=== PATIENT | male | born 1965 | race Hispanic/Latino ===

== ENCOUNTER 2017-07-15 22:59 | Emergency (ER) | payer MEDICARE, OTHER ==
[2017-07-15 23:01] VITALS: BMI 29.2
[2017-07-15 23:21] VITALS: O2SAT 98
[2017-07-15 23:52] VITALS: BP 143/82; PULSE 59; RESP 17; TEMP 98.8
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
== END 2017-07-16 00:38 | disposition home or self-care (01) ==
LOC: ED 22:59
DX: Z00.00 Encounter for general adult medical examination without abnormal findings (principal); I10 Essential (primary) hypertension; J44.9 Chronic obstructive pulmonary disease, unspecified

== ENCOUNTER 2018-06-08 18:04 | Inpatient (IN) | payer MEDICARE, OTHER ==
[2018-06-08 18:04] VITALS: BMI 29.2
[2018-06-08 18:22] LABS: BASO # 0.02 K/mm3 (0.0-2.0); BASO % 0.3 % (0.0-3.0); EOS # 0.1 (0.0-0.7); EOS % 1.5 % (1.5-5.0); GRAN # 4.87 (1.4-6.5); GRAN % 71.3 % (50.0-68.0); HEMOGLOBIN 12.3 g/dL (14.0-18.0); LYMPH # 1.3 (1.2-3.4); LYMPH % 18.4 % (22.0-35.0); MEAN CELL VOLUME 96.5 fl (80.0-105.0); MEAN CORPUSCULAR HEMOGLOBIN 32.9 pg (25.0-35.0); MEAN CORPUSCULAR HGB CONC 34.1 g/dl (31.0-37.0); MEAN PLATELET VOLUME 8.7 fl (7.0-11.0); MONO # 0.6 (0.1-0.6); MONO % 8.5 % (1.0-6.0); RBC 3.74 10^6/uL (3.5-6.1); RED CELL DISTRIBUTION WIDTH 13.3 % (11.5-14.5); WHITE BLOOD COUNT 6.8 10^3/ul (4.5-11.0)
[2018-06-08 18:32] LABS: INR 1.14; PARTIAL THROMBOPLASTIN TIME 34.3 Seconds (25.1-36.5)
[2018-06-08 18:34] LABS: ALB/GLOB RATIO 1.4 (1.1-1.8); ALBUMIN 4.2 g/dL (3.0-4.8); ALT/SGPT 29 U/L (7-56); AST/SGOT 52 U/L (17-59); BLOOD UREA NITROGEN 8 mg/dL (7-21); CALCIUM 8.8 mg/dL (8.4-10.5); GFR NON-AFRICAN AMERICAN > 60
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
[2018-06-08] MEDS ORDERED: Ergocalciferol 50,000 Intl Units Cap PO SCH (19:30)
[2018-06-08] MEDS ORDERED: Multivitamin (MVI) 10 ML, Thiamine 100 MG, Folic Acid 1 MG in Sodium Chloride 0.9% 1,00... IV ONE (19:35)
[2018-06-08 19:43] LABS: URINE APPEARANCE CLEAR (CLEAR); URINE BILIRUBIN NEGATIVE (NEGATIVE); URINE BLOOD SMALL (NEGATIVE); URINE COLOR LIGHT YELLOW (YELLOW); URINE GLUCOSE (UA) NEGATIVE (NEGATIVE); URINE LEUKOCYTE ESTERASE NEGATIVE Leu/uL (NEGATIVE); URINE PROTEIN NEGATIVE mg/dL (<30 mg/dL); URINE UROBILINOGEN 0.2 E.U./dL (<1 E.U./dL)
[2018-06-08] MEDS: Ergocalciferol 50,000 Intl Units Cap PO SCH (19:46)
[2018-06-08 19:52] LABS: URINE BACTERIA NEG (NEG); URINE EPITHELIAL CELLS 0 - 2 /hpf (0-5); URINE HYALINE CAST 0 - 2 /hpf; URINE RBC 0 - 2 /hpf (0-2); URINE WBC NEGATIVE /hpf (0-6)
[2018-06-08] MEDS ORDERED: Levalbuterol 1.25 MG/3 ML Inhal Soln UD IH SCH (20:00)
[2018-06-08] MEDS: Magnesium Sulfate 2 gm/50 ml 2 GM/50 ML BAG IVPB SCH (22:47)
[2018-06-08 23:31] LABS: TROPONIN I 0.03 ng/mL
[2018-06-08 23:34] LABS: CK MB% 0.9 % (2.5-3.0); CK-MB 5.7 ng/mL (0.0-3.6)
[2018-06-08 23:36] LABS: FREE T4 0.75 ng/dL (0.78-2.19); T4 6.8 ug/dL (5.5-11.0)
[2018-06-09 01:32] LABS: BARBITURATES, UR NEGATIVE (NEGATIVE); BENZODIAZEPINES, UR NEGATIVE (NEGATIVE); OPIATES, UR NEGATIVE (NEGATIVE); PHENCYCLIDINE, UR NEGATIVE (NEGATIVE)
[2018-06-09 01:34] LABS: CK MB% 0.8 % (2.5-3.0); CK-MB 5.7 ng/mL (0.0-3.6); TROPONIN I 0.19 ng/mL
[2018-06-09] MEDS: Magnesium Sulfate 2 gm/50 ml 2 GM/50 ML BAG IVPB SCH (03:40)
[2018-06-09] MEDS: Pantoprazole 40 mg EC Tab PO SCH (06:07)
[2018-06-09 06:39] LABS: BASO # 0.03 K/mm3 (0.0-2.0); BASO % 0.3 % (0.0-3.0); EOS % 0.5 % (1.5-5.0); GRAN # 5.74 (1.4-6.5); GRAN % 65.3 % (50.0-68.0); HEMOGLOBIN 11.6 g/dL (14.0-18.0); LYMPH # 2.2 (1.2-3.4); LYMPH % 24.5 % (22.0-35.0); MEAN CELL VOLUME 95.5 fl (80.0-105.0); MEAN CORPUSCULAR HEMOGLOBIN 32.5 pg (25.0-35.0); MEAN PLATELET VOLUME 8.7 fl (7.0-11.0); MONO # 0.8 (0.1-0.6); MONO % 9.4 % (1.0-6.0); RBC 3.57 10^6/uL (3.5-6.1); RED CELL DISTRIBUTION WIDTH 13.2 % (11.5-14.5); WHITE BLOOD COUNT 8.8 10^3/ul (4.5-11.0)
[2018-06-09 07:04] LABS: ALB/GLOB RATIO 1.2 (1.1-1.8); ALBUMIN 3.7 g/dL (3.0-4.8); ALT/SGPT 29 U/L (7-56); AST/SGOT 50 U/L (17-59); BILIRUBIN,DIRECT 0.1 mg/dL (0.0-0.4); BLOOD UREA NITROGEN 6 mg/dL (7-21); CALCIUM 8.5 mg/dL (8.4-10.5); GFR NON-AFRICAN AMERICAN > 60; HDL CHOLESTEROL 59 mg/dL (29-60); TROPONIN I 0.18 ng/mL
[2018-06-09 07:05] LABS: LDL CHOLESTEROL 56 mg/dL (0-129)
--- NOTE | 2018-06-09 07:05 | HP ---
HISTORY OF PRESENT ILLNESS: The patient is a 52-year-old male was brought to the [facility] emergency room by [facility]. According to the patient's mother, the patient was brought to the emergency room after the patient sustained multiple seizures and the patient's mother witnessed the patient's seizure and even once seizure was witnessed by EMS. The patient was found to be unresponsive by the EMS and bright blood was noted in the nostrils. The patient was placed on nonrebreather bath, fingerstick blood sugar was checked which was 108 and the patient was brought to the emergency room for evaluation as per the triage note. According to the ER physician evaluation, the patient was brought to the emergency room and they found the patient in the apartment floor. The patient was in the bathroom and he fell in the floor during the seizure. Mother has noticed that the patient has not been taking his Dilantin. When the EMS was present, the patient had two witnessed seizure. The patient was transferred to [facility] emergency room. Recently in the last couple of weeks, the patient's mother has contacted the office and informed that the patient is missing but today after the patient's mother called back to me, the patient's mother stated that the patient was found [place] [address] and she brought him back but also the patient's mother stated that the patient was in the emergency room at [facility] because the patient had some papers in the emergency room and according to the [facility] record, the patient was in the emergency room 05/25 to 05/26 and the discharge diagnosis was substance abuse where the patient had a CT of the head done. The patient was seen in the emergency room in stretcher #3. The patient is seen lying in the bed. CODE STATUS: Full code. LIVING WILL ADVANCE DIRECTIVE: None. ALLERGIES: Aspirin. HEIGHT: 6 feet. WEIGHT: 170. BMI: 23. HOME MEDICATIONS: The patient's most active home medications as per our last office visit. The patient is supposed to be on Crestor 20 mg daily; vitamin B12 injection once a month; Periactin 4 mg twice a day; Dilantin 200 mg 8 a.m., Dilantin 100 mg 2 p.m. and Dilantin 200 mg 8 p.m.; Drisdol 50,000 every 2 weeks; folic acid 1 mg daily; Lexapro 10 mg daily; and Prilosec [id number] which the patient takes. SOCIAL HISTORY: Positive for smoking and alcohol. History of cocaine abuse, history of alcohol dependence, history of nicotine addiction. OCCUPATIONAL HISTORY: Disabled. PAST MEDICAL HISTORY: History of bilateral craniotomy, history of head trauma, history of recurrent fall, history of seizure disorder, posttraumatic brain injury, history of vitamin B12 deficiency, history of poor appetite, history of hypovitaminosis D, history of depression, history of inpatient psychiatric hospitalizations, history of extremely poor compliance, history of cerebral cortical atrophy of the brain, history of left temporal lobe seizure focus, history of right-sided pulmonary nodule, history of multiple falls, history of multiple facial trauma, history of left occipital lobe cystic encephalomalacia, history of small vessel ischemic disease of the brain, history of pulmonary hypertension with right ventricular systolic pressure of 60 mmHg, history of moderate tricuspid regurgitation, history of [id number] pulmonary hypertension, history of URI, history of intermittent incomplete right bundle-branch block. Past medical history is also significant for seizure disorder with left cerebral dysfunction and history of epileptogenic focus in the left temporal lobe, history of simple partial seizures originating in the left cerebral hemisphere with secondary generalization. 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 PHYSICAL EXAMINATION: GENERAL: The patient is seen in stretcher #3. The patient is seen lying in the bed. The patient is on nonrebreather mask, but arousable to verbal stimuli. VITAL SIGNS: T-max 97.6. Telemetry shows sinus rhythm, sinus bradycardia, heart rate 54, 57; blood pressure 152/84, 147/80, 131/81, 134/81, 134/89; respiration 20-21; O2 sat 100%. The patient is seen lying in the bed. HEENT: The patient's head examination shows positive craniotomy. Pinkish pale conjunctivae. Dry oral mucosa. Positive contusion of the face and nose noted. No neck rigidity. CHEST: Kyphosis. LUNGS: Examination shows positive rhonchi bilaterally, upper lung field. CARDIOVASCULAR: S1, S2. Positive systolic murmur at left sternal border, right second intercostal space, left second intercostal space. ABDOMEN: Soft. Positive bowel sounds. No hepatosplenomegaly noted. GENITALIA: Male. RECTAL: Examination is deferred. EXTREMITIES: Shows no pitting edema, no calf tenderness, no Homans' sign. MUSCULOSKELETAL: Examination shows a body mass index of 23. NEUROLOGIC: The patient is arousable, responsive to painful verbal stimuli. Patient's neurological examination is limited but arousable to painful verbal stimuli. The patient is able to move upper and lower extremity to painful stimuli. The patient is disoriented, but arousable. DIAGNOSTICS: CBC: Hemoglobin/hematocrit 12.3/36.1, granulocytes 71. PT/PTT 13 and 34. Chemistry: LFTs are significant for magnesium was 1.6. Small blood in the urinalysis. Dilantin level less than 3. Alcohol level less than 10. Urine drug screen pending. The patient had a CT of the head and maxillofacial CT which was reviewed. The patient was seen and evaluated in the emergency room by the ER physician, Dr. Jamil. The patient was treated in the emergency room. The patient was given IV Dilantin 1 g. The patient was advised to be admitted. The patient was treated in the emergency room by Dr. Jamil. The patient was given Ativan 2 mg x2 doses. The patient was given Dilantin 1 g IV load. The patient was admitted to the [facility]. The patient's recent discharge papers from [facility] and papers from which the patient has accompanied shows that the patient has been having suicidal ideation. IMPRESSION: 1. Recurrent witnessed seizures secondary to noncompliance with antiepileptic drugs. 2. Questionable suicidal ideation. 3. Postictal state. 4. Bradycardia. 5. Hypertension. 6. History of history of traumatic brain injury, history of multiple bilateral craniotomy. 7. Anemia. 8. Granulocytosis. 9. Hypomagnesemia. 10. Microscopic hematuria. 11. History of active nicotine, alcohol and drug use and dependence. 12. Facial contusion secondary to fall. 13. Bilateral nasal bone fracture with displacement to the right. 14. Chronic microvascular ischemic disease of the brain. 15. Bifrontal scalp swelling. 16. Gait dysfunction and recurrent falls. PLAN: At this time, the patient is being ordered Dilantin level which is done. The patient has been ordered a urine drug screen. Thyroid panel has been ordered. Repeat CPK, troponin, Dilantin level, CMP, LFTs, lipid panel, CBC have been ordered. Neurology, ENT and Psychiatry consultation has been ordered. RPR is ordered. The patient's current medications; the patient is on banana bag. The patient has been given Colace 100 three times a day, Dilantin 1 g IV was given in the emergency room, Drisdol 50,000 weekly, DuoNeb nebulizer every 6 hours, Ecotrin 81 mg daily, folic acid 1 mg daily, heparin 5000 subcu every 8, Lipitor 40 mg daily, magnesium sulfate rider x2, nicotine patch 21 mg daily, Protonix 40 mg daily, Tylenol p.o. suppository p.r.n., thiamine 100 mg daily, vitamin B12 to be resumed 1000 mcg, Xopenex nebulizer 0.63 mg every 6 hours, Zofran 4 mg IV every 4 hours p.r.n., incentive spirometry, oxygen 2 liters. EEG. The patient is kept n.p.o. at this time because of the postictal state. The patient has been ordered elevation of the head of the bed at 30 degrees. Neuro checks, seizure precaution, CURT stockings, SCDs, speech swallow, physical therapy, occupational therapy evaluation and treatment. At present, the patient is awaiting for a telemetry bed in the emergency room. The patient's further management will be dependent upon the patient's clinical condition, hemodynamic status and as per the patient's response to therapeutic intervention as per the patient's diagnostic test results. The patient's overall prognosis is guarded to poor, which the patient's mother is aware of. Dictated and electronically signed, not read. Stephen Thornton MD
[2018-06-09] MEDS ORDERED: Pantoprazole 20 mg EC Tab PO SCH (07:30)
[2018-06-09 07:42] LABS: CK-MB 3.5 ng/mL (0.0-3.6)
[2018-06-09] MEDS ORDERED: Sodium Chloride 0.9% 250 ML IV STA (09:15)
--- NOTE | 2018-06-09 09:25 | RAD ---
Date of service: 06/08/2018 HISTORY: seizure COMPARISON: 11/12/2015 FINDINGS: LUNGS: No active pulmonary disease. PLEURA: No significant pleural effusion identified, no pneumothorax apparent. CARDIOVASCULAR: Normal. OSSEOUS STRUCTURES: Multiple old healed right rib fractures. Probable old healed right clavicular fracture. VISUALIZED UPPER ABDOMEN: Normal. OTHER FINDINGS: None. IMPRESSION: No active disease. Multiple old healed right rib fractures. Probable old healed right clavicular fracture.
--- NOTE | 2018-06-09 09:49 | CARD ---
APPROVED REPORT Date of service: 06/08/2018 EKG Measurement Heart [id number] <Conclusion> Sinus rhythm with 1 PVC C/W ECG 11/12/15: No IRBBB and improved repolarization now.
[2018-06-09] MEDS: Enoxaparin 40 mg Syringe SC SCH (10:11)
[2018-06-09] MEDS: Sodium Chloride 0.9% 1,000 ML IV SCH ×2 (10:16→20:23)
--- NOTE | 2018-06-09 10:47 | CON ---
DATE: 06/09/2018 HISTORY OF PRESENT ILLNESS: The patient is a 52-year-old male who is brought in by [facility] after being found at home. The patient has had apparently a long history of seizures and it was likely to have a seizure at home. He was found unresponsive. PAST MEDICAL HISTORY: The patient's past medical history is notable for previous history of seizures. He also has a long history of substance abuse. The patient is unable and unwilling to give history, so most of his history is done through his past medical records. He has been hospitalized in the past for psychiatric issues as documented, pulmonary hypertension as well as a history of dementia and cognitive issues. SOCIAL HISTORY: He is an active smoker and has a drug and alcohol abuse history. PHYSICAL EXAMINATION: GENERAL: Currently, the patient is in bed. He is unwilling to be examined and unwilling to give history. VITAL SIGNS: The blood pressure is 101/68, the heart rates in the 50s. NECK: Negative JVD. LUNGS: Decreased breath sounds. HEART: Reveal S1, S2. EXTREMITIES: Without edema. EKG shows no acute changes. LABORATORY DATA: Hemoglobin is 11.6. Chemistries, troponins are 0.19 and 0.18, BUN and creatinine unremarkable. Magnesium is normal at 2.7. IMPRESSION: 1. Elevated troponins. 2. Normal EKG. 3. History of seizures. 4. Hepatitis C. 5. History of substance abuse. 6. Chronic obstructive pulmonary disease. 7. Pulmonary hypertension. 8. History of alcoholism. Given these findings, we will need to rule out a pulmonary embolism as a cause of his elevated troponin. The patient is not in any condition at this point to consider cardiac catheterization if his CT scan comes back normal or CT scan has ruled out a pulmonary embolism. Given his seizure disorder, I do not feel anticoagulation would be appropriate. Javier Reynoso MD
--- NOTE | 2018-06-09 13:30 | CARD ---
APPROVED REPORT Date of service: 06/09/2018 EKG Measurement Heart [id number] <Conclusion> Marked sinus bradycardia
--- NOTE | 2018-06-09 14:44 | CP.PCM.HP ---
History of Present Illness - History of Present Illness History of Present Illness: PGY-[address] Thornton Mr Chambers is a 50-year-old man with a past medical history of alcohol use disorder, history of seizure disorder, Hepatitis C, who was transported by EMS to the Emergency Department where they found him on the apartment floor. Per EMS patient was in the bathroom where he presumably fell to the floor during his seizure. Grandmother also notes he has not been taking his seizure mediations for the past 6 months. Per retail pharmacy manager on route patient was unresponsive, had 2 seizures with no foaming with eyes closed. The patient was awake and alert but not answering questions thus a thorough review of systems and history could not be collected. It's possible he was post-ictal. PMD: Dr Thornton PMHx: alcohol use disorder, history of seizure disorder, Hepatitis C Present on Admission - Present on Admission Any Indicators Present on Admission: No Review of Systems - Review of Systems Systems not reviewed;Unavailable: Uncooperative Past Patient History - Infectious Disease Hx of Infectious Diseases: None - Past Social History Smoking Status: Heavy Smoker > 10 Cigarettes Daily - CARDIAC Hx Cardiac Disorders: Yes Hx Hypertension: Yes - PULMONARY Hx Respiratory Disorders: Yes Hx Chronic Obstructive Pulmonary Disease (COPD): Yes - NEUROLOGICAL Hx Neurological Disorder: Yes Hx Alzheimer's Disease: Yes Hx Dementia: Yes Hx Seizures: Yes (EPILEPSY) - HEENT Hx HEENT Problems: Yes Hx Difficulty Chewing: Yes - RENAL Hx Chronic Kidney Disease: No - ENDOCRINE/METABOLIC Hx Endocrine Disorders: No - HEMATOLOGICAL/ONCOLOGICAL Hx Blood Disorders: Yes Hx Hepatitis C: Yes - INTEGUMENTARY Hx Dermatological Problems: Yes Other/Comment: large abrasion to left side of face and left lateral eye, multiple bruises to both knees, pt is unkempt, thick hard toenails and dry fl akey skin to both feet, small scratch to right 2nd knuckle - MUSCULOSKELETAL/RHEUMATOLOGICAL Hx Musculoskeletal Disorders: Yes Hx Falls: Yes - GASTROINTESTINAL Hx Gastrointestinal Disorders: No - GENITOURINARY/GYNECOLOGICAL Hx Genitourinary Disorders: No - PSYCHIATRIC Hx Psychophysiologic Disorder: Yes Hx Psychosis: Yes - SURGICAL HISTORY Hx Surgeries: Yes Other/Comment: left LE fracture merlyn placed. craniotomy. BL clifford hole - ANESTHESIA Hx Anesthesia: No Hx Anesthesia Reactions: No Hx Malignant Hyperthermia: No Meds Allergies/Adverse Reactions: Allergies Allergy/AdvReac Type Severity Reaction Status Date / Time No Known Allergies Allergy Verified 06/09/18 12:06 Physical Exam - Constitutional Appears: Unkempt, Older Than Stated Age, Chronically Ill - Head Exam Head Exam: ATRAUMATIC, NORMAL INSPECTION - Eye Exam Eye Exam: EOMI, Normal appearance, PERRL - ENT Exam ENT Exam: Mucous Membranes Dry - Neck Exam Neck exam: Positive for: Normal Inspection. Negative for: Thyromegaly - Respiratory Exam Respiratory Exam: Clear to Auscultation Bilateral, NORMAL BREATHING PATTERN. absent: Rales, Rhonchi, Wheezes - Cardiovascular Exam Cardiovascular Exam: REGULAR RHYTHM, +S1, +S2. absent: Tachycardia, JVD, Systolic Murmur - GI/Abdominal Exam GI & Abdominal Exam: Normal Bowel Sounds. absent: Tenderness - Extremities Exam Extremities exam: Positive for: normal inspection - Neurological Exam Neurological exam: Alert Additional comments: patient not cooperative with neuro exam, possibly post-ictal - Psychiatric Exam Psychiatric exam: Flat Affect - Skin Skin Exam: Normal Color, Warm Additional comments: tattoo's all over body Results - Vital Signs Recent Vital Signs: Last Vital Signs Temp 98 F 06/09/18 13:52 Pulse 60 06/09/18 14:37 Resp 20 06/09/18 14:37 BP 117/63 06/09/18 14:37 Pulse Ox 98 06/09/18 14:37 - Labs Result Diagrams: 06/09/18 06:20 06/09/18 06:20 Labs: Laboratory Results - last 24 hr 06/08/18 06/08/18 06/08/18 18:19 18:19 18:19 WBC 6.8 RBC 3.74 Hgb 12.3 L Hct 36.1 L MCV 96.5 MCH 32.9 MCHC 34.1 RDW 13.3 Plt Count 283 MPV 8.7 Gran % 71.3 H Lymph % (Auto) 18.4 L Avery % (Auto) 8.5 H Eos % (Auto) 1.5 Baso % (Auto) 0.3 Gran # 4.87 Lymph # (Auto) 1.3 Avery # (Auto) 0.6 Eos # (Auto) 0.1 Baso # (Auto) 0.02 PT 13.0 H INR 1.14 APTT 34.3 Sodium 140 Potassium 3.7 Chloride 104 Carbon Dioxide 22 Anion Gap 18 BUN 8 Creatinine 0.7 L Est GFR ( Amer) > 60 Est GFR (Non-Af Amer) > 60 Random Glucose 105 Calcium 8.8 Phosphorus 3.3 Magnesium 1.6 L Total Bilirubin 0.3 Direct Bilirubin AST 52 ALT 29 Alkaline Phosphatase 118 Total Creatine Kinase CK-MB (CK-2) CK-MB (CK-2) % Troponin I Total Protein 7.4 Albumin 4.2 Globulin 3.1 Albumin/Globulin Ratio 1.4 Triglycerides Cholesterol LDL Cholesterol Direct HDL Cholesterol Free T4 Thyroxine (T4) TSH 3rd Generation Urine Color Urine Appearance Urine pH Ur Specific [place] Urine Protein Urine Glucose (UA) Urine Ketones Urine Blood Urine Nitrate Urine Bilirubin Urine Urobilinogen Ur Leukocyte Esterase Urine RBC Urine WBC Ur Epithelial Cells Urine Bacteria Hyaline Casts Urine Opiates Screen Urine Methadone Screen Ur Barbiturates Screen Phenytoin Ur Phencyclidine Scrn Ur Amphetamines Screen U Benzodiazepines Scrn U Oth Cocaine Metabols U Cannabinoids Screen Alcohol, Quantitative 06/08/18 06/08/18 06/08/18 18:19 18:19 18:19 WBC RBC Hgb Hct MCV MCH MCHC RDW Plt Count MPV Gran % Lymph % (Auto) Avery % (Auto) Eos % (Auto) Baso % (Auto) Gran # Lymph # (Auto) Avery # (Auto) Eos # (Auto) Baso # (Auto) PT INR APTT Sodium Potassium Chloride Carbon Dioxide Anion Gap BUN Creatinine Est GFR ( Amer) Est GFR (Non-Af Amer) Random Glucose Calcium Phosphorus Magnesium Total Bilirubin Direct Bilirubin AST ALT Alkaline Phosphatase Total Creatine Kinase CK-MB (CK-2) CK-MB (CK-2) % Troponin I Total Protein Albumin Globulin Albumin/Globulin Ratio Triglycerides Cholesterol LDL Cholesterol Direct HDL Cholesterol Free T4 0.75 L Thyroxine (T4) 6.8 TSH 3rd Generation 3.12 Urine Color Urine Appearance Urine pH Ur Specific [place] Urine Protein Urine Glucose (UA) Urine Ketones Urine Blood Urine Nitrate Urine Bilirubin Urine Urobilinogen Ur Leukocyte Esterase Urine RBC Urine WBC Ur Epithelial Cells Urine Bacteria Hyaline Casts Urine Opiates Screen Urine Methadone Screen Ur Barbiturates Screen Phenytoin < 3 L Ur Phencyclidine Scrn Ur Amphetamines Screen U Benzodiazepines Scrn U Oth Cocaine Metabols U Cannabinoids Screen Alcohol, Quantitative < 10 06/08/18 06/08/18 06/09/18 18:19 19:37 00:00 WBC RBC Hgb Hct MCV MCH MCHC RDW Plt Count MPV Gran % Lymph % (Auto) Avery % (Auto) Eos % (Auto) Baso % (Auto) Gran # Lymph # (Auto) Avery # (Auto) Eos # (Auto) Baso # (Auto) PT INR APTT Sodium Potassium Chloride Carbon Dioxide Anion Gap BUN Creatinine Est GFR ( Amer) Est GFR (Non-Af Amer) Random Glucose Calcium Phosphorus Magnesium Total Bilirubin Direct Bilirubin AST ALT Alkaline Phosphatase Total Creatine Kinase 632 H CK-MB (CK-2) 5.7 H CK-MB (CK-2) % 0.9 L Troponin I 0.03 D Total Protein Albumin Globulin Albumin/Globulin Ratio Triglycerides Cholesterol LDL Cholesterol Direct HDL Cholesterol Free T4 Thyroxine (T4) TSH 3rd Generation Urine Color Light yellow Urine Appearance Clear Urine pH 6.0 Ur Specific [place] 1.020 Urine Protein Negative Urine Glucose (UA) Negative Urine Ketones Negative Urine Blood Small H Urine Nitrate Negative Urine Bilirubin Negative Urine Urobilinogen 0.2 Ur Leukocyte Esterase Negative Urine RBC 0 - 2 Urine WBC Negative Ur Epithelial Cells 0 - 2 Urine Bacteria Neg Hyaline Casts 0 - 2 Urine Opiates Screen Negative Urine Methadone Screen Negative Ur Barbiturates Screen Negative Phenytoin Ur Phencyclidine Scrn Negative Ur Amphetamines Screen Negative U Benzodiazepines Scrn Negative U Oth Cocaine Metabols Negative U Cannabinoids Screen Positive H Alcohol, Quantitative 06/09/18 06/09/18 06/09/18 00:32 06:20 06:20 WBC 8.8 D RBC 3.57 Hgb 11.6 L Hct 34.1 L MCV 95.5 MCH 32.5 MCHC 34.0 RDW 13.2 Plt Count 286 MPV 8.7 Gran % 65.3 Lymph % (Auto) 24.5 Avery % (Auto) 9.4 H Eos % (Auto) 0.5 L Baso % (Auto) 0.3 Gran # 5.74 Lymph # (Auto) 2.2 Avery # (Auto) 0.8 H Eos # (Auto) 0.0 Baso # (Auto) 0.03 PT INR APTT Sodium 139 Potassium 3.7 Chloride 104 Carbon Dioxide 28 Anion Gap 11 BUN 6 L Creatinine 0.7 L Est GFR ( Amer) > 60 Est GFR (Non-Af Amer) > 60 Random Glucose 85 Calcium 8.5 Phosphorus Magnesium 2.7 H Total Bilirubin 0.3 Direct Bilirubin 0.1 AST 50 ALT 29 Alkaline Phosphatase 109 Total Creatine Kinase 733 H 650 H CK-MB (CK-2) 5.7 H 3.5 CK-MB (CK-2) % 0.8 L Cancelled Troponin I 0.19 H* D 0.18 H* Total Protein 6.6 Albumin 3.7 Globulin 2.9 Albumin/Globulin Ratio 1.2 Triglycerides 61 Cholesterol 147 LDL Cholesterol Direct 56 HDL Cholesterol 59 Free T4 Thyroxine (T4) TSH 3rd Generation Urine Color Urine Appearance Urine pH Ur Specific [place] Urine Protein Urine Glucose (UA) Urine Ketones Urine Blood Urine Nitrate Urine Bilirubin Urine Urobilinogen Ur Leukocyte Esterase Urine RBC Urine WBC Ur Epithelial Cells Urine Bacteria Hyaline Casts Urine Opiates Screen Urine Methadone Screen Ur Barbiturates Screen Phenytoin Ur Phencyclidine Scrn Ur Amphetamines Screen U Benzodiazepines Scrn U Oth Cocaine Metabols U Cannabinoids Screen Alcohol, Quantitative 06/09/18 06:20 WBC RBC Hgb Hct MCV MCH MCHC RDW Plt Count MPV Gran % Lymph % (Auto) Avery % (Auto) Eos % (Auto) Baso % (Auto) Gran # Lymph # (Auto) Avery # (Auto) Eos # (Auto) Baso # (Auto) PT INR APTT Sodium Potassium Chloride Carbon Dioxide Anion Gap BUN Creatinine Est GFR ( Amer) Est GFR (Non-Af Amer) Random Glucose Calcium Phosphorus Magnesium Total Bilirubin Direct Bilirubin AST ALT Alkaline Phosphatase Total Creatine Kinase CK-MB (CK-2) CK-MB (CK-2) % Troponin I Total Protein Albumin Globulin Albumin/Globulin Ratio Triglycerides Cholesterol LDL Cholesterol Direct HDL Cholesterol Free T4 Thyroxine (T4) TSH 3rd Generation Urine Color Urine Appearance Urine pH Ur Specific [place] Urine Protein Urine Glucose (UA) Urine Ketones Urine Blood Urine Nitrate Urine Bilirubin Urine Urobilinogen Ur Leukocyte Esterase Urine RBC Urine WBC Ur Epithelial Cells Urine Bacteria Hyaline Casts Urine Opiates Screen Urine Methadone Screen Ur Barbiturates Screen Phenytoin 14 Ur Phencyclidine Scrn Ur Amphetamines Screen U Benzodiazepines Scrn U Oth Cocaine Metabols U Cannabinoids Screen Alcohol, Quantitative Assessment & Plan - Assessment and Plan (Free Text) Plan: Mr Chambers is a 50-year-old man with a past medical history of alcohol use disorder, history of seizure disorder, Hepatitis C, who was transported by EMS to the Emergency Department for seizure activity: Seizure Disorder -Likely due to home medication non-compliance -Dilantin 1000mg ivp given in ED -Consult neurology, Dr Rolo Perry -CK 632 on admission -F/U Dilantin level * Home dose is dilantin 200mg po tid -F/U EEG -NPO, seizure precautions, urinary cath NSTEMI -Troponin 0.19 -> 0.18 -Consult program counselor, Dr Reynoso * Need to rule out PE as cause of his NSTEMI * Anticoagulation inappropriate given his seizure disorder -Aspirin 81mg po qd -Aspirin 300mg rc qd -Atorvastatin 40mg po din Nasal Fracture -10/17 to fall -Consult otolaryngology, Dr Garcia -CT maxillofacial w/o contrast: * Bilateral nasal bone fractures, minimally displaced to the right. No other calvarial fracture. -CT head w/o contrast: * Bifrontal scalp swelling. No calvarial fracture. No acute intracranial pathology. Age-related changes. No significant interval change. Suspect Suicidal Ideations -Consult Psychiatry, Dr Hernandez COPD -Saturating well on room air -Levalbuterol 0.63mg IH q6h Alcohol Use Disorder -Vitamin B12 1000mcg IM qd -Folic Acid 1mg po qd -Thiamine 100mg po qd Tobacco Use Disorder -Nicotine 21mg/24hr 1 patch td qd PPX -Lovenox 40mg sc qd -Protonix 40mg po qd -OT/PT/ST
[2018-06-09] MEDS ORDERED: levETIRAcetam Solution 100 MG/ML BOTTLE PO SCH (18:00)
--- NOTE | 2018-06-09 19:12 | CON ---
DATE: 06/09/2018 NEUROLOGY CONSULTATION CHIEF COMPLAINT: Seizure. HISTORY OF PRESENT ILLNESS: This is a 52-year-old man with past medical history of alcohol abuse, history of seizure disorder for many years, was on Dilantin, noncompliant, hepatitis C, was transported in this apartment floor. Per EMS, patient was in the bathroom, was presumably fell to the floor during seizure, grand mal, which states he has not been taking his seizure medication for past 6 months. On route, he had 2 seizures with no foaming, with eyes closed. He is currently mildly postictal and moves all extremities equally and evidence of peripheral neuropathy hepatitis C. PAST MEDICAL HISTORY: As above. SOCIAL HISTORY: Chronic EtOH use. No illicit drug use. Occasional smoker. ALLERGIES: ASPIRIN. REVIEW OF SYSTEMS: Fourteen-point review of systems is negative except as per the HPI. FAMILY HISTORY: Noncontributory. MEDICATIONS: Reviewed by nurses' reconciliation sheet. PHYSICAL EXAMINATION: GENERAL: The patient is sitting up in bed, in no acute distress. HEENT: Atraumatic, normocephalic. PERRLA. Extraocular muscles intact. NECK: Supple. No JVD, no adenopathy noted. LUNGS: Clear to auscultation. No adventitious sounds. HEART: S1, S2. Normal rate and rhythm. No murmurs, rubs or gallops. ABDOMEN: Soft, nontender and nondistended. Bowel sounds are present. EXTREMITIES: No clubbing. No cyanosis. Peripheral pulses 2+ felt bilaterally. NEUROLOGIC: The patient is alert and oriented to person, place and year. Recall after 5 minutes is 0/3. Poor attention span. Slow thought process. Cranial nerves II through XII intact. Motor exam: Moves all extremities equally. No pronator drift seen. Sensory exam: Decreased light touch and pinprick up to the calves bilaterally. Decreased vibration of the toes. DTRs are 2+ throughout and 1 at both knees and ankles. Coordination: [id number] intact. No dysmetria noted. Has marked tremors at the extremities which is likely alcohol withdrawal. LABORATORY DATA: Sodium is 139, potassium 3.7, chloride 104, carbon dioxide of 28, BUN of 6, creatinine 0.7, random glucose of 85. ASSESSMENT AND PLAN: This is a 52-year-old man with history of chronic EtOH abuse and alcohol withdrawal seizures, history of seizures, history of hepatitis C with breakthrough seizures, was found on the floor. His CAT scan of the head showed no acute intracranial abnormalities, some mild bifrontal scalp swelling. He has bilateral nasal bone fractures displaced which ENT has been consulted. His breakthrough seizures likely secondary to noncompliance from seizures medications. He was on home Dilantin of 200 mg p.o. b.i.d. We will consider possibly . He was given IV push 1 g in the ER. We will consider start him on Keppra instead of Dilantin at 500 mg p.o. b.i.d. and seizure precautions and EEG. At this time, monitor electrolytes and correct according. [facility] protocol. Rolo Perry MD
[2018-06-09] MEDS: Albuterol-Ipratrop 3 mg / 0.5 (3 ml) UD IH SCH (20:02)
[2018-06-09] MEDS: levETIRAcetam 500mg IVPB 500 MG/100 ML BAG IVPB SCH (21:25)
[2018-06-09] MEDS ORDERED: levETIRAcetam 500 MG in Sodium Chloride 0.9% 100 ML IV SCH (22:00)
[2018-06-10] MEDS ORDERED: Levalbuterol 0.63 MG/3 ML Inhal Soln UD IH SCH (02:00)
[2018-06-10] MEDS: Albuterol-Ipratrop 3 mg / 0.5 (3 ml) UD IH SCH ×4 (02:20→20:11)
[2018-06-10] MEDS ORDERED: Pantoprazole 40 mg EC Tab PO SCH (06:00)
[2018-06-10] MEDS: Pantoprazole 40 mg EC Tab PO SCH (06:21)
[2018-06-10] MEDS: Sodium Chloride 0.9% 1,000 ML IV SCH ×2 (06:22→18:06)
[2018-06-10 06:26] LABS: BASO # 0.02 K/mm3 (0.0-2.0); BASO % 0.4 % (0.0-3.0); EOS # 0.1 (0.0-0.7); EOS % 2.7 % (1.5-5.0); GRAN # 2.53 (1.4-6.5); GRAN % 53.1 % (50.0-68.0); HEMOGLOBIN 10.9 g/dL (14.0-18.0); LYMPH # 1.6 (1.2-3.4); LYMPH % 33.3 % (22.0-35.0); MEAN CELL VOLUME 96.5 fl (80.0-105.0); MEAN CORPUSCULAR HEMOGLOBIN 31.8 pg (25.0-35.0); MEAN CORPUSCULAR HGB CONC 32.9 g/dl (31.0-37.0); MEAN PLATELET VOLUME 8.5 fl (7.0-11.0); MONO # 0.5 (0.1-0.6); MONO % 10.5 % (1.0-6.0); RBC 3.43 10^6/uL (3.5-6.1); RED CELL DISTRIBUTION WIDTH 13.3 % (11.5-14.5); WHITE BLOOD COUNT 4.8 10^3/ul (4.5-11.0)
[2018-06-10 06:51] LABS: TROPONIN I 0.03 ng/mL
[2018-06-10 06:54] LABS: ALB/GLOB RATIO 1.1 (1.1-1.8); ALBUMIN 3.2 g/dL (3.0-4.8); ALT/SGPT 29 U/L (7-56); AST/SGOT 38 U/L (17-59); BILIRUBIN,DIRECT 0.3 mg/dL (0.0-0.4); BLOOD UREA NITROGEN 7 mg/dL (7-21); CALCIUM 8.5 mg/dL (8.4-10.5); GFR NON-AFRICAN AMERICAN > 60
[2018-06-10 07:15] LABS: CK-MB 2.1 ng/mL (0.0-3.6)
[2018-06-10] MEDS ORDERED: Potassium Chloride 20 mEq ER Tab PO ONE (07:32)
[2018-06-10] MEDS ORDERED: Potassium Chloride 20 mEq/15 ml LIQ UD PO STA (08:02)
--- NOTE | 2018-06-10 08:21 | PN ---
DATE: 06/10/2018 CARDIOLOGY FOLLOWUP SUBJECTIVE: The patient is in bed, sleeping. No distress noted. PHYSICAL EXAMINATION: VITAL SIGNS: Blood pressure is 124/62, the heart rate is in the 40s. NECK: Negative JVD. LUNGS: Without rales. HEART: Reveals S1, S2. EXTREMITIES: Without edema. LABORATORY DATA: Hemoglobin is 10. Chemistries: The troponins are back to normal. BUN and creatinine are unremarkable. Potassium is 3. IMPRESSION: 1. Recurrent seizure disorder. 2. Transient elevated troponins with no evidence for acute coronary syndrome. 3. Chronic obstructive pulmonary disease. 4. Pulmonary hypertension. 5. History of alcoholism. 6. Hepatitis C. PLAN: Given these findings, the patient is stable from a hemodynamic perspective. We will discontinue telemetry today. Javier Reynoso MD
--- NOTE | 2018-06-10 08:25 | CON ---
DATE: 06/09/2018 HISTORY OF PRESENT ILLNESS: This is a 52-year-old male as a request of the ER secondary to nasal/facial trauma. He is now evaluated in ER holding acutely over the last 24 hours, admitted and he has been worked up for facial and/or trauma. This 52-year-old male who has never been seen before, but mom is well known to the ENT group, which she had surgery in the past and has been followed multiple years. On her request, the ER asked for ENT evaluation. A 52-year-old male with grand mal seizure over the night with complete loss of consciousness, on falling, traumatized face. There is swelling and abrasion throughout the mid face. There is blood, dry, no active bleeding in the nostrils or nares. PHYSICAL EXAMINATION: HEENT: Ears noted to be clear and intact. Oropharynx noted to be clear. Dry blood noted in the posterior, no active bleeding in the nose. Severe swelling, but nondisplaced nasal bones. Septum was noted to be midline with noted airway. Patient tolerated the exam. IMPRESSION: Nasal bone fracture with non-displacement of the nasal bones. It was discussed with the patient as well as the mother. If further evaluation over the next 24 to 48 hours or over the next week to 2 weeks, patient should be reevaluated in the office of the [facility] for possible treatment. At this point, this nondisplaced nasal bone fracture does not need any type of reduction. Patient denies any difficulty breathing through nose and he is not actively bleeding. Protocol for medical therapy for intermittent bleeds was discussed. Patient will be discharged per the emergency room and placed on an antibiotic. There are other aspects of medical care that are being treated at this time. Patient was advised to follow up in my office. Darian Garcia DO
--- NOTE | 2018-06-10 08:49 | PN ---
DATE: 06/09/2018 SUBJECTIVE: The patient was seen in the ER holding area, bed #18. The patient is lying in the bed but the patient is much more arousable. The patient appears disheveled with overgrown moody. The patient is responsive, alert, awake, in no distress. Overnight nurse's notes were reviewed. The patient was found to be alert, awake, oriented x2. The patient was found to be in urinary retention, needed a Christianson catheter placement with the urine output of 2700. PHYSICAL EXAMINATION: VITAL SIGNS: T-max 98.2. Telemetry shows sinus rhythm, sinus bradycardia; blood pressure has been running low 106/69, 85/50, 92/58, 93/68, 97/55; respiration 20; O2 sat 97%-100%. HEENT: Head: Examination normocephalic, atraumatic. HEENT examination shows overgrown moody and with scalp hair, disheveled appearance, pinkish pale conjunctivae, dry oral mucosa. No neck rigidity. Positive craniotomy surgical scar noted. CHEST: Kyphosis. LUNGS: Examination shows occasional rhonchi upper lung hancock. CARDIOVASCULAR: S1, S2, regular rhythm. ABDOMEN: Soft. Positive bowel sound. GENITALIA: Male. The patient has a Christianson catheter placement. RECTAL: Examination deferred. EXTREMITIES: Shows no pitting edema, no calf tenderness, no Homans' sign. MUSCULOSKELETAL: Examination shows a body mass index of 23. NEUROLOGIC: The patient is alert, awake, responsive, arousable, follows command. Moves upper and lower extremities to painful and verbal stimuli. DIAGNOSTICS: 06/09, hemoglobin/hematocrit 11.6/34.1, platelet 286. CMP: LFTs shows CPK 650. Troponin peaked up to 0.19. Cholesterol 147, LDL 56. TSH is normal. Urinalysis small blood. Urine drug screen positive for cannabinoids. Dilantin level was less than 3 yesterday, 14 today after Dilantin 1 g was given yesterday. Alcohol level less than 10. RPR nonreactive. The EKG was done which was reviewed which shows sinus bradycardia. Resolution of the right bundle-branch block. IMPRESSION: 1. Recurrent seizures. 2. History of nicotine, alcohol and drug abuse and dependence. 3. Possible alcohol withdrawal seizure. 4. History of traumatic brain injury. 5. History of craniotomy and traumatic brain injury. 6. Possible breakthrough seizure secondary to noncompliance with antiepileptic therapy. 7. Hypotension. 8. Bradycardia. 9. Normocytic anemia. 10. Granulocytosis. 11. Status post fall. 12. Facial contusion and bilateral nasal bone fracture, nondisplaced. 13. Hypomagnesemia. 14. Acute non-ST elevation myocardial infarction with elevated troponin. 15. Mild rhabdomyolysis. 16. Microscopic hematuria. 17. History of active alcohol, nicotine and drug abuse with urine drug screen positive for cannabinoids. 18. Bilateral nasal bone fracture minimally displaced to the right. 19. Bifrontal scalp swelling. 20. Biparietal craniotomy. 21. Cerebral cortical atrophy of the brain with chronic microvascular ischemic disease of the brain. 21. Deconditioning. 22. Gait dysfunction. 23. History of hepatitis C. 1. Recurrent witnessed seizures secondary to noncompliance with antiepileptic drugs. 2. Questionable suicidal ideation. 3. Postictal state. 4. Bradycardia. 5. Hypertension. 6. History of history of traumatic brain injury, history of multiple bilateral craniotomy. 7. Anemia. 8. Granulocytosis. 9. Hypomagnesemia. 10. Microscopic hematuria. 11. History of active nicotine, alcohol and drug use and dependence. 12. Facial contusion secondary to fall. 13. Bilateral nasal bone fracture with displacement to the right. 14. Chronic microvascular ischemic disease of the brain. 15. Bifrontal scalp swelling. 16. Gait dysfunction and recurrent falls. PLAN: At this time, the patient has been admitted to telemetry. Awaiting for a telemetry bed. Repeat labs, LFTs, troponin, CPK, CBC ordered. Repeat EKG ordered for the morning for evaluation of the patient's non-ST elevation myocardial infarction for elevated troponin and bradycardia. At present, the patient is awaiting ENT and Psychiatry evaluation for evaluation of suicidal ideation. Case referred for TCU evaluation. The patient is started on an Ativan 0.5 IV every 6 p.r.n., Colace 100 three times a day, Drisdol 50,000 weekly, DuoNeb nebulizer every 6 hours, Ecotrin 81 mg daily, folic acid 1 mg daily. The patient started on Keppra 500 IV every 12, Lipitor 40 mg daily, Lovenox 40 mg subcu daily, nicotine patch 21 mg daily, Protonix 40 mg daily, IV fluid 0.9 normal saline at 100 mL an hour, Tylenol p.o. suppository every 6 p.r.n., thiamine 100 mg p.o. daily, vitamin B12 1000 mcg IM daily, Xopenex nebulizer 0.63 mg every 6 hours which will be discontinued as the patient is already on DuoNeb nebulizer every 6 hours [id number], so Xopenex nebulizer will be discontinued. The patient is on Zofran 4 mg IV every 4 p.r.n., incentive spirometry, oxygen 2 liters. Echocardiogram pending. EEG pending. Repeat EKG ordered. The patient seen by Speech and Swallow evaluation. The patient cleared for altered GI hepatic diet. The patient has been ordered CURT stockings, elevation of the head off the bed at 30 degrees, neuro checks, seizure precaution, out of bed to chair, physical therapy, occupational therapy all ordered for the patient. At present, the patient is seen in the emergency room in bed 18. The patient is awaiting for a telemetry bed. The patient's mother was contacted today. The patient's mother, was contacted on phone number [phone] and the patient's mother was updated about the patient's condition, diagnosis, test results and all the new updates were explained to the patient's mother in layman's language. All questions concerned answered. At present, patient's prognosis overall guarded to poor due to multiple medical problems and decompensated state and noncompliance with medication. Dictated and electronically signed, not read. Stephen Thornton MD [facility]
--- NOTE | 2018-06-10 08:57 | CARD ---
APPROVED REPORT Date of service: 06/10/2018 EKG Measurement Heart [id number] <Conclusion> Marked sinus bradycardia Prolonged QT QS in V1, possible septal [place], age unknown
--- NOTE | 2018-06-10 10:12 | CP.PCM.PN ---
Subjective - Date & Time of Evaluation Date of Evaluation: 06/10/18 Time of Evaluation: 10:08 - Subjective Subjective: PGY-2 medicine progress note for Dr Thornton Overnight patient refused angio cath - he was agitated and cursed at staff - he also refused to be washed and refused TEDS stockings this morning. Patient was not cooperative with exam when I saw him this morning. He refused to answer questions. Objective - Vital Signs/Intake and Output Vital Signs (last 24 hours): Temp Pulse Resp BP Pulse Ox 98 F 43 L 19 124/62 98 06/10/18 05:55 06/10/18 05:55 06/10/18 05:55 06/10/18 05:55 06/10/18 05:55 Intake and Output: 06/10/18 06/10/18 06:59 18:59 Intake Total 200 Output Total 1000 Balance -800 - Medications Medications: Current Medications Acetaminophen (Tylenol 325mg Tab) 650 mg PO Q6 PRN PRN Reason: TEMP>=99.5F Acetaminophen (Tylenol 650 Mg Supp) 650 mg RC Q6H PRN PRN Reason: TEMP>=99.5F Acetaminophen (Tylenol 325mg Tab) 650 mg PO Q6 PRN PRN Reason: TEMP>=99.5F Acetaminophen (Tylenol 650 Mg Supp) 650 mg RC Q6H PRN PRN Reason: TEMP>=99.5F Albuterol/Ipratropium (Duoneb 3 Mg/0.5 Mg (3 Ml) Ud) 3 ml IH [id number] [facility] Last Admin: 06/10/18 07:22 Dose: 3 ml Aspirin (Ecotrin) 81 mg PO DAILY [facility] Last Admin: 06/09/18 13:47 Dose: Not Given Atorvastatin Calcium (Lipitor) 40 mg PO DIN [facility] Last Admin: 06/09/18 17:08 Dose: Not Given Cyanocobalamin (Vitamin B12 1000 Mcg/Ml Inj) 1,000 mcg IM DAILY [facility] Stop: 06/18/18 10:01 Last Admin: 06/09/18 12:23 Dose: 1,000 mcg Docusate Sodium (Colace) 100 mg PO TID [facility] Last Admin: 06/09/18 17:56 Dose: Not Given Enoxaparin Sodium (Lovenox) 40 mg SC DAILY [facility]; Protocol Last Admin: 09/25/18 10:11 Dose: 40 mg Ergocalciferol (Drisdol 50,000 Intl Units Cap) 1 cap PO Q7D [facility] Last Admin: 06/08/18 19:46 Dose: Not Given Folic Acid (Folic Acid) 1 mg PO DAILY [facility] Last Admin: 06/09/18 10:10 Dose: Not Given Sodium Chloride (Sodium Chloride 0.9%) 1,000 mls @ 100 mls/hr IV .Q10H [facility] Last Admin: 06/10/18 06:22 Dose: 100 mls/hr Levetiracetam (Keppra 500mg Ivpb) 500 mg in 100 mls @ 200 mls/hr IVPB Q12 [facility] Last Admin: 06/09/18 21:25 Dose: 200 mls/hr Potassium Chloride (Potassium Chloride 20 Meq/100 Ml) 20 meq in 100 mls @ 50 mls/hr IVPB Q2H [facility] Stop: 06/10/18 12:29 Lorazepam (Ativan) 0.5 mg IVP Q6H PRN; Protocol PRN Reason: Anxiety Nicotine (Nicoderm Cq) 1 patch TD DAILY [facility] Last Admin: 06/09/18 12:23 Dose: 1 patch Ondansetron HCl (Zofran Inj) 4 mg IVP Q4H PRN PRN Reason: Nausea/Vomiting Pantoprazole Sodium (Protonix Ec Tab) 40 mg PO 0600 [facility] Last Admin: 06/10/18 06:21 Dose: 40 mg Thiamine HCl (Vitamin B1 Tab) 100 mg PO DAILY [facility] Last Admin: 06/09/18 10:17 Dose: Not Given - Labs Labs: 06/10/18 06:00 06/10/18 06:00 PT 13.0 SECONDS (9.4-12.5) H 06/08/18 18:19 INR 1.14 06/08/18 18:19 APTT 34.3 Seconds (25.1-36.5) 06/08/18 18:19 - Additional Findings Additional findings: - Constitutional Appears: Unkempt, Older Than Stated Age, Chronically Ill - Head Exam Head Exam: ATRAUMATIC, NORMAL INSPECTION - Eye Exam Eye Exam: EOMI, Normal appearance, PERRL - ENT Exam ENT Exam: Mucous Membranes Dry - Neck Exam Neck exam: Positive for: Normal Inspection. Negative for: Thyromegaly - Respiratory Exam Respiratory Exam: Clear to Auscultation Bilateral, NORMAL BREATHING PATTERN. absent: Rales, Rhonchi, Wheezes - Cardiovascular Exam Cardiovascular Exam: REGULAR RHYTHM, +S1, +S2. absent: Tachycardia, JVD, Systolic Murmur - GI/Abdominal Exam GI & Abdominal Exam: Normal Bowel Sounds. absent: Tenderness - Extremities Exam Extremities exam: Positive for: normal inspection - Neurological Exam Neurological exam: Alert Additional comments: patient not cooperative with neuro exam - Psychiatric Exam Psychiatric exam: Flat Affect - Skin Skin Exam: Normal Color, Warm Additional comments: tattoo's all over body Assessment and Plan - Assessment and Plan (Free Text) Plan: Mr Chambers is a 50-year-old man with a past medical history of alcohol use disorder, history of seizure disorder, Hepatitis C, who was transported by EMS to the Emergency Department for seizure activity: Seizure Disorder -Likely due to home medication non-compliance as phenytoin level was subtherapeutic -Dilantin 1000mg ivp given in ED -Consult neurology, Dr Rolo Perry * Agrees seizure due to med non-compliance; Started him on keppra -CK 632 on admission, downtrending -Home dose is dilantin 200mg po tid, dilantin level was checked and was subtherapeutic -Keppra 500mg ivpb 500mg q12h -F/U EEG -NPO, seizure precautions, urinary cath NSTEMI -Troponin 0.19 -> 0.18 -Consult sales and in home delivery specialist, Dr Reynoso * Need to rule out PE as cause of his NSTEMI (however patient ruled out his angio cath) * Anticoagulation inappropriate given his seizure disorder * Telemetry was discontinued 06/10 -F/U echo -Aspirin 81mg po qd -Atorvastatin 40mg po din Nasal Fracture -10/17 to fall; No active bleeding -Consult otolaryngology, Dr Garcia * No reduction necessary at this time * Patient should be re-evaluated by ENT in 2 weeks for possible treatment if necessary at that time -CT maxillofacial w/o contrast: * Bilateral nasal bone fractures, minimally displaced to the right. No other calvarial fracture. -CT head w/o contrast: * Bifrontal scalp swelling. No calvarial fracture. No acute intracranial pa thology. Age-related changes. No significant interval change. Suspect Suicidal Ideations -Consult Psychiatry, Dr Hernandez COPD -Saturating well on room air -Levalbuterol 0.63mg IH q6h Alcohol Use Disorder -Vitamin B12 1000mcg IM qd -Folic Acid 1mg po qd -Thiamine 100mg po qd Tobacco Use Disorder -Nicotine 21mg/24hr 1 patch td qd Agitation/Anxiety -Ativan 0.5mg ivp q6h prn for seizure activity/agitation/anxiety PPX -Lovenox 40mg sc qd -Protonix 40mg po qd -OT/PT/ST
[2018-06-10] MEDS: levETIRAcetam 500mg IVPB 500 MG/100 ML BAG IVPB SCH ×2 (11:01→21:42)
[2018-06-10] MEDS: Enoxaparin 40 mg Syringe SC SCH (11:01)
--- NOTE | 2018-06-10 16:12 | PN ---
DATE: 06/10/2018 SUBJECTIVE: The patient is seen lying in the bed in room 272, bed 1. The patient is totally awake today, alert, awake, responsive, follows command. Moves upper and lower extremity without assistance. Overnight nurse's notes were reviewed. The patient was noted by the nurses to be more awake. The patient had episodes of getting rude and agitated. The patient was seen by the speech and swallow evaluation. The patient was cleared to start diet. PHYSICAL EXAMINATION: VITAL SIGNS: T-max 98.4, heart rate 56. Telemetry shows sinus bradycardia. Blood pressure 117/73, 108/72, 124/62; respirations 18-19; O2 sat 100%. GENERAL: The patient is seen lying in the bed. HEENT: Head examination normocephalic, atraumatic. HEENT examination shows pinkish conjunctivae. Anicteric sclerae. Overgrown moody and scalp hair. Poor personal hygiene. No neck rigidity. Positive craniotomy surgical scar noted. CHEST: Kyphosis. LUNGS: Shows upper lung field rhonchi anteriorly. CARDIOVASCULAR: S1 and S2. Regular rhythm. Questionable soft systolic murmur, left sternal border, right second intercostal space, left second intercostal space. ABDOMEN: Soft. Positive bowel sound. GENITALIA: Male. RECTAL: Deferred. EXTREMITY: Shows pitting edema. No calf tenderness. No Homans' sign. NEUROLOGICAL: The patient is alert, awake, oriented x1-2. The patient is able to follow command. Moves upper and lower extremity without assistance. Gait examination is not tested. MUSCULOSKELETAL: Shows a body mass index of 20. DIAGNOSTICS: 06/10/2018, WBC 4.8, hemoglobin and hematocrit 11 and 33.1, platelet 246. Chemistry significant for potassium of 3.3. CPK down to 488. Troponin is 0.03 from peak troponin of 0.19. Urinalysis, urine drug screen, RPR noted. Urine cultures negative. The patient's EKG shows sinus bradycardia. IMPRESSION AND PLAN: 1. Recurrent breakthrough seizures versus alcohol withdrawal seizure. 2. Questionable [id number] myocardial infarction with elevated troponin. 3. History of alcohol, nicotine and polysubstance abuse and dependence. 4. History of craniotomy. 5. Status post fall. 6. Normocytic anemia with granulocytosis. 7. Hypokalemia. 8. Hypomagnesemia. 9. Questionable mild rhabdomyolysis with elevated CPK. 10. Microscopic hematuria. 11. History of polysubstance abuse with urine drug screen positive for cannabinoids. 12. Sinus bradycardia. 13. Questionable age indeterminate septal myocardial infarction. 14. History of incomplete right bundle-branch block. 15. Deconditioning. 16. Gait dysfunction. 17. Poor personal hygiene. 18. History of chronic alcohol abuse. 19. Alcohol withdrawal seizure. 20. History of hepatitis C. 21. Nondisplaced nasal bone fracture. 22. Hypotension. 23. Bradycardia. 24. Constipation. 25. Hypovitaminosis D. 26. Vitamin B12 deficiency. 27. Hyperlipidemia. 28. Nicotine dependence. 29. Vitamin B12 deficiency. 1. Recurrent seizures. 2. History of nicotine, alcohol and drug abuse and dependence. 3. Possible alcohol withdrawal seizure. 4. History of traumatic brain injury. 5. History of craniotomy and traumatic brain injury. 6. Possible breakthrough seizure secondary to noncompliance with antiepileptic therapy. 7. Hypotension. 8. Bradycardia. 9. Normocytic anemia. 10. Granulocytosis. 11. Status post fall. 12. Facial contusion and bilateral nasal bone fracture, nondisplaced. 13. Hypomagnesemia. 14. Acute non-ST elevation myocardial infarction with elevated troponin. 15. Mild rhabdomyolysis. 16. Microscopic hematuria. 17. History of active alcohol, nicotine and drug abuse with urine drug screen positive for cannabinoids. 18. Bilateral nasal bone fracture minimally displaced to the right. 19. Bifrontal scalp swelling. 20. Biparietal craniotomy. 21. Cerebral cortical atrophy of the brain with chronic microvascular ischemic disease of the brain. 21. Deconditioning. 22. Gait dysfunction. 23. History of hepatitis C. 1. Recurrent witnessed seizures secondary to noncompliance with antiepileptic drugs. 2. Questionable suicidal ideation. 3. Postictal state. 4. Bradycardia. 5. Hypertension. 6. History of history of traumatic brain injury, history of multiple bilateral craniotomy. 7. Anemia. 8. Granulocytosis. 9. Hypomagnesemia. 10. Microscopic hematuria. 11. History of active nicotine, alcohol and drug use and dependence. 12. Facial contusion secondary to fall. 13. Bilateral nasal bone fracture with displacement to the right. 14. Chronic microvascular ischemic disease of the brain. 15. Bifrontal scalp swelling. 16. Gait dysfunction and recurrent falls. Plan at this time, we are awaiting for the patient's echocardiogram report. Which is still pending. The patient's management discussed with Cardiology. No recommendations for intervention or further cardiac diagnostic therapeutic testing. Repeat labs ordered for the morning. Current consultation, Neurology, ENT, Cardiology and Psychiatry has been ordered for evaluation for possible suicidal ideation. CURRENT MEDICATIONS: Ativan 0.5 mg IV every 6 p.r.n., Colace 100 mg three times a day, Drisdol 50,000 weekly, DuoNeb nebulizer every 6 hours, Ecotrin 81 mg daily, folic acid 1 mg daily, Keppra 500 mg IV every 12, Lipitor 40 mg daily, Lovenox 40 mg subcu daily, nicotine patch 21 mg daily. The patient has been supplemented with IV and p.o. potassium. The patient is on Protonix 40 mg daily, IV fluid 0.9 normal saline at 100 mL an hour, Tylenol 650 every 6 p.r.n., thiamine 100 mg daily, vitamin B12 at 1000 mcg IM daily, Zofran 4 mg IV every 4 hours p.r.n. The patient has been ordered oxygen, incentive spirometry. Repeat EKG. EEG is pending. The patient is ordered CURT stockings, out of bed, seizure precaution, neuro checks. The patient is ordered SCDs, occupational therapy, physical therapy all ordered. The patient is seen by Fire Management Technician. The patient is still to be seen by the physical therapist. At present, the patient will be continued on the above therapeutic intervention. We are awaiting further evaluation by Psychiatry regarding the patient's suicidal ideation. Dictated and electronically signed, not read. Stephen Thornton MD [facility]
--- NOTE | 2018-06-10 17:29 | EEG ---
Copied To: Rolo Perry MD Attending MD: Rolo Perry MD DATE: 06/10/2018 CONDITION OF THIS RECORDING: Drowsy. DIAGNOSIS: Seizures. MEDICATION: Keppra. INTERPRETATION: This is a 16-channel international recording. The background activity was composed of 6-7 cycles per second. There was a small amount of beta activity of 16-20 cycles per second seen in this tracing. There was increased amount of theta activity of 5-7 cycles per second seen in this tracing. Drowsiness was characterized by mixed beta and theta activities. The sleep was characterized by vertex transient waves, sleep spindles and bilateral slowing. Photic stimulation showed no change in the tracing. No paroxysmal activities were noted in this recording. CONCLUSIONS: This is an abnormal electroencephalogram due to presence of mild diffuse slowing throughout the recording consistent with mild bilateral cerebral dysfunction. No evidence of any epileptiform activity. Please clinically correlate. Rolo Perry MD
--- NOTE | 2018-06-10 17:46 | PN ---
DATE: 06/10/2018 NEUROLOGY FOLLOWUP CHIEF COMPLAINT: Followup for seizures. SUBJECTIVE: No seizures overnight. He was agitated and was being rude with the staff. He is cleared by Speech and Swallow. His EEG showed mild bilateral cerebral dysfunction. No evidence of any epileptiform activities. He is currently on Keppra IV every 12 hours which can be converted to p.o. eventually. REVIEW OF SYSTEMS: Fourteen-point review of systems is negative except as per the HPI. PAST MEDICAL HISTORY: History of chronic EtOH abuse, history of seizure disorder for many years on Dilantin, noncompliant, hepatitis C. ALLERGIES: ASPIRIN. FAMILY HISTORY: Noncontributory. MEDICATIONS: Reviewed by nurse per reconciliation sheet. LABORATORY DATA: Sodium is 140, potassium 2.3, chloride 108, carbon dioxide of 25. BUN of 7, creatinine 0.6, random glucose of 76. PHYSICAL EXAMINATION: VITAL SIGNS: Temperature 98.4, pulse rate 56, blood pressure 108/72, respirations 18, oxygen saturation 100% by room air. GENERAL: The patient is sitting up in bed, in no acute distress. HEENT: Atraumatic, normocephalic. PERRLA. Extraocular muscles intact. NECK: Supple. No JVD, no adenopathy noted. LUNGS: Clear to auscultation. No adventitious sounds. HEART: S1, S2. Normal rate and rhythm. No murmurs, rubs, or gallops. ABDOMEN: Soft, nontender, nondistended. Bowel sounds are present. EXTREMITIES: No clubbing. No cyanosis. Peripheral pulses 2+ felt bilaterally. NEUROLOGIC: The patient is alert and oriented to person, place, month, and year. Recall after 5 minutes is 0/3. Poor attention span. Slow thought process. Cranial nerves II through XII intact. Motor exam: Moves all extremities equally. No pronator drift seen. Sensory exam: Decreased light touch and pinprick up to the calves bilaterally. Decreased vibration of the toes. DTRs are 2+ throughout and 1 at both knees and ankles. Coordination: Grcevh-sh-mnum intact. No dysmetria noted, but he has marked tremors of the extremities from alcohol withdrawal. IMPRESSION: Breakthrough seizure secondary to alcohol withdrawal seizures. CAT scan of the head showed no acute intracranial abnormality. EEG shows mild bilateral cerebral dysfunction. No evidence of any epileptiform activities. At this time, we recommend compliance with seizure medications. Keep on Keppra 500 mg IV every 12 hours, that can be converted to p.o. b.i.d. CIWA protocol and psychiatric management for underlying alcohol cessation and bizarre behavior. Once again, thank you for this followup. Rolo Perry MD
[2018-06-10] MEDS: Divalproex 125 mg EC Sprinkle Cap PO SCH (18:21)
--- NOTE | 2018-06-10 18:55 | CON ---
DATE: 06/10/2018 HISTORY OF PRESENT ILLNESS: In short, the patient is a 52-year-old male with reported history of seizures, history of alcohol use disorder. The patient has multiple medical issues including hepatitis C. The patient was admitted on the medical site for evaluation of altered mental status. The patient also had seizures possibly at home and also in the hospital. Psych consult was called for evaluation of possible suicidal ideation and bizarre presentation. The patient was seen and examined, discussed with the medical staff as well as resident. The patient presented to be disheveled. Long greasy hair, long moody. The patient has very concrete thought process. He was answering for the questions yes or no only. The patient has echolalia. The patient was repeating the same question that was asked. The patient presented with some psychomotor retardation. This process description writer reviewed previous history. The patient was admitted to psychiatric inpatient unit in 2014, for alcohol dementia. The patient stayed there for 2 weeks. The patient was discharged on the following medications, Depakote as well as Risperdal, Dilantin, and aspirin. PHYSICAL EXAMINATION: VITAL SIGNS: This process description writer reviewed vital signs. Temperature 98.4, pulse is 56, blood pressure 108/72, respirations 18, and oxygen saturation is 100%. MEDICATIONS: Reviewed. The patient is on Tylenol, aspirin, Lipitor, B12. This process description writer will initiate Depakote Sprinkles and Colace. The patient is on Lovenox, Drisdol, and folic acid. The patient is on Keppra. Ativan 0.5 mg IV push every 6 hours p.r.n. for anxiety. The patient is on Nicoderm, Zofran, and Protonix. This process description writer will also initiate Risperdal 0.5 mg twice a day. The patient is on sodium chloride and thiamine. LABORATORY DATA: Reviewed. Hemoglobin and hematocrit 10.9 and 33.1. Chemistry reviewed. Troponin was elevated. Toxicology positive for cannabis. Serology RPR is negative. Microbiology reviewed. This process description writer reviewed notes. The patient was seen by neurologist, also technical assistance consultant. The patient also had nasal fracture. The patient had NSTEMI, seizure disorder. The patient also has COPD, alcohol use disorder, anxiety. MENTAL STATUS EXAMINATION: The patient presented to be with some concrete thought process, confabulates. The patient also presented to be echolalic. Mood described as depressed. Affect flat. Thought process: [place]. Thought content: The patient verbalized suicidal ideation to the medical team, but not to this process description writer. Insight and judgment seem to be very limited. Impulses are unpredictable. IMPRESSION: As per history, the patient has alcohol-induced dementia, rule out major depressive disorder. As per history, the patient has anxiety disorder. One previous admission in the past. PLAN: Depakote was started. Ativan was started by medical team. This process description writer wanted to initiate the antipsychotic medication, but considering the fact that the patient had NSTEMI, all antipsychotics could give QTC prolongation, we will observe further. We will follow up and advise accordingly. Thank you very much for letting me participate in care of your patient. Mary Pearson MD [facility]
[2018-06-10 19:38] LABS: BASO # 0.03 K/mm3 (0.0-2.0); BASO % 0.6 % (0.0-3.0); EOS # 0.2 (0.0-0.7); EOS % 3.2 % (1.5-5.0); GRAN # 2.44 (1.4-6.5); GRAN % 45.4 % (50.0-68.0); LYMPH % 38.1 % (22.0-35.0); MEAN CELL VOLUME 96.2 fl (80.0-105.0); MEAN CORPUSCULAR HEMOGLOBIN 32.4 pg (25.0-35.0); MEAN CORPUSCULAR HGB CONC 33.6 g/dl (31.0-37.0); MEAN PLATELET VOLUME 8.5 fl (7.0-11.0); MONO # 0.7 (0.1-0.6); MONO % 12.7 % (1.0-6.0); RBC 3.4 10^6/uL (3.5-6.1); RED CELL DISTRIBUTION WIDTH 13.1 % (11.5-14.5); WHITE BLOOD COUNT 5.4 10^3/ul (4.5-11.0)
[2018-06-10 21:24] LABS: BASO # 0.02 K/mm3 (0.0-2.0); BASO % 0.4 % (0.0-3.0); EOS # 0.2 (0.0-0.7); GRAN # 2.91 (1.4-6.5); GRAN % 51.7 % (50.0-68.0); LYMPH # 2.1 (1.2-3.4); LYMPH % 36.4 % (22.0-35.0); MEAN CELL VOLUME 96.1 fl (80.0-105.0); MEAN CORPUSCULAR HEMOGLOBIN 32.2 pg (25.0-35.0); MEAN CORPUSCULAR HGB CONC 33.4 g/dl (31.0-37.0); MEAN PLATELET VOLUME 8.4 fl (7.0-11.0); MONO # 0.5 (0.1-0.6); MONO % 8.5 % (1.0-6.0); RBC 3.11 10^6/uL (3.5-6.1); RED CELL DISTRIBUTION WIDTH 13.1 % (11.5-14.5); WHITE BLOOD COUNT 5.6 10^3/ul (4.5-11.0)
--- NOTE | 2018-06-11 01:12 | CP.PCM.PN ---
Subjective - Date & Time of Evaluation Date of Evaluation: 06/11/18 Time of Evaluation: 01:09 - Subjective Subjective: vice president of development asked to co-sign orders. Patient had hematuria. Medical record was reviewed. Patient was seen by residents. I saw patient who has no complaints now. VSS. Not in acute distress. Orders were co-signed. Objective - Vital Signs/Intake and Output Vital Signs (last 24 hours): Temp Pulse Resp BP Pulse Ox 98.4 F 56 L 18 108/72 100 06/10/18 14:00 06/10/18 14:00 06/10/18 14:00 06/10/18 14:00 06/10/18 14:00 Intake and Output: 06/10/18 06/11/18 18:59 06:59 Intake Total 720 Output Total 800 Balance -80 - Medications Medications: Current Medications Acetaminophen (Tylenol 325mg Tab) 650 mg PO Q6 PRN PRN Reason: TEMP>=99.5F Acetaminophen (Tylenol 650 Mg Supp) 650 mg RC Q6H PRN PRN Reason: TEMP>=99.5F Acetaminophen (Tylenol 325mg Tab) 650 mg PO Q6 PRN PRN Reason: TEMP>=99.5F Acetaminophen (Tylenol 650 Mg Supp) 650 mg RC Q6H PRN PRN Reason: TEMP>=99.5F Albuterol/Ipratropium (Duoneb 3 Mg/0.5 Mg (3 Ml) Ud) 3 ml IH [id number] [facility] Last Admin: 06/10/18 20:11 Dose: Not Given Atorvastatin Calcium (Lipitor) 40 mg PO DIN [facility] Last Admin: 06/10/18 17:55 Dose: 40 mg Cyanocobalamin (Vitamin B12 1000 Mcg/Ml Inj) 1,000 mcg IM DAILY [facility] Stop: 06/18/18 10:01 Last Admin: 06/10/18 11:03 Dose: 1,000 mcg Divalproex Sodium (Depakote Sprinkles) 125 mg PO BID [facility]; Protocol Last Admin: 06/10/18 18:21 Dose: 125 mg Docusate Sodium (Colace) 100 mg PO TID [facility] Last Admin: 06/10/18 17:55 Dose: 100 mg Enoxaparin Sodium (Lovenox) 40 mg SC DAILY [facility]; Protocol Last Admin: 06/10/18 11:01 Dose: 40 mg Ergocalciferol (Drisdol 50,000 Intl Units Cap) 1 cap PO Q7D [facility] Last Admin: 06/08/18 19:46 Dose: Not Given Folic Acid (Folic Acid) 1 mg PO DAILY [facility] Last Admin: 06/10/18 11:00 Dose: 1 mg Sodium Chloride (Sodium Chloride 0.9%) 1,000 mls @ 100 mls/hr IV .Q10H [facility] Last Admin: 06/10/18 18:06 Dose: 100 mls/hr Levetiracetam (Keppra 500mg Ivpb) 500 mg in 100 mls @ 200 mls/hr IVPB Q12 [facility] Last Admin: 06/10/18 21:42 Dose: 200 mls/hr Lorazepam (Ativan) 0.5 mg IVP Q6H PRN; Protocol PRN Reason: Anxiety Last Admin: 06/11/18 00:34 Dose: 0.5 mg Nicotine (Nicoderm Cq) 1 patch TD DAILY [facility] Last Admin: 06/10/18 11:01 Dose: 1 patch Ondansetron HCl (Zofran Inj) 4 mg IVP Q4H PRN PRN Reason: Nausea/Vomiting Pantoprazole Sodium (Protonix Ec Tab) 40 mg PO 0600 [facility] Last Admin: 06/10/18 06:21 Dose: 40 mg Tamsulosin HCl (Flomax) 0.4 mg PO DAILY [facility] Thiamine HCl (Vitamin B1 Tab) 100 mg PO DAILY [facility] Last Admin: 06/10/18 11:05 Dose: 100 mg - Labs Labs: 06/10/18 21:20 06/10/18 06:00 PT 13.0 SECONDS (9.4-12.5) H 06/08/18 18:19 INR 1.14 06/08/18 18:19 APTT 34.3 Seconds (25.1-36.5) 06/08/18 18:19
[2018-06-11 01:18] LABS: BASO # 0.03 K/mm3 (0.0-2.0); BASO % 0.5 % (0.0-3.0); EOS # 0.2 (0.0-0.7); EOS % 2.9 % (1.5-5.0); GRAN # 3.03 (1.4-6.5); GRAN % 54.9 % (50.0-68.0); HEMOGLOBIN 9.4 g/dL (14.0-18.0); LYMPH # 1.9 (1.2-3.4); LYMPH % 33.6 % (22.0-35.0); MEAN CELL VOLUME 95.2 fl (80.0-105.0); MEAN CORPUSCULAR HEMOGLOBIN 32.2 pg (25.0-35.0); MEAN CORPUSCULAR HGB CONC 33.8 g/dl (31.0-37.0); MONO # 0.5 (0.1-0.6); MONO % 8.1 % (1.0-6.0); RBC 2.92 10^6/uL (3.5-6.1); RED CELL DISTRIBUTION WIDTH 13.1 % (11.5-14.5); WHITE BLOOD COUNT 5.5 10^3/ul (4.5-11.0)
[2018-06-11] MEDS: Albuterol-Ipratrop 3 mg / 0.5 (3 ml) UD IH SCH ×4 (02:50→19:33)
--- NOTE | 2018-06-11 04:17 | CP.PCM.PN ---
Subjective - Date & Time of Evaluation Date of Evaluation: 06/11/18 Time of Evaluation: 03:00 Objective - Vital Signs/Intake and Output Vital Signs (last 24 hours): Temp Pulse Resp BP Pulse Ox 98.4 F 56 L 18 108/72 100 06/10/18 14:00 06/10/18 14:00 06/10/18 14:00 06/10/18 14:00 06/10/18 14:00 Intake and Output: 06/10/18 06/11/18 18:59 06:59 Intake Total 720 Output Total 800 Balance -80 - Medications Medications: Current Medications Acetaminophen (Tylenol 325mg Tab) 650 mg PO Q6 PRN PRN Reason: TEMP>=99.5F Acetaminophen (Tylenol 650 Mg Supp) 650 mg RC Q6H PRN PRN Reason: TEMP>=99.5F Acetaminophen (Tylenol 325mg Tab) 650 mg PO Q6 PRN PRN Reason: TEMP>=99.5F Acetaminophen (Tylenol 650 Mg Supp) 650 mg RC Q6H PRN PRN Reason: TEMP>=99.5F Albuterol/Ipratropium (Duoneb 3 Mg/0.5 Mg (3 Ml) Ud) 3 ml IH [id number] [facility] Last Admin: 06/10/18 20:11 Dose: Not Given Atorvastatin Calcium (Lipitor) 40 mg PO DIN [facility] Last Admin: 06/10/18 17:55 Dose: 40 mg Cyanocobalamin (Vitamin B12 1000 Mcg/Ml Inj) 1,000 mcg IM DAILY [facility] Stop: 06/18/18 10:01 Last Admin: 06/10/18 11:03 Dose: 1,000 mcg Divalproex Sodium (Depakote Sprinkles) 125 mg PO BID [facility]; Protocol Last Admin: 06/10/18 18:21 Dose: 125 mg Docusate Sodium (Colace) 100 mg PO TID [facility] Last Admin: 06/10/18 17:55 Dose: 100 mg Enoxaparin Sodium (Lovenox) 40 mg SC DAILY [facility]; Protocol Last Admin: 06/10/18 11:01 Dose: 40 mg Ergocalciferol (Drisdol 50,000 Intl Units Cap) 1 cap PO Q7D [facility] Last Admin: 06/08/18 19:46 Dose: Not Given Folic Acid (Folic Acid) 1 mg PO DAILY [facility] Last Admin: 06/10/18 11:00 Dose: 1 mg Sodium Chloride (Sodium Chloride 0.9%) 1,000 mls @ 100 mls/hr IV .Q10H [facility] Last Admin: 06/10/18 18:06 Dose: 100 mls/hr Levetiracetam (Keppra 500mg Ivpb) 500 mg in 100 mls @ 200 mls/hr IVPB Q12 [facility] Last Admin: 06/10/18 21:42 Dose: 200 mls/hr Lorazepam (Ativan) 0.5 mg IVP Q6H PRN; Protocol PRN Reason: Anxiety Last Admin: 06/11/18 00:34 Dose: 0.5 mg Nicotine (Nicoderm Cq) 1 patch TD DAILY [facility] Last Admin: 06/10/18 11:01 Dose: 1 patch Ondansetron HCl (Zofran Inj) 4 mg IVP Q4H PRN PRN Reason: Nausea/Vomiting Pantoprazole Sodium (Protonix Ec Tab) 40 mg PO 0600 [facility] Last Admin: 06/10/18 06:21 Dose: 40 mg Tamsulosin HCl (Flomax) 0.4 mg PO DAILY [facility] Thiamine HCl (Vitamin B1 Tab) 100 mg PO DAILY [facility] Last Admin: 06/10/18 11:05 Dose: 100 mg - Labs Labs: 06/11/18 01:10 06/10/18 06:00 PT 13.0 SECONDS (9.4-12.5) H 06/08/18 18:19 INR 1.14 06/08/18 18:19 APTT 34.3 Seconds (25.1-36.5) 06/08/18 18:19
--- NOTE | 2018-06-11 04:39 | CP.PCM.PN ---
Subjective - Date & Time of Evaluation Date of Evaluation: 06/10/18 Time of Evaluation: 23:00 - Subjective Subjective: NIGHT FLOAT PROGRESS NOTE FOR DR. KHRIS Becker D.O. PGY-1 CC: Hematuria S: Resident was paged from nursing staff regarding patient with hematuria after pt had pulled out his echevarria tube. Pt was seen and examined at bedside. He was found to have ~20cc blood around urethral meatus and diaper and ~10cc joselyn blood in toilet bowl. Pt denied pain in the area. He denied fevers, chills, headache, dizziness, chest pain, palpitations, shortness of breath, nausea, vomiting, diarrhea, dysuria. O: VS stable Gen: NAD HEENT: moist mucosal membranes, EOMI CV: RRR, no m/r/g Chest: CTA b/l ABD: soft, non-tender, no suprapubic tenderness : No external urethral trauma noted. Echevarria catheter removed. Non-clotted blood noted around urethral meatus A: Hematuria secondary to urethral trauma P: Assessment and plan discussed with Dr. Liu over the phone. Instructions include: Encourage po hydration and encourage urination. Echevarria to remain out. Start 0.4mg flomax. Monitor urine output. Inform resident if pt retaining urine. Place external catheter if patient retaining urine Obtain urine cultures. Obtain serum PSA. Trend CBC in am Objective - Vital Signs/Intake and Output Vital Signs (last 24 hours): Temp Pulse Resp BP Pulse Ox 98.4 F 56 L 18 108/72 100 06/10/18 14:00 06/10/18 14:00 06/10/18 14:00 06/10/18 14:00 06/10/18 14:00 Intake and Output: 06/10/18 06/11/18 18:59 06:59 Intake Total 720 Output Total 800 Balance -80 - Medications Medications: Current Medications Acetaminophen (Tylenol 325mg Tab) 650 mg PO Q6 PRN PRN Reason: TEMP>=99.5F Acetaminophen (Tylenol 650 Mg Supp) 650 mg RC Q6H PRN PRN Reason: TEMP>=99.5F Acetaminophen (Tylenol 325mg Tab) 650 mg PO Q6 PRN PRN Reason: TEMP>=99.5F Acetaminophen (Tylenol 650 Mg Supp) 650 mg RC Q6H PRN PRN Reason: TEMP>=99.5F Albuterol/Ipratropium (Duoneb 3 Mg/0.5 Mg (3 Ml) Ud) 3 ml IH [id number] [facility] Last Admin: 06/10/18 20:11 Dose: Not Given Atorvastatin Calcium (Lipitor) 40 mg PO DIN [facility] Last Admin: 06/10/18 17:55 Dose: 40 mg Cyanocobalamin (Vitamin B12 1000 Mcg/Ml Inj) 1,000 mcg IM DAILY [facility] Stop: 06/18/18 10:01 Last Admin: 06/10/18 11:03 Dose: 1,000 mcg Divalproex Sodium (Depakote Sprinkles) 125 mg PO BID [facility]; Protocol Last Admin: 06/10/18 18:21 Dose: 125 mg Docusate Sodium (Colace) 100 mg PO TID [facility] Last Admin: 06/10/18 17:55 Dose: 100 mg Enoxaparin Sodium (Lovenox) 40 mg SC DAILY [facility]; Protocol Last Admin: 06/10/18 11:01 Dose: 40 mg Ergocalciferol (Drisdol 50,000 Intl Units Cap) 1 cap PO Q7D [facility] Last Admin: 06/08/18 19:46 Dose: Not Given Folic Acid (Folic Acid) 1 mg PO DAILY [facility] Last Admin: 06/10/18 11:00 Dose: 1 mg Sodium Chloride (Sodium Chloride 0.9%) 1,000 mls @ 100 mls/hr IV .Q10H [facility] Last Admin: 06/10/18 18:06 Dose: 100 mls/hr Levetiracetam (Keppra 500mg Ivpb) 500 mg in 100 mls @ 200 mls/hr IVPB Q12 [facility] Last Admin: 06/10/18 21:42 Dose: 200 mls/hr Lorazepam (Ativan) 0.5 mg IVP Q6H PRN; Protocol PRN Reason: Anxiety Last Admin: 06/11/18 00:34 Dose: 0.5 mg Nicotine (Nicoderm Cq) 1 patch TD DAILY [facility] Last Admin: 06/10/18 11:01 Dose: 1 patch Ondansetron HCl (Zofran Inj) 4 mg IVP Q4H PRN PRN Reason: Nausea/Vomiting Pantoprazole Sodium (Protonix Ec Tab) 40 mg PO 0600 [facility] Last Admin: 06/10/18 06:21 Dose: 40 mg Tamsulosin HCl (Flomax) 0.4 mg PO DAILY [facility] Thiamine HCl (Vitamin B1 Tab) 100 mg PO DAILY [facility] Last Admin: 06/10/18 11:05 Dose: 100 mg - Labs Labs: 06/11/18 01:10 06/10/18 06:00 PT 13.0 SECONDS (9.4-12.5) H 06/08/18 18:19 INR 1.14 06/08/18 18:19 APTT 34.3 Seconds (25.1-36.5) 06/08/18 18:19
[2018-06-11] MEDS: Pantoprazole 40 mg EC Tab PO SCH (06:35)
[2018-06-11 07:26] LABS: BASO # 0.04 K/mm3 (0.0-2.0); BASO % 0.7 % (0.0-3.0); EOS # 0.2 (0.0-0.7); EOS % 3.6 % (1.5-5.0); GRAN # 3.04 (1.4-6.5); GRAN % 54.3 % (50.0-68.0); HEMOGLOBIN 8.8 g/dL (14.0-18.0); LYMPH # 1.9 (1.2-3.4); LYMPH % 33.2 % (22.0-35.0); MEAN CELL VOLUME 95.3 fl (80.0-105.0); MEAN CORPUSCULAR HEMOGLOBIN 31.9 pg (25.0-35.0); MEAN CORPUSCULAR HGB CONC 33.5 g/dl (31.0-37.0); MEAN PLATELET VOLUME 8.6 fl (7.0-11.0); MONO # 0.5 (0.1-0.6); MONO % 8.2 % (1.0-6.0); RBC 2.76 10^6/uL (3.5-6.1); RED CELL DISTRIBUTION WIDTH 13.2 % (11.5-14.5); WHITE BLOOD COUNT 5.6 10^3/ul (4.5-11.0)
[2018-06-11 07:47] LABS: TROPONIN I < 0.01 ng/mL
[2018-06-11 07:52] LABS: ALB/GLOB RATIO 1.1 (1.1-1.8); ALBUMIN 2.9 g/dL (3.0-4.8); ALT/SGPT 29 U/L (7-56); AST/SGOT 32 U/L (17-59); BILIRUBIN,DIRECT 0.1 mg/dL (0.0-0.4); BLOOD UREA NITROGEN 9 mg/dL (7-21); CALCIUM 8.4 mg/dL (8.4-10.5); GFR NON-AFRICAN AMERICAN > 60
[2018-06-11 08:08] LABS: CK-MB 1.6 ng/mL (0.0-3.6)
--- NOTE | 2018-06-11 09:33 | CARD ---
APPROVED REPORT Date of service: 06/10/2018 EXAM: Two-dimensional and M-mode echocardiogram with Doppler and color Doppler. Other Information Quality : AverageRhythm : INDICATION Non STEMI 2D DIMENSIONS Left Atrium (2D)3.9 (1.6-4.0cm)IVSd1.1 (0.7-1.1cm) LVDd5.1 (3.9-5.9cm)PWd1.0 (0.7-1.1cm) LVDs3.6 (2.5-4.0cm)FS (%) 30.4 % LVEF (%)57.0 (>50%) M-Mode DIMENSIONS Aortic Root3.00 (2.2-3.7cm)Aortic Cusp Exc.1.20 (1.5-2.0cm) Aortic Valve AoV Peak Ychsjgwd35.1cm/s Mitral Valve E/A ratio0.0 TDI E/Lateral E'0.0E/Medial E'0.0 Tricuspid Valve TR Peak [id number] [id number] Peak Gr.23mmHg [id number] LEFT VENTRICLE The left ventricle is normal size. There is normal left ventricular wall thickness. The left ventricular function is normal. The left ventricular ejection fraction is within the normal range. There is normal LV segmental wall motion. RIGHT VENTRICLE The right ventricle is normal size. ATRIA The left atrium size is normal. The right atrium size is normal. The interatrial septum is intact with no evidence for an atrial septal defect. AORTIC VALVE The aortic valve is mildly to moderately calcified. MITRAL VALVE The mitral valve is normal in structure. Mitral annular calcification is mild. TRICUSPID VALVE The tricuspid valve is normal in structure. There is trace to mild tricuspid regurgitation. GREAT VESSELS The aortic root is normal in size. PERICARDIAL EFFUSION There is no pericardial effusion. <Conclusion> The left ventricle is normal size. There is normal left ventricular wall thickness. The left ventricular function is normal. The aortic valve is mildly to moderately calcified. Aortic sclerosis.
[2018-06-11 10:25] LABS: URINE BILIRUBIN NEGATIVE (NEGATIVE); URINE BLOOD LARGE (NEGATIVE); URINE GLUCOSE (UA) NEGATIVE (NEGATIVE); URINE LEUKOCYTE ESTERASE TRACE Leu/uL (NEGATIVE); URINE PROTEIN TRACE mg/dL (<30 mg/dL); URINE UROBILINOGEN 0.2 E.U./dL (<1 E.U./dL)
[2018-06-11 10:32] LABS: URINE COLOR LIGHT RED (YELLOW)
[2018-06-11 10:33] LABS: URINE APPEARANCE CLOUDY (CLEAR)
[2018-06-11 10:34] LABS: URINE RBC TNTC /hpf (0-2)
[2018-06-11 10:35] LABS: URINE BACTERIA NEG (NEG)
--- NOTE | 2018-06-11 10:48 | PN ---
DATE: 06/11/2018 CARDIOLOGY FOLLOWUP SUBJECTIVE: The patient is resting comfortably. No recurrent seizures noted. PHYSICAL EXAMINATION: VITAL SIGNS: The blood pressure is 98/59, the heart rate is in the 50s. NECK: Negative JVD. LUNGS: Without rales. HEART: Reveals S1, S2. EXTREMITIES: Without edema. LABORATORY DATA: Hemoglobin is 8.8. Chemistries: BUN and creatinine are unremarkable. His troponin is down to normal. Echocardiogram shows good LV function with aortic sclerosis. IMPRESSION: 1. Recurrent seizures. 2. Good left ventricular function. 3. Aortic valve sclerosis. 4. Pulmonary hypertension. 5. History of alcoholism. 6. Chronic obstructive pulmonary disease. 8. History of hepatitis C. PLAN: Given these findings, the patient's cardiac status is stable at this time. Echocardiogram performed on this admission reveals no significant pulmonary hypertension. Javier Reynoso MD
[2018-06-11] MEDS: Enoxaparin 40 mg Syringe SC SCH (11:08)
[2018-06-11] MEDS: levETIRAcetam 500mg IVPB 500 MG/100 ML BAG IVPB SCH ×2 (11:13→21:10)
[2018-06-11] MEDS: Divalproex 125 mg EC Sprinkle Cap PO SCH ×2 (11:15→17:30)
--- NOTE | 2018-06-11 14:08 | CARD ---
APPROVED REPORT Date of service: 06/11/2018 EKG Measurement Heart [id number] <Conclusion> Marked sinus bradycardia STTW changes
--- NOTE | 2018-06-11 15:04 | CP.PCM.PN ---
Subjective - Date & Time of Evaluation Date of Evaluation: 06/11/18 Time of Evaluation: 10:00 - Subjective Subjective: PGY-[address] Thornton Overnight patient was confused - he pulled out his echevarria cath with ensuing hematuria - the nightfloat attending was called and made urologist Dr Liu aware - he appeared anxious and restless and ativan 0.5mg was given - a 1:1 was ordered. Today the patient was alert and oriented x3 however choosing to not answer my questions at times. Denied discomfort or pain. Objective - Vital Signs/Intake and Output Vital Signs (last 24 hours): Temp Pulse Resp BP Pulse Ox 97.5 F L 52 L 18 98/59 L 95 06/11/18 05:55 06/11/18 08:55 06/11/18 05:55 06/11/18 05:55 06/11/18 08:55 Intake and Output: 06/11/18 06/11/18 06:59 18:59 Intake Total 720 Output Total 2200 Balance -1480 - Medications Medications: Current Medications Acetaminophen (Tylenol 325mg Tab) 650 mg PO Q6 PRN PRN Reason: TEMP>=99.5F Acetaminophen (Tylenol 650 Mg Supp) 650 mg RC Q6H PRN PRN Reason: TEMP>=99.5F Acetaminophen (Tylenol 325mg Tab) 650 mg PO Q6 PRN PRN Reason: TEMP>=99.5F Acetaminophen (Tylenol 650 Mg Supp) 650 mg RC Q6H PRN PRN Reason: TEMP>=99.5F Albuterol/Ipratropium (Duoneb 3 Mg/0.5 Mg (3 Ml) Ud) 3 ml IH [id number] [facility] Last Admin: 06/11/18 13:07 Dose: 3 ml Atorvastatin Calcium (Lipitor) 40 mg PO DIN [facility] Last Admin: 06/10/18 17:55 Dose: 40 mg Cyanocobalamin (Vitamin B12 1000 Mcg/Ml Inj) 1,000 mcg IM DAILY [facility] Stop: 06/18/18 10:01 Last Admin: 06/11/18 11:10 Dose: 1,000 mcg Divalproex Sodium (Depakote Sprinkles) 125 mg PO BID [facility]; Protocol Last Admin: 06/11/18 11:15 Dose: 125 mg Docusate Sodium (Colace) 100 mg PO TID [facility] Last Admin: 06/11/18 14:23 Dose: 100 mg Enoxaparin Sodium (Lovenox) 40 mg SC DAILY [facility]; Protocol Last Admin: 06/11/18 11:08 Dose: 40 mg Ergocalciferol (Drisdol 50,000 Intl Units Cap) 1 cap PO Q7D [facility] Last Admin: 06/08/18 19:46 Dose: Not Given Folic Acid (Folic Acid) 1 mg PO DAILY [facility] Last Admin: 06/11/18 11:15 Dose: 1 mg Sodium Chloride (Sodium Chloride 0.9%) 1,000 mls @ 100 mls/hr IV .Q10H [facility] Last Admin: 06/10/18 18:06 Dose: 100 mls/hr Levetiracetam (Keppra 500mg Ivpb) 500 mg in 100 mls @ 200 mls/hr IVPB Q12 [facility] Last Admin: 06/11/18 11:13 Dose: 200 mls/hr Lorazepam (Ativan) 0.5 mg IVP Q6H PRN; Protocol PRN Reason: Anxiety Last Admin: 06/11/18 11:12 Dose: 0.5 mg Nicotine (Nicoderm Cq) 1 patch TD DAILY [facility] Last Admin: 06/11/18 11:11 Dose: 1 patch Ondansetron HCl (Zofran Inj) 4 mg IVP Q4H PRN PRN Reason: Nausea/Vomiting Pantoprazole Sodium (Protonix Ec Tab) 40 mg PO 0600 [facility] Last Admin: 06/11/18 06:35 Dose: 40 mg Tamsulosin HCl (Flomax) 0.4 mg PO DAILY [facility] Last Admin: 06/11/18 11:15 Dose: 0.4 mg Thiamine HCl (Vitamin B1 Tab) 100 mg PO DAILY [facility] Last Admin: 06/11/18 11:14 Dose: 100 mg - Labs Labs: 06/11/18 07:00 06/11/18 07:00 PT 13.0 SECONDS (9.4-12.5) H 06/08/18 18:19 INR 1.14 06/08/18 18:19 APTT 34.3 Seconds (25.1-36.5) 06/08/18 18:19 - Additional Findings Additional findings: - Constitutional Appears: Unkempt, Older Than Stated Age, Chronically Ill - Head Exam Head Exam: ATRAUMATIC, NORMAL INSPECTION - Eye Exam Eye Exam: EOMI, Normal appearance, PERRL - ENT Exam ENT Exam: Mucous Membranes Dry - Neck Exam Neck exam: Positive for: Normal Inspection. Negative for: Thyromegaly - Respiratory Exam Respiratory Exam: Clear to Auscultation Bilateral, NORMAL BREATHING PATTERN. absent: Rales, Rhonchi, Wheezes - Cardiovascular Exam Cardiovascular Exam: REGULAR RHYTHM, +S1, +S2. absent: Tachycardia, JVD, Systolic Murmur - GI/Abdominal Exam GI & Abdominal Exam: Normal Bowel Sounds. absent: Tenderness - Extremities Exam Extremities exam: Positive for: normal inspection - Neurological Exam Neurological exam: Alert Additional comments: patient not cooperative with neuro exam - Psychiatric Exam Psychiatric exam: Flat Affect - Skin Skin Exam: Normal Color, Warm Additional comments: tattoo's all over body Assessment and Plan - Assessment and Plan (Free Text) Plan: Mr Chambers is a 50-year-old man with a past medical history of alcohol use disorder, history of seizure disorder, Hepatitis C, who was transported by EMS to the Emergency Department for seizure activity: Seizure Disorder -Likely due to home medication non-compliance as phenytoin level was subt herapeutic -Dilantin 1000mg ivp given in ED -Consult neurology, Dr Rolo Perry * Agrees seizure due to med non-compliance; Started him on keppra -CK 632 on admission, downtrending -Home dose is dilantin 200mg po tid, dilantin level was checked and was subtherapeutic -Keppra 500mg ivpb 500mg q12h -EEG * abnormal EEG due to presence of mild diffuse slowing consistent with mild bilateral cerebral dysfunction. No evidence of epileptiform activity. -NPO, seizure precautions NSTEMI -Troponin 0.19 -> 0.18 -Consult telegraph equipment maintainer, Dr Reynoso * Need to rule out PE as cause of his NSTEMI (however patient ruled out his angio cath) * Anticoagulation inappropriate given his seizure disorder * Cardiac status is stable at this time * Telemetry was discontinued 06/10 -Echo with moderate aortic sclerosis otherwise normal echo -Hold Aspirin 81mg po qd 2/2 to hematuria -Atorvastatin 40mg po din Nasal Fracture -2/2 to fall; No active bleeding -Consult otolaryngology, Dr Garcia * No reduction necessary at this time * Patient should be re-evaluated by ENT in 2 weeks for possible treatment if necessary at that time -CT maxillofacial w/o contrast: * Bilateral nasal bone fractures, minimally displaced to the right. No other calvarial fracture. -CT head w/o contrast: * Bifrontal scalp swelling. No calvarial fracture. No acute intracranial pathology. Age-related changes. No significant interval change. Hematuria -Patient agitated and pulled out his echevarria cath with resulting hematuria -Consult UrologyMandie -Urine Cx negative -Flomax 0.4mg po qd -Echevarria removed, order for bladder scan if patient retaining and straight cath if necessary Suspect Suicidal Ideations -Consult Psychiatry, Dr Hernandez * Given patient with NSTEMI and all antipsychotics cause QTc prolongation - observe for now COPD -Saturating well on room air -Levalbuterol 0.63mg IH q6h Alcohol Use Disorder -Vitamin B12 1000mcg IM qd -Folic Acid 1mg po qd -Thiamine 100mg po qd Tobacco Use Disorder -Nicotine 21mg/24hr 1 patch td qd Agitation/Anxiety -Ativan 0.5mg ivp q6h prn for seizure activity/agitation/anxiety PPX -Hold Lovenox 40mg sc qd 2/2 to hematuria -Protonix 40mg po qd -OT/PT/ST
--- NOTE | 2018-06-11 22:13 | PN ---
DATE: 06/11/2018 SUBJECTIVE: Shortly, the patient is a 52-year-old with history of alcohol use disorder. The patient was admitted on the medical site for seizure episodes. Also, the patient was found to have questionable [id number] of myocardial infarction, multiple medical problems. Psych consult was called for evaluation of change in mental status, depressive symptoms as well as possible suicidal ideation. The patient was seen initially by this rewriter yesterday. The patient presented to be very concrete thought process. There is some cognitive limitation most likely due to chronic alcohol use disorder. The patient denied that he was feeling depressed but had echolalia, the patient was repeating the same thing this rewriter was asking. Overnight, the patient had episodes where he was trying to climb off the bed and also pull Christianson catheter. The patient was started on one to one. The patient was followed up today. The patient presented to be alert, very concrete thought process. The patient denied that he feels depressed. Denied thoughts of harming himself or others. Denied intent or plan. Insight and judgment seems to be improving but very limited. The patient has fair appetite but seems to have restless night. Vital signs reviewed. Temperature 98.4, pulse of 60, blood pressure 90/58, respiration 18, oxygen saturation is 100. Medications reviewed. The patient is on Tylenol, Lipitor, Depakote 125 mg twice a day scheduled. This rewriter initiated that medication in order to help the patient with the irritability and mood swings. Also it could prevent seizures, Colace, Lovenox, Drisdol, folic acid, Keppra, Ativan 0.5 mg every 6 hours p.r.n. for anxiety, Nicoderm, Zofran, Protonix, Flomax, and vitamin B1. Labs reviewed. Reports reviewed. MENTAL STATUS EXAMINATION: As this rewriter described above. The patient presented to be alert, intense eye contact. Mood described as, "I feel better". Affect was constricted. Speech was underproductive, loud, no or yes answers, affect was flat. Thought content, the patient denied hearing voices, denied seeing things. Denied thoughts of harming himself or others. Denied intent or plan. Insight and judgment seems to be improving but limited. Impulses are not predictable. IMPRESSION: Rule out alcohol related dementia, alcohol use disorder. The patient has very unsteady gait, rule out mood disorder, rule out substance-induced mood disorder. PLAN: Multivitamins, thiamine and folic acid. Depakote was started. The patient is on one to one. There is no need for antipsychotic medication. Ativan as needed. We will follow up on this patient every other day. The patient denied being depressed. Denied thoughts of killing himself or others. Thank you very much for letting me to participate in care of your patient. Mary Pearson MD [facility]
--- NOTE | 2018-06-12 01:39 | PN ---
DATE: 06/11/2018 SUBJECTIVE: The patient was seen and examined in room 567, bed #2. The patient is present on 1:1. The patient had episodes of agitation and restlessness overnight. The patient pulled out his Christianson catheter, was noted to have traumatic hematuria. The patient was evaluated by the residents and the house physician, Dr. Angulo. The patient's repeat lab work was done. The patient's CBC shows a drop in the hemoglobin from the admission hemoglobin of around 11 to 12 g down to 8.8 g. The patient at present is seen lying in the bed. The patient appears to be . PHYSICAL EXAMINATION: GENERAL: The patient is alert, awake, responsive, oriented to person and place. The patient is seen lying in the bed. VITAL SIGNS: T-max afebrile; heart rate 62, 63, 58; respiration 18 to 20, O2 sat 95% to 97%. Blood pressure 98/64. HEENT: Normocephalic, atraumatic. Shows facial contusions. No oropharyngeal lesion. NECK: No neck rigidity. CHEST: CARDIOVASCULAR: S1 and S2, regular rhythm. Questionable soft systolic murmur left sternal border, right second intercostal space, left second intercostal space. LUNGS: Shows occasional rhonchi upper lung hancock. ABDOMEN: Soft. Positive bowel sounds. GENITALIA: Male, circumcised, no overt hematuria noted. MUSCULOSKELETAL: Shows a decreased muscle mass. Overall hygienic condition is poor. LABORATORY DATA: CMP, LFTs reviewed which are within normal limits. CBC shows a drop of hemoglobin from admission hemoglobin of 11 to 12 g down to 8.8 g. IMPRESSION: 1. Traumatic hematuria secondary to Christianson dislodgement. 2. Possible acute blood loss anemia secondary to traumatic hematuria. 3. Alcohol related dementia. 4. Questionable and possible major depressive disorder with a generalized anxiety disorder. 5. Recurrent breakthrough seizures secondary to noncompliance with antiepileptic drugs. 6. Hepatitis C. 7. Deconditioning. 8. Gait dysfunction. 9. History of traumatic brain injury and craniotomy. 10. History of cerebral encephalomalacia. 11. History of seizure disorder. 12. History of left temporal lobe seizure disorder. 13. History of vitamin B12 deficiency. 14. History of hypovitaminosis D and vitamin B12 deficiency. 15. Deconditioning. 16. Poor hygienic status. 1. Recurrent breakthrough seizures versus alcohol withdrawal seizure. 2. Questionable uye-IK-mfjaeyrkf myocardial infarction with elevated troponin. 3. History of alcohol, nicotine and polysubstance abuse and dependence. 4. History of craniotomy. 5. Status post fall. 6. Normocytic anemia with granulocytosis. 7. Hypokalemia. 8. Hypomagnesemia. 9. Questionable mild rhabdomyolysis with elevated CPK. 10. Microscopic hematuria. 11. History of polysubstance abuse with urine drug screen positive for cannabinoids. 12. Sinus bradycardia. 13. Questionable age indeterminate septal myocardial infarction. 14. History of incomplete right bundle-branch block. 15. Deconditioning. 16. Gait dysfunction. 17. Poor personal hygiene. 18. History of chronic alcohol abuse. 19. Alcohol withdrawal seizure. 20. History of hepatitis C. 21. Nondisplaced nasal bone fracture. 22. Hypotension. 23. Bradycardia. 24. Constipation. 25. Hypovitaminosis D. 26. Vitamin B12 deficiency. 27. Hyperlipidemia. 28. Nicotine dependence. 29. Vitamin B12 deficiency. 1. Recurrent seizures. 2. History of nicotine, alcohol and drug abuse and dependence. 3. Possible alcohol withdrawal seizure. 4. History of traumatic brain injury. 5. History of craniotomy and traumatic brain injury. 6. Possible breakthrough seizure secondary to noncompliance with antiepileptic therapy. 7. Hypotension. 8. Bradycardia. 9. Normocytic anemia. 10. Granulocytosis. 11. Status post fall. 12. Facial contusion and bilateral nasal bone fracture, nondisplaced. 13. Hypomagnesemia. 14. Acute non-ST elevation myocardial infarction with elevated troponin. 15. Mild rhabdomyolysis. 16. Microscopic hematuria. 17. History of active alcohol, nicotine and drug abuse with urine drug screen positive for cannabinoids. 18. Bilateral nasal bone fracture minimally displaced to the right. 19. Bifrontal scalp swelling. 20. Biparietal craniotomy. 21. Cerebral cortical atrophy of the brain with chronic microvascular ischemic disease of the brain. 21. Deconditioning. 22. Gait dysfunction. 23. History of hepatitis C. 1. Recurrent witnessed seizures secondary to noncompliance with antiepileptic drugs. 2. Questionable suicidal ideation. 3. Postictal state. 4. Bradycardia. 5. Hypertension. 6. History of history of traumatic brain injury, history of multiple bilateral craniotomy. 7. Anemia. 8. Granulocytosis. 9. Hypomagnesemia. 10. Microscopic hematuria. 11. History of active nicotine, alcohol and drug use and dependence. 12. Facial contusion secondary to fall. 13. Bilateral nasal bone fracture with displacement to the right. 14. Chronic microvascular ischemic disease of the brain. 15. Bifrontal scalp swelling. 16. Gait dysfunction and recurrent falls. PLAN: At this time, the patient has been ordered transfusion of PRBC 2 units today to keep hemoglobin around 10 g. The patient will be monitored for hematuria. The patient will be ordered serial labs. The patient at present will be continued on the IV fluid hydration. The patient will be stopped on Lovenox and DVT prophylaxis. All anticoagulation will be stopped at this time. The patient will be continued on the other therapeutic interventions and medications as per the MAR of today. The patient will continue on physical therapy, occupational therapy, ambulation therapy, gait training, out of bed to chair. At present, we have updated the patient's mother about the patient's condition, diagnosis and treatment options. I have explained to the patient's mother about overall the patient's declining medical condition and decompensated state which she acknowledged understand. All questions concerned answered. Repeat lab orders for the morning. Dictated and electronically signed, not read. Stephen Thornton MD [facility]
[2018-06-12] MEDS: Albuterol-Ipratrop 3 mg / 0.5 (3 ml) UD IH SCH ×4 (01:46→20:11)
[2018-06-12] MEDS: Pantoprazole 40 mg EC Tab PO SCH (05:15)
[2018-06-12] MEDS: levETIRAcetam 500mg IVPB 500 MG/100 ML BAG IVPB SCH ×2 (09:28→21:29)
[2018-06-12] MEDS: Enoxaparin 40 mg Syringe SC SCH (09:28)
[2018-06-12] MEDS: Divalproex 125 mg EC Sprinkle Cap PO SCH ×2 (09:35→21:29)
[2018-06-12] MEDS: Sodium Chloride 0.9% 1,000 ML IV SCH (09:38)
[2018-06-12 11:37] LABS: BASO # 0.01 K/mm3 (0.0-2.0); BASO % 0.2 % (0.0-3.0); EOS # 0.1 (0.0-0.7); EOS % 2.2 % (1.5-5.0); GRAN # 3.43 (1.4-6.5); GRAN % 67.2 % (50.0-68.0); HEMOGLOBIN 11.1 g/dL (14.0-18.0); LYMPH # 1.1 (1.2-3.4); LYMPH % 21.4 % (22.0-35.0); MEAN CELL VOLUME 93.4 fl (80.0-105.0); MEAN CORPUSCULAR HGB CONC 34.3 g/dl (31.0-37.0); MEAN PLATELET VOLUME 8.8 fl (7.0-11.0); MONO # 0.5 (0.1-0.6); RBC 3.47 10^6/uL (3.5-6.1); RED CELL DISTRIBUTION WIDTH 14.6 % (11.5-14.5); WHITE BLOOD COUNT 5.1 10^3/ul (4.5-11.0)
[2018-06-12 11:45] LABS: INR 1.05; PARTIAL THROMBOPLASTIN TIME 36.2 Seconds (25.1-36.5); PROTHROMBIN TIME 12.1 SECONDS (9.4-12.5)
--- NOTE | 2018-06-12 11:45 | PN ---
DATE: 06/12/2018 UROLOGY PROGRESS NOTE SUBJECTIVE: See the previous hospital admission history and physical. We were consulted for hematuria. Mr. Chambers is a very pleasant gentleman, 52 years old, for recurrent seizures and difficulty with alcohol. Urology is consulted regarding hematuria. This seems to have taken place after the patient removed the Christianson catheter, perhaps even with a balloon inflated. So from Urology standpoint, we are here for further details. The patient does report some difficulty urinating. There has been bladder cancer, see that in the chart. See the plan listed below. Right now, we are going to hold off. The review of systems, past medical and surgical all listed in the chart, otherwise unremarkable. PHYSICAL EXAMINATION: GENERAL: The patient is resting comfortably. ABDOMEN: Overall soft. Definitely, not grossly distended, is here to evaluate. The remainder of physical exam is deferred for now. Rectal exam is deferred. DIAGNOSES: Hematuria, voiding dysfunction. A very pleasant gentleman. He is currently getting the seizures and other issues. From urology standpoint, right now as long as he is not in retention, he is able to urinate, we are not going to do any further testing. We spoke to the patient, he does need further diagnostic studies. The plan is as follows, 1. For now, observation. 2. Did discuss with him further outpatient cystoscopy, but not right now. 3. He will also require PSA as well. So further plans will follow. We will follow along, but no cystoscopy, no procedure is planned as of now. Vipin Liu MD
[2018-06-12 11:53] LABS: ALB/GLOB RATIO 1.2 (1.1-1.8); ALBUMIN 3.2 g/dL (3.0-4.8); ALT/SGPT 22 U/L (7-56); AST/SGOT 31 U/L (17-59); BLOOD UREA NITROGEN 9 mg/dL (7-21); CALCIUM 8.3 mg/dL (8.4-10.5); GFR NON-AFRICAN AMERICAN > 60
--- NOTE | 2018-06-12 16:16 | PCM.URO ---
Urology Progress Note - Objective Lab Studies: Reviewed (gu dx: hematuria, gu plans: cysto delayed for now . Today and yesterday the urine has cleared up, th blood started after pt removed his echevarria on his own. Plans for ct scan prior to cysto and then we can discuss the timing . His Hg is noted perhaps this is hydration , i expalined this to the patient .) Lab Results Last 24 Hours: Laboratory Results - last 24 hr 06/11/18 06/12/18 06/12/18 12:00 11:30 11:30 WBC 5.1 RBC 3.47 L Hgb 11.1 L D Hct 32.4 L MCV 93.4 MCH 32.0 MCHC 34.3 RDW 14.6 H Plt Count 228 MPV 8.8 Gran % 67.2 Lymph % (Auto) 21.4 L [place] % (Auto) 9.0 H Eos % (Auto) 2.2 Baso % (Auto) 0.2 Gran # 3.43 Lymph # (Auto) 1.1 L [place] # (Auto) 0.5 Eos # (Auto) 0.1 Baso # (Auto) 0.01 PT INR APTT Sodium 141 Potassium 4.1 Chloride 107 Carbon Dioxide 28 Anion Gap 10 BUN 9 Creatinine 0.6 L Est GFR ( Amer) > 60 Est GFR (Non-Af Amer) > 60 Random Glucose 83 Calcium 8.3 L Magnesium 1.7 Total Bilirubin 0.2 Direct Bilirubin 0.0 AST 31 ALT 22 Alkaline Phosphatase 85 Total Protein 5.8 Albumin 3.2 Globulin 2.6 Albumin/Globulin Ratio 1.2 Blood Type B POSITIVE Antibody Screen Negative Crossmatch See Detail BBK History Checked No verified bt 06/12/18 11:30 WBC RBC Hgb Hct MCV MCH MCHC RDW Plt Count MPV Gran % Lymph % (Auto) [place] % (Auto) Eos % (Auto) Baso % (Auto) Gran # Lymph # (Auto) [place] # (Auto) Eos # (Auto) Baso # (Auto) PT 12.1 INR 1.05 APTT 36.2 Sodium Potassium Chloride Carbon Dioxide Anion Gap BUN Creatinine Est GFR ( Amer) Est GFR (Non-Af Amer) Random Glucose Calcium Magnesium Total Bilirubin Direct Bilirubin AST ALT Alkaline Phosphatase Total Protein Albumin Globulin Albumin/Globulin Ratio Blood Type Antibody Screen Crossmatch BBK History Checked Intake & Output: Intake & Output 06/11/18 06/12/18 06/12/18 18:59 06:59 18:59 Intake Total 25 650 Balance 25 650 Intake: Blood Product 0 650 Red Blood Cells Cpd As1 0 325 Lr Unit [id number] Red Blood Cells Cpd As1 325 Lr Unit [id number] Other 25 Red Blood Cells Cpd As1 25 Lr Unit [id number] Vital Signs: Vital Signs - 24 hr 06/11/18 06/11/18 06/11/18 17:58 18:18 19:00 Temperature 98.4 F 98.4 F 98.6 F Pulse Rate 65 65 66 Respiratory 16 16 18 Rate Blood Pressure 101/62 101/71 109/75 O2 Sat by Pulse Oximetry 06/11/18 06/11/18 06/11/18 19:03 20:51 20:54 Temperature 98.4 F 98.4 F 98.4 F Pulse Rate 65 65 59 L Respiratory 18 18 18 Rate Blood Pressure 117/73 117/73 107/72 O2 Sat by Pulse Oximetry 06/11/18 06/11/18 06/12/18 21:12 21:42 06:00 Temperature 98.2 F 98.4 F 98.4 F Pulse Rate 59 L 67 66 Respiratory 18 18 18 Rate Blood Pressure 122/71 117/73 96/64 L O2 Sat by Pulse 100 99 Oximetry 06/12/18 14:00 Temperature 98.3 F Pulse Rate 60 Respiratory 18 Rate Blood Pressure 118/78 O2 Sat by Pulse 100 Oximetry
--- NOTE | 2018-06-12 16:44 | PN ---
DATE: 06/12/2018 CARDIOLOGY FOLLOWUP SUBJECTIVE: The patient is confused without shortness of breath, without chest pain. No recurrent seizures noted. PHYSICAL EXAMINATION VITAL SIGNS: Blood pressure is 96/64, the heart rate is in the 60s. NECK: Negative JVD. LUNGS: Clear. HEART: Reveals S1 and S2. EXTREMITIES: Without change. LABORATORY DATA: Hemoglobin is 8.8. Troponin is down to 0.01. IMPRESSION: 1. Recurrent seizures. 2. Transient elevated troponins without evidence for acute coronary syndrome. 3. Good left ventricular function. 4. History of hepatitis C. 5. History of alcoholism. 6. Pulmonary hypertension. 7. Chronic obstructive pulmonary disease. PLAN: Given these findings, there is no active cardiac issues at this time. Javier Reynoso MD
[2018-06-12] MEDS: Magnesium Oxide 400 mg Tab UD PO SCH (21:29)
--- NOTE | 2018-06-12 22:17 | PN ---
DATE: 06/12/2018 SUBJECTIVE: The patient was seen in room 567, bed 2. The patient is in process of being started for physical therapy. The patient is completely alert, awake, responsive. The patient has refused to have haircut and moody shaved. The patient is alert, awake, responsive, but slightly uncooperative. The patient follows command. Overnight nurse's notes were reviewed. PHYSICAL EXAMINATION: VITAL SIGNS: T-max 98.4; pulse 60, 66, 67; blood pressure 96/64, 117/73, 118/78; respiration 18; O2 sat 99%-100%. HEENT: Head: Normocephalic, atraumatic. HEENT examination shows positive facial contusion, overgrown moody and scalp hair. Poor hygiene. No neck rigidity. Positive craniotomy surgical scar noted. CHEST: Kyphosis. LUNGS: Examination shows occasional rhonchi anterior lung field and upper lung field. CARDIOVASCULAR: S1, S2, regular rhythm. Questionable soft systolic murmur at left sternal border, right second intercostal space, left second intercostal space. ABDOMEN: Soft. Positive bowel sound. GENITALIA: Male. No Christianson catheter. No bleeding noted at the urethral meatus. EXTREMITIES: Shows no pitting edema, no calf tenderness, no Homans' sign. NEUROLOGIC: The patient is alert, awake, responsive, oriented to person, place; disoriented to year, date, month. MUSCULOSKELETAL: Examination shows a body mass index of 20. DIAGNOSTICS: 06/12, WBC of 5.1, hemoglobin/hematocrit 11.1/32.4, platelet 228. PT/PTT 12.1/36.2. Sodium 141, potassium 4.1, chloride 107, CO2 28, anion gap 10, BUN 9, creatinine 0.6, GFR greater than 60, glucose 83, calcium 8.3, magnesium is 1.7. LFTs are normal. RPR is negative. Urine cultures are negative. The patient is status post 2 units of packed red blood cell transfusion. The patient's echocardiogram and EKG was reviewed. The patient's Urology recommendations were noted. Urology has seen the patient and ordered a CT of the abdomen and pelvis. IMPRESSION: 1. Recurrent witnessed seizure secondary to noncompliance with antiepileptic drugs and breakthrough seizure. 2. Questionable suicidal ideation. 3. Gross hematuria with acute blood loss anemia secondary to hematuria. 4. Bradycardia. 5. Hypotension. 6. Acute blood loss anemia secondary to gross hematuria. 7. Hypokalemia. 8. Elevated troponin, questionable non-ST elevation myocardial infarction. 9. Questionable rhabdomyolysis with elevated CPK. 10. Protein malnutrition and mild hypoalbuminemia. 11. Trace proteinuria, microscopic hematuria, pyuria. 12. Active nicotine, alcohol and marijuana abuse and dependence. 13. History of traumatic brain injury and multiple craniotomy. 14. History of seizure disorder. 15. Status post packed red blood cell transfusion. 16. Facial contusion secondary to fall. 17. Moderately calcified aortic valve. 18. Mild mitral annular calcification and mild tricuspid regurgitation and aortic sclerosis and left ventricular ejection fraction of 57%. 19. Asymptomatic sinus bradycardia. 20. Hematuria and voiding dysfunction. 21. History of hepatitis C. 22. Deconditioning. 23. Gait dysfunction. 24. Possible alcohol related dementia and alcohol use disorder. 25. Possible substance-induced mood disorder. 26. Questionable suicidal ideation. 27. History of vitamin B12 deficiency. 28. Hypovitaminosis D. 29. History of prostatic hypertrophy. 30. Hyperlipidemia. 31. Vitamin B12 deficiency. 1. Traumatic hematuria secondary to Christianson dislodgement. 2. Possible acute blood loss anemia secondary to traumatic hematuria. 3. Alcohol related dementia. 4. Questionable and possible major depressive disorder with a generalized anxiety disorder. 5. Recurrent breakthrough seizures secondary to noncompliance with antiepileptic drugs. 6. Hepatitis C. 7. Deconditioning. 8. Gait dysfunction. 9. History of traumatic brain injury and craniotomy. 10. History of cerebral encephalomalacia. 11. History of seizure disorder. 12. History of left temporal lobe seizure disorder. 13. History of vitamin B12 deficiency. 14. History of hypovitaminosis D and vitamin B12 deficiency. 15. Deconditioning. 16. Poor hygienic status. 1. Recurrent breakthrough seizures versus alcohol withdrawal seizure. 2. Questionable [id number] myocardial infarction with elevated troponin. 3. History of alcohol, nicotine and polysubstance abuse and dependence. 4. History of craniotomy. 5. Status post fall. 6. Normocytic anemia with granulocytosis. 7. Hypokalemia. 8. Hypomagnesemia. 9. Questionable mild rhabdomyolysis with elevated CPK. 10. Microscopic hematuria. 11. History of polysubstance abuse with urine drug screen positive for cannabinoids. 12. Sinus bradycardia. 13. Questionable age indeterminate septal myocardial infarction. 14. History of incomplete right bundle-branch block. 15. Deconditioning. 16. Gait dysfunction. 17. Poor personal hygiene. 18. History of chronic alcohol abuse. 19. Alcohol withdrawal seizure. 20. History of hepatitis C. 21. Nondisplaced nasal bone fracture. 22. Hypotension. 23. Bradycardia. 24. Constipation. 25. Hypovitaminosis D. 26. Vitamin B12 deficiency. 27. Hyperlipidemia. 28. Nicotine dependence. 29. Vitamin B12 deficiency. 1. Recurrent seizures. 2. History of nicotine, alcohol and drug abuse and dependence. 3. Possible alcohol withdrawal seizure. 4. History of traumatic brain injury. 5. History of craniotomy and traumatic brain injury. 6. Possible breakthrough seizure secondary to noncompliance with antiepileptic therapy. 7. Hypotension. 8. Bradycardia. 9. Normocytic anemia. 10. Granulocytosis. 11. Status post fall. 12. Facial contusion and bilateral nasal bone fracture, nondisplaced. 13. Hypomagnesemia. 14. Acute non-ST elevation myocardial infarction with elevated troponin. 15. Mild rhabdomyolysis. 16. Microscopic hematuria. 17. History of active alcohol, nicotine and drug abuse with urine drug screen positive for cannabinoids. 18. Bilateral nasal bone fracture minimally displaced to the right. 19. Bifrontal scalp swelling. 20. Biparietal craniotomy. 21. Cerebral cortical atrophy of the brain with chronic microvascular ischemic disease of the brain. 21. Deconditioning. 22. Gait dysfunction. 23. History of hepatitis C. 1. Recurrent witnessed seizures secondary to noncompliance with antiepileptic drugs. 2. Questionable suicidal ideation. 3. Postictal state. 4. Bradycardia. 5. Hypertension. 6. History of history of traumatic brain injury, history of multiple bilateral craniotomy. 7. Anemia. 8. Granulocytosis. 9. Hypomagnesemia. 10. Microscopic hematuria. 11. History of active nicotine, alcohol and drug use and dependence. 12. Facial contusion secondary to fall. 13. Bilateral nasal bone fracture with displacement to the right. 14. Chronic microvascular ischemic disease of the brain. 15. Bifrontal scalp swelling. 16. Gait dysfunction and recurrent falls. PLAN: At this time, the patient has been ordered a CAT scan by Urology, which is pending. The patient will have one more set of repeat labs for the morning for evaluation of the patient's electrolytes and hemoglobin/hematocrit pattern. The patient's at present further management will be dependent upon the patient's clinical condition, hemodynamic status and as per the patient's response to therapeutic intervention, as per the patient's diagnostic test results and as per recommendation by all the physicians involved in the care of the patient. The patient's mother has been explained about the patient's overall guarded to poor prognosis because of the decompensated state and recurrent seizures and noncompliance. CURRENT CONSULTATIONS: Neurology, ENT, Cardiology, Urology and Psychiatry. CURRENT MEDICATIONS: Ativan 0.5 mg IV every 6 hours p.r.n., Colace 100 mg three times a day. The patient has been started by Psychiatry on Depakote 125 mg twice a day, Drisdol 50,000 units weekly, DuoNeb nebulizer every 6 hours [id number], Flomax 0.4 mg daily, folic acid 1 mg daily, Keppra 500 mg IV every 12, Lipitor 40 mg daily, Lovenox 40 mg subcu daily, magnesium oxide 400 twice a day, nicotine patch 21 mg daily, Protonix 40 mg daily, IV fluid 0.9 normal saline at 100 mL an hour, Tylenol 650 mg p.o. every 6 hours and suppository every 6 hours p.r.n., thiamine 100 mg p.o. daily, vitamin B12 1000 mcg IM daily and Zofran 4 mg IV every [address] abdomen and pelvis has been ordered by the Urology. The patient is on regular diet. The patient is on neuro checks CIWA protocol, out of bed. The patient is on one to one sitter ordered by the medical service. The patient has been ordered physical therapy, occupational therapy, ambulation therapy. The patient has been ordered SCDs, CURT stockings. The patient's overall prognosis is guarded to poor. The patient will continue on the above therapeutic intervention. The patient's case referred to Program Services Planner for discharge planning. The patient's case also referred for TCU evaluation. Dictated and electronically signed, not read. Stephen Thornton MD [facility] # [id number] SHARMILA
[2018-06-13] MEDS: Albuterol-Ipratrop 3 mg / 0.5 (3 ml) UD IH SCH ×4 (01:10→21:06)
[2018-06-13] MEDS: Pantoprazole 40 mg EC Tab PO SCH (05:43)
[2018-06-13] MEDS: Enoxaparin 40 mg Syringe SC SCH (09:40)
[2018-06-13] MEDS: Divalproex 125 mg EC Sprinkle Cap PO SCH ×2 (09:53→17:23)
[2018-06-13] MEDS: Magnesium Oxide 400 mg Tab UD PO SCH ×2 (09:54→17:22)
--- NOTE | 2018-06-13 11:11 | PN ---
DATE: 06/13/2018 SUBJECTIVE: The patient is seen lying in the bed in room 567, bed 2. The patient is comfortable. No distress. The patient's one-to-one was discontinued. The patient is continued on the EVAC system for camera monitoring. The patient is voiding without any hematuria according to the nurses' notes. PHYSICAL EXAMINATION: GENERAL: The patient is seen lying in the bed. Patient is comfortable, alert, awake, responsive, poor hygiene with overgrowth scalp hair and moody noted. VITAL SIGNS: T-max 98.3, heart rates 54, 65, 60, blood pressure 113/83, respiration 20, O2 sat 96%. HEAD: Normocephalic, atraumatic. HEENT examination shows pinkish conjunctivae. Anicteric sclerae. Poor overall hygiene, overgrown scalp and moody hair noted. No neck rigidity. CHEST: Kyphosis. Positive craniotomy surgical scar. LUNGS: Examination shows occasional rhonchi in upper lung hancock. CARDIOVASCULAR: S1, S2, regular rhythm. Questionable systolic murmur in left sternal border, left second intercostal space. ABDOMEN: Soft. Positive bowel sound. GENITALIA: Male. Also does not reveal any hematuria. RECTAL: Deferred. EXTREMITIES: Shows no pitting edema, no calf tenderness, no Homans' sign. MUSCULOSKELETAL: Shows a body mass index of 20. NEUROLOGIC: Cranial nerves II-XII limited. Gait examination could not be tested as the patient is seen lying in the bed. VASCULAR: Palpable pulses. DIAGNOSTICS: From 06/13/2018 is still pending which has been ordered. Urine cultures, no growth. Lab data from 06/12/2018 was reviewed. IMPRESSION AND PLAN: 1. Breakthrough seizures with recurrent witnessed seizure secondary to noncompliance with antiepileptic drugs. 2. Gross hematuria, probably traumatic hematuria. 3. Bradycardia. 4. Hypotension. 5. Acute blood loss anemia probably secondary to hematuria with decreasing hemoglobin and hematocrit. 6. Status post packed red blood cell transfusion. 7. Hypokalemia. 8. Elevated troponin, etiology unclear versus questionable non-ST elevation myocardial infarction. 9. Mild rhabdomyolysis with elevated CPK. 10. Proteinuria, microscopic hematuria, pyuria. 11. History of alcohol, nicotine and polysubstance abuse and dependence with urine drug screen positive for cannabinoids. 12. Deconditioning 13. Gait dysfunction. 14. History of hepatitis C. 15. Hypovitaminosis D. 16. History of prostatic hypertrophy. 17. History of seizure disorder. 18. Dyslipidemia. 19. Hypomagnesemia. 20. Vitamin B12 deficiency. 1. Recurrent witnessed seizure secondary to noncompliance with antiepileptic drugs and breakthrough seizure. 2. Questionable suicidal ideation. 3. Gross hematuria with acute blood loss anemia secondary to hematuria. 4. Bradycardia. 5. Hypotension. 6. Acute blood loss anemia secondary to gross hematuria. 7. Hypokalemia. 8. Elevated troponin, questionable non-ST elevation myocardial infarction. 9. Questionable rhabdomyolysis with elevated CPK. 10. Protein malnutrition and mild hypoalbuminemia. 11. Trace proteinuria, microscopic hematuria, pyuria. 12. Active nicotine, alcohol and marijuana abuse and dependence. 13. History of traumatic brain injury and multiple craniotomy. 14. History of seizure disorder. 15. Status post packed red blood cell transfusion. 16. Facial contusion secondary to fall. 17. Moderately calcified aortic valve. 18. Mild mitral annular calcification and mild tricuspid regurgitation and aortic sclerosis and left ventricular ejection fraction of 57%. 19. Asymptomatic sinus bradycardia. 20. Hematuria and voiding dysfunction. 21. History of hepatitis C. 22. Deconditioning. 23. Gait dysfunction. 24. Possible alcohol related dementia and alcohol use disorder. 25. Possible substance-induced mood disorder. 26. Questionable suicidal ideation. 27. History of vitamin B12 deficiency. 28. Hypovitaminosis D. 29. History of prostatic hypertrophy. 30. Hyperlipidemia. 31. Vitamin B12 deficiency. 1. Traumatic hematuria secondary to Christianson dislodgement. 2. Possible acute blood loss anemia secondary to traumatic hematuria. 3. Alcohol related dementia. 4. Questionable and possible major depressive disorder with a generalized anxiety disorder. 5. Recurrent breakthrough seizures secondary to noncompliance with antiepileptic drugs. 6. Hepatitis C. 7. Deconditioning. 8. Gait dysfunction. 9. History of traumatic brain injury and craniotomy. 10. History of cerebral encephalomalacia. 11. History of seizure disorder. 12. History of left temporal lobe seizure disorder. 13. History of vitamin B12 deficiency. 14. History of hypovitaminosis D and vitamin B12 deficiency. 15. Deconditioning. 16. Poor hygienic status. 1. Recurrent breakthrough seizures versus alcohol withdrawal seizure. 2. Questionable [id number] myocardial infarction with elevated troponin. 3. History of alcohol, nicotine and polysubstance abuse and dependence. 4. History of craniotomy. 5. Status post fall. 6. Normocytic anemia with granulocytosis. 7. Hypokalemia. 8. Hypomagnesemia. 9. Questionable mild rhabdomyolysis with elevated CPK. 10. Microscopic hematuria. 11. History of polysubstance abuse with urine drug screen positive for cannabinoids. 12. Sinus bradycardia. 13. Questionable age indeterminate septal myocardial infarction. 14. History of incomplete right bundle-branch block. 15. Deconditioning. 16. Gait dysfunction. 17. Poor personal hygiene. 18. History of chronic alcohol abuse. 19. Alcohol withdrawal seizure. 20. History of hepatitis C. 21. Nondisplaced nasal bone fracture. 22. Hypotension. 23. Bradycardia. 24. Constipation. 25. Hypovitaminosis D. 26. Vitamin B12 deficiency. 27. Hyperlipidemia. 28. Nicotine dependence. 29. Vitamin B12 deficiency. 1. Recurrent seizures. 2. History of nicotine, alcohol and drug abuse and dependence. 3. Possible alcohol withdrawal seizure. 4. History of traumatic brain injury. 5. History of craniotomy and traumatic brain injury. 6. Possible breakthrough seizure secondary to noncompliance with antiepileptic therapy. 7. Hypotension. 8. Bradycardia. 9. Normocytic anemia. 10. Granulocytosis. 11. Status post fall. 12. Facial contusion and bilateral nasal bone fracture, nondisplaced. 13. Hypomagnesemia. 14. Acute non-ST elevation myocardial infarction with elevated troponin. 15. Mild rhabdomyolysis. 16. Microscopic hematuria. 17. History of active alcohol, nicotine and drug abuse with urine drug screen positive for cannabinoids. 18. Bilateral nasal bone fracture minimally displaced to the right. 19. Bifrontal scalp swelling. 20. Biparietal craniotomy. 21. Cerebral cortical atrophy of the brain with chronic microvascular ischemic disease of the brain. 21. Deconditioning. 22. Gait dysfunction. 23. History of hepatitis C. 1. Recurrent witnessed seizures secondary to noncompliance with antiepileptic drugs. 2. Questionable suicidal ideation. 3. Postictal state. 4. Bradycardia. 5. Hypertension. 6. History of history of traumatic brain injury, history of multiple bilateral craniotomy. 7. Anemia. 8. Granulocytosis. 9. Hypomagnesemia. 10. Microscopic hematuria. 11. History of active nicotine, alcohol and drug use and dependence. 12. Facial contusion secondary to fall. 13. Bilateral nasal bone fracture with displacement to the right. 14. Chronic microvascular ischemic disease of the brain. 15. Bifrontal scalp swelling. 16. Gait dysfunction and recurrent falls. PLAN: At this time, patient's lab has been ordered, but still not done. Still pending. Current consultation, Neurology, ENT, Cardiology, Urology. All recommendations noted. Current medications, Ativan 0.5 mg IV every 6 hours p.r.n., Colace 100 mg three times a day, Depakote 125 mg twice a day, Drisdol 50,000 units weekly, DuoNeb nebulizer every 6 hours, Flomax 0.4 mg daily, folic acid 1 mg daily, Keppra 500 mg every 12 hours, Lipitor 40 mg daily, Lovenox 40 mg subcu daily, magnesium oxide 400 twice a day, nicotine patch 21 mg daily, Protonix 40 mg daily, normal saline at 100 mL an hour, Tylenol 650 mg p.o. suppository every 6 hours p.r.n., thiamine 100 mg daily, vitamin B12 of 1000 mcg IM daily, Zofran 4 mg IV every 4 hours p.r.n. The patient's CAT scan of the abdomen and pelvis with contrast ordered by Urology is still pending, CURT davalos, CMs, out of bed to chair, physical therapy, occupational therapy ordered. The patient was seen by the physical therapist. Their recommendation is subacute rehab according to the physical therapy evaluation which has been informed to the patient's mother. The patient at present will be continued on the above therapeutic intervention. Management will be dependent upon the patient's clinical condition, hemodynamic status and as per the patient's response to therapeutic intervention, as per the patient's diagnostic test results and as per recommendation by all the physicians involved in the care of the patient. Dictated and electronically signed, not read. Stephen Thornton MD [facility]
[2018-06-13] MEDS: levETIRAcetam 500mg IVPB 500 MG/100 ML BAG IVPB SCH ×2 (12:00→23:05)
[2018-06-13] MEDS: Sodium Chloride 0.9% 1,000 ML IV SCH (14:00)
[2018-06-13] MEDS ORDERED: Iohexol 350 MG/100 ML VIAL ONE (17:11)
--- NOTE | 2018-06-13 17:24 | CON ---
DATE: 06/13/2018 HISTORY OF PRESENT ILLNESS: Patient is a 52-year-old male with a history of severe alcohol use disorder who has been followed by Psychiatry for altered mental status, very much likely related to his alcohol use. I reviewed Dr. Pearson's note and met with the patient at bedside this morning. Patient is pleasant and cooperative with my questioning, however, he still appears to be confused and disoriented. He is aware that he is in the hospital for any consistent distant responses regarding his current circumstances, month or year. He know when this information was provided just a few minutes prior. Patient appears tired and sedated; however, he is not aggressive or agitated or irritable during questioning. He does not appear to be responding to internal stimuli and delusions were not elicited. Patient is not suicidal. He denies any current pain or discomfort. The staff notes indicates that the patient has been a little worse in orientation, is waxing and waning as well as his focus. Patient remains unpredictable with poor insight and judgment. Vital signs and labs are reviewed. RELEVANT PSYCHIATRIC MEDICATIONS: Include Depakote 125 mg p.o. b.i.d., Ativan 0.5 IV every 6 hours p.r.n. IMPRESSION: As per Dr. Pearson's notes alcohol related dementia. Patient has alcohol use disorder and appears currently delirious at this time. PLAN: We will continue with current treatment recommendations. There is no acute indications for change in his medications at this time. Psychiatry will continue to follow the patient. Monitor his mental status. Still suffering from delirium, which can take weeks to clear up even after the initial remedy. Please call for earlier followup if there are any acute changes in patient's presentation. Chari Jaimes MD
[2018-06-13 23:23] LABS: BASO # 0.03 K/mm3 (0.0-2.0); BASO % 0.7 % (0.0-3.0); EOS # 0.3 (0.0-0.7); EOS % 5.6 % (1.5-5.0); GRAN # 2.32 (1.4-6.5); GRAN % 51.4 % (50.0-68.0); HEMOGLOBIN 10.3 g/dL (14.0-18.0); LYMPH # 1.5 (1.2-3.4); LYMPH % 33.6 % (22.0-35.0); MEAN CELL VOLUME 95.1 fl (80.0-105.0); MEAN CORPUSCULAR HEMOGLOBIN 31.5 pg (25.0-35.0); MEAN CORPUSCULAR HGB CONC 33.1 g/dl (31.0-37.0); MEAN PLATELET VOLUME 8.5 fl (7.0-11.0); MONO # 0.4 (0.1-0.6); MONO % 8.7 % (1.0-6.0); RBC 3.27 10^6/uL (3.5-6.1); RED CELL DISTRIBUTION WIDTH 14.4 % (11.5-14.5); WHITE BLOOD COUNT 4.5 10^3/ul (4.5-11.0)
[2018-06-14] MEDS: Sodium Chloride 0.9% 1,000 ML IV SCH ×3 (00:22→18:33)
[2018-06-14] MEDS: Albuterol-Ipratrop 3 mg / 0.5 (3 ml) UD IH SCH ×4 (02:31→20:11)
[2018-06-14] MEDS: Pantoprazole 40 mg EC Tab PO SCH (06:13)
--- NOTE | 2018-06-14 08:38 | CT ---
Date of service: 06/13/2018 PROCEDURE: CT Abdomen and Pelvis with and without intravenous contrast HISTORY: Hematuria. COMPARISON: None. TECHNIQUE: Axial images of the abdomen were obtained in the pre contrast, portal venous and delayed phases of enhancement. Coronal and sagittal reformats were generated. Contrast dose: 100 cc Omnipaque 350. Radiation dose: Total exam DLP = 827.04 mGy-cm. This CT exam was performed using one or more of the following dose reduction techniques: Automated exposure control, adjustment of the mA and/or kV according to patient size, and/or use of iterative reconstruction technique. FINDINGS: LOWER THORAX: Unremarkable. LIVER: Unremarkable. No gross lesion or ductal dilatation. GALLBLADDER AND BILE DUCTS: Contracted otherwise unremarkable gallbladder. PANCREAS: Unremarkable. No gross lesion or ductal dilatation. SPLEEN: Unremarkable. ADRENALS: Unremarkable. No mass. KIDNEYS AND URETERS: Unremarkable. No hydronephrosis. No solid mass. VASCULATURE: Unremarkable. No aortic aneurysm. BOWEL: Fecal impaction/constipation without mechanical obstruction. APPENDIX: Normal appendix. PERITONEUM: Unremarkable. No free fluid. No free air. LYMPH NODES: Unremarkable. No enlarged lymph nodes. BLADDER: Diffuse bladder wall thickening without focal abnormality. Findings likely reflect cystitis. REPRODUCTIVE: Unremarkable. BONES: No acute fracture. OTHER FINDINGS: None. IMPRESSION: Bladder wall thickening likely reflective of cystitis without focal abnormality. Additional benign and/or incidental findings described above. Concordant results (preliminary interpretation) provided by [facility]. Procedure Completed: 19:34 Preliminary Report: Dictated and Authenticated: 20:36 Final Interpretation: 08:31. June 14, 2018.
[2018-06-14] MEDS ORDERED: Magnesium Citrate Oral SOL (300 ml) PO ONE (09:51)
[2018-06-14] MEDS ORDERED: Succinylcholine 200 mg/10 ml Inj IV ONE (11:14)
[2018-06-14] MEDS ORDERED: Phenylephrine 10 mg/ml Inj ONE ×2 (11:14→11:18)
[2018-06-14] MEDS ORDERED: Propofol 10 mg/ml Inj (20 ML) ONE (11:14)
[2018-06-14] MEDS: levETIRAcetam 500mg IVPB 500 MG/100 ML BAG IVPB SCH ×2 (11:45→22:33)
[2018-06-14] MEDS ORDERED: Midazolam 2 MG/2 ML VIAL ONE (12:08)
[2018-06-14] MEDS ORDERED: HYDROmorphone 0.5 mg/0.5 ml ISec IVP PRN ×2 (12:42→12:47)
[2018-06-14] MEDS ORDERED: Lactated Ringer's 1,000 ML IV SCH (12:45)
--- NOTE | 2018-06-14 12:47 | PCM.URO ---
Urology Progress Note - Objective Lab Studies: Reviewed (cystoscopy performed: findings-- bleeding from prostate, no blood from kidney or bladder we fulgarated bleeding and inserted a echevarria plans: echevarria to sd and then trial of void 06/15) Lab Results Last 24 Hours: Laboratory Results - last 24 hr 06/13/18 23:10 WBC 4.5 RBC 3.27 L Hgb 10.3 L Hct 31.1 L MCV 95.1 MCH 31.5 MCHC 33.1 RDW 14.4 Plt Count 232 MPV 8.5 Gran % 51.4 Lymph % (Auto) 33.6 [place] % (Auto) 8.7 H Eos % (Auto) 5.6 H Baso % (Auto) 0.7 Gran # 2.32 Lymph # (Auto) 1.5 [place] # (Auto) 0.4 Eos # (Auto) 0.3 Baso # (Auto) 0.03 Intake & Output: Intake & Output 06/13/18 06/14/18 06/14/18 18:59 06:59 18:59 Other: # Voids Urethral (Echevarria) 600 Vital Signs: Vital Signs - 24 hr 06/13/18 14:00 Temperature 97.5 F L Pulse Rate 68 Respiratory 20 Rate Blood Pressure 95/60 L O2 Sat by Pulse 100 Oximetry
[2018-06-14] MEDS: Divalproex 125 mg EC Sprinkle Cap PO SCH ×2 (13:58→18:40)
[2018-06-14] MEDS: Enoxaparin 40 mg Syringe SC SCH (14:01)
[2018-06-14] MEDS: Magnesium Oxide 400 mg Tab UD PO SCH ×2 (14:01→18:41)
--- NOTE | 2018-06-14 23:57 | PN ---
DATE: 06/14/2018 SUBJECTIVE: The patient was seen lying in the bed in room 567, bed 2. The patient is comfortable. The patient underwent cystoscopy today. Overnight, the patient was noted to have some blood in the urine. The patient had large amount of hematuria yesterday night. Patient's urologist was notified and patient underwent cystoscopy today in the early childhood coordinator. The patient had a Christianson catheter placed. At present, the patient is seen lying in the bed. The patient is alert, awake, responsive. Poor hygiene noted with overgrown scalp and moody. OBJECTIVE: VITAL SIGNS: T-max 98, heart rate 59, 50, 69, blood pressure 95/59, 117/69, 136/74, 123/74, respirations 20, O2 sat 95-100%. HEENT: Head examination normocephalic, atraumatic. HEENT examination shows pinkish conjunctivae, anicteric sclerae, dry oral mucosa. Positive bilateral craniotomy scars noted. NECK: No neck rigidity. CHEST: Kyphosis. LUNGS: Shows no rales, crackles or wheezing. CARDIOVASCULAR: Shows S1, S2, regular rhythm. Questionable soft systolic murmur on the left sternal border, right second intercostal space, left second intercostal space. ABDOMEN: Soft. Positive bowel sounds. GENITALIA: Male. Positive Christianson catheter. The urine in the Christianson bag appears to be clear. No blood noted. EXTREMITIES: Show no pitting edema, no calf numbness, no Homans' sign. NEUROLOGIC: The patient is alert, awake, responsive, follows commands, moves upper and lower extremity without assistance. Gait examination is not tested. LABORATORY DATA: The patient's lab work from 06/14/2018 are not done. The patient probably refused. CBC from 06/13/2018 was noted. Chemistry from 06/12/2018 was noted. Urine cultures x2 from 06/08/2018 and 06/11/2018 are negative. The patient received 2 units of PRBCs. IMPRESSION: 1. Recurrent persistent gross hematuria secondary to prostatic bleeding, status post fulguration. 2. Acute blood loss anemia secondary to hematuria. 3. Hypotension. 4. Bradycardia. 5. Breakthrough seizures and recurrent seizures secondary to noncompliance with antiepileptic drug. 6. History of bilateral craniotomy and traumatic brain injury. 7. Hypokalemia. 8. Elevated troponin of 0.19, etiology undetermined. 9. Mild rhabdomyolysis. 10. Mild protein malnutrition. 11. History of vitamin B12 deficiency. 12. Proteinuria, pyuria. 13. History of active nicotine, alcohol and marijuana abuse and dependence. 14. Gait dysfunction. 15. Deconditioning. 16. Status post packed red blood cell transfusions x2. 17. Status post cystoscopy with evacuation of clots and fulguration of prostate. 18. Fecal impaction constipation. 19. Probable cystitis with diffuse urinary bladder wall thickening. 20. Deconditioning. 21. Poor hygienic status. 22. Moderately calcified aortic valve with mitral annular calcification. 23. Aortic sclerosis. 24. Severe alcohol use disorder. 25. Encephalopathy. 26. Episodic disorientation. 27. Alcohol-related dementia with alcohol use disorder. 28. Delirium. 29. Incomplete right bundle-branch block. 30. Questionable suicidal ideation on admission. 31. Chronic alcohol use disorder with cognitive limitation. 32. Echolalia. 33. Possible mood disorder versus substance-induced mood disorder. 34. Status post cystoscopy. 35. Abnormal EEG with diffuse slowing throughout the recording, consistent with bilateral cerebral dysfunction. 36. History of hepatitis C. 37. Hypotension. 38. Questionable behavioral disorder. 1. Breakthrough seizures with recurrent witnessed seizure secondary to noncompliance with antiepileptic drugs. 2. Gross hematuria, probably traumatic hematuria. 3. Bradycardia. 4. Hypotension. 5. Acute blood loss anemia probably secondary to hematuria with decreasing hemoglobin and hematocrit. 6. Status post packed red blood cell transfusion. 7. Hypokalemia. 8. Elevated troponin, etiology unclear versus questionable non-ST elevation myocardial infarction. 9. Mild rhabdomyolysis with elevated CPK. 10. Proteinuria, microscopic hematuria, pyuria. 11. History of alcohol, nicotine and polysubstance abuse and dependence with urine drug screen positive for cannabinoids. 12. Deconditioning 13. Gait dysfunction. 14. History of hepatitis C. 15. Hypovitaminosis D. 16. History of prostatic hypertrophy. 17. History of seizure disorder. 18. Dyslipidemia. 19. Hypomagnesemia. 20. Vitamin B12 deficiency. 1. Recurrent witnessed seizure secondary to noncompliance with antiepileptic drugs and breakthrough seizure. 2. Questionable suicidal ideation. 3. Gross hematuria with acute blood loss anemia secondary to hematuria. 4. Bradycardia. 5. Hypotension. 6. Acute blood loss anemia secondary to gross hematuria. 7. Hypokalemia. 8. Elevated troponin, questionable non-ST elevation myocardial infarction. 9. Questionable rhabdomyolysis with elevated CPK. 10. Protein malnutrition and mild hypoalbuminemia. 11. Trace proteinuria, microscopic hematuria, pyuria. 12. Active nicotine, alcohol and marijuana abuse and dependence. 13. History of traumatic brain injury and multiple craniotomy. 14. History of seizure disorder. 15. Status post packed red blood cell transfusion. 16. Facial contusion secondary to fall. 17. Moderately calcified aortic valve. 18. Mild mitral annular calcification and mild tricuspid regurgitation and aortic sclerosis and left ventricular ejection fraction of 57%. 19. Asymptomatic sinus bradycardia. 20. Hematuria and voiding dysfunction. 21. History of hepatitis C. 22. Deconditioning. 23. Gait dysfunction. 24. Possible alcohol related dementia and alcohol use disorder. 25. Possible substance-induced mood disorder. 26. Questionable suicidal ideation. 27. History of vitamin B12 deficiency. 28. Hypovitaminosis D. 29. History of prostatic hypertrophy. 30. Hyperlipidemia. 31. Vitamin B12 deficiency. 1. Traumatic hematuria secondary to Christianson dislodgement. 2. Possible acute blood loss anemia secondary to traumatic hematuria. 3. Alcohol related dementia. 4. Questionable and possible major depressive disorder with a generalized anxiety disorder. 5. Recurrent breakthrough seizures secondary to noncompliance with antiepileptic drugs. 6. Hepatitis C. 7. Deconditioning. 8. Gait dysfunction. 9. History of traumatic brain injury and craniotomy. 10. History of cerebral encephalomalacia. 11. History of seizure disorder. 12. History of left temporal lobe seizure disorder. 13. History of vitamin B12 deficiency. 14. History of hypovitaminosis D and vitamin B12 deficiency. 15. Deconditioning. 16. Poor hygienic status. 1. Recurrent breakthrough seizures versus alcohol withdrawal seizure. 2. Questionable [id number] myocardial infarction with elevated troponin. 3. History of alcohol, nicotine and polysubstance abuse and dependence. 4. History of craniotomy. 5. Status post fall. 6. Normocytic anemia with granulocytosis. 7. Hypokalemia. 8. Hypomagnesemia. 9. Questionable mild rhabdomyolysis with elevated CPK. 10. Microscopic hematuria. 11. History of polysubstance abuse with urine drug screen positive for cannabinoids. 12. Sinus bradycardia. 13. Questionable age indeterminate septal myocardial infarction. 14. History of incomplete right bundle-branch block. 15. Deconditioning. 16. Gait dysfunction. 17. Poor personal hygiene. 18. History of chronic alcohol abuse. 19. Alcohol withdrawal seizure. 20. History of hepatitis C. 21. Nondisplaced nasal bone fracture. 22. Hypotension. 23. Bradycardia. 24. Constipation. 25. Hypovitaminosis D. 26. Vitamin B12 deficiency. 27. Hyperlipidemia. 28. Nicotine dependence. 29. Vitamin B12 deficiency. 1. Recurrent seizures. 2. History of nicotine, alcohol and drug abuse and dependence. 3. Possible alcohol withdrawal seizure. 4. History of traumatic brain injury. 5. History of craniotomy and traumatic brain injury. 6. Possible breakthrough seizure secondary to noncompliance with antiepileptic therapy. 7. Hypotension. 8. Bradycardia. 9. Normocytic anemia. 10. Granulocytosis. 11. Status post fall. 12. Facial contusion and bilateral nasal bone fracture, nondisplaced. 13. Hypomagnesemia. 14. Acute non-ST elevation myocardial infarction with elevated troponin. 15. Mild rhabdomyolysis. 16. Microscopic hematuria. 17. History of active alcohol, nicotine and drug abuse with urine drug screen positive for cannabinoids. 18. Bilateral nasal bone fracture minimally displaced to the right. 19. Bifrontal scalp swelling. 20. Biparietal craniotomy. 21. Cerebral cortical atrophy of the brain with chronic microvascular ischemic disease of the brain. 21. Deconditioning. 22. Gait dysfunction. 23. History of hepatitis C. 1. Recurrent witnessed seizures secondary to noncompliance with antiepileptic drugs. 2. Questionable suicidal ideation. 3. Postictal state. 4. Bradycardia. 5. Hypertension. 6. History of history of traumatic brain injury, history of multiple bilateral craniotomy. 7. Anemia. 8. Granulocytosis. 9. Hypomagnesemia. 10. Microscopic hematuria. 11. History of active nicotine, alcohol and drug use and dependence. 12. Facial contusion secondary to fall. 13. Bilateral nasal bone fracture with displacement to the right. 14. Chronic microvascular ischemic disease of the brain. 15. Bifrontal scalp swelling. 16. Gait dysfunction and recurrent falls. PLAN: At this time, the patient has been ordered repeat labs for the morning. Keppra level is still pending, which was ordered 2 days ago but had never got drawn. Current consultation; Neurology, ENT, Cardiology, Urology, Psychiatry. Referral for TCU ordered. Current medications; Ativan 0.5 mg IV every 6 hours p.r.n., the patient is given a bottle of magnesium citrate, Colace 100 mg three times a day, the patient is on Depakote 125 twice a day, the patient is on Dilaudid 0.5 mg IV every 15 minutes p.r.n. for two doses by anesthesia, Drisdol 50,000 weekly, DuoNeb nebulizer every 6 hours, Flomax 0.4 mg daily, folic acid 1 mg daily, Keppra 500 mg IV every 12 hours, Lipitor 40 mg daily, Lovenox 40 mg subcu daily which will be considered to be stopped because of hematuria, the patient is on magnesium oxide 400 twice a day, MiraLax 17 g twice a day, nicotine patch 21 mg daily, the patient is started on Proscar 5 mg daily by Urology, Protonix 40 mg daily, IV fluid started at 0.9 normal saline at 125 mL an hour, Tylenol 650 mg p.o. suppository every 6 hours p.r.n., thiamine 100 mg p.o. daily, vitamin B12 1000 mcg IM daily, Zofran 4 mg IV every 4 hours p.r.n., the patient is on incentive spirometry, CURT stockings, SCDs, and the head of the bed at 30 degrees, out of bed, physical therapy, occupational therapy. The patient has been ordered to give bath with assistance. The patient was also ordered shaving and haircut with assistance. At present, the patient is to be continued on the above therapeutic intervention with continuation of the Christianson catheter drainage. The patient at present will be continued with above therapeutic intervention. The patient will be continued with physical therapy, occupational therapy, ambulation therapy, gait training which was already ordered. The patient was seen by physical therapist on 06/12/2018. RECOMMENDATIONS: Continue physical therapy, subacute rehab. At present, the patient has not been evaluated since 06/12/2018 by physical therapy. The patient's further management will also be dependent upon the recommendation by physical therapist. Dictated and electronically signed, not read. Stephen Thornton MD [facility]
[2018-06-15] MEDS: Albuterol-Ipratrop 3 mg / 0.5 (3 ml) UD IH SCH ×4 (04:59→20:55)
[2018-06-15 07:26] LABS: BASO # 0.02 K/mm3 (0.0-2.0); BASO % 0.2 % (0.0-3.0); EOS # 0.2 (0.0-0.7); EOS % 2.8 % (1.5-5.0); GRAN # 5.73 (1.4-6.5); GRAN % 66.6 % (50.0-68.0); LYMPH # 1.9 (1.2-3.4); MEAN CELL VOLUME 95.5 fl (80.0-105.0); MEAN CORPUSCULAR HEMOGLOBIN 31.3 pg (25.0-35.0); MEAN CORPUSCULAR HGB CONC 32.7 g/dl (31.0-37.0); MEAN PLATELET VOLUME 8.4 fl (7.0-11.0); MONO # 0.7 (0.1-0.6); MONO % 8.4 % (1.0-6.0); RBC 2.88 10^6/uL (3.5-6.1); RED CELL DISTRIBUTION WIDTH 14.4 % (11.5-14.5); WHITE BLOOD COUNT 8.6 10^3/ul (4.5-11.0)
[2018-06-15] MEDS: Pantoprazole 40 mg EC Tab PO SCH (07:51)
[2018-06-15 08:10] LABS: ALB/GLOB RATIO 1.1 (1.1-1.8); ALBUMIN 2.9 g/dL (3.0-4.8); ALT/SGPT 35 U/L (7-56); AST/SGOT 35 U/L (17-59); BILIRUBIN,DIRECT 0.1 mg/dL (0.0-0.4); BLOOD UREA NITROGEN 10 mg/dL (7-21); CALCIUM 8.3 mg/dL (8.4-10.5); GFR NON-AFRICAN AMERICAN > 60
--- NOTE | 2018-06-15 09:24 | PN ---
DATE: 06/14/2018 IMMEDIATE POSTOP NOTE PREOPERATIVE DIAGNOSES: Gross hematuria and voiding dysfunction. POSTOPERATIVE DIAGNOSES: Gross hematuria and voiding dysfunction. PROCEDURE: Cystoscopy and fulguration of bleeding. The patient is in the recovery room with Christianson catheter. His vital signs are within normal limits. From a urology standpoint, we are going to maintain this Christianson that he may pull out this Christianson that he did before, so we are going to try to get it out as quickly as possible, but I do think it will be best for the patient if we can keep it in for a little while and make sure the urine stays clear. He probably will have some edema. He does have a relatively small prostate and he is only 52 years old. Further urology immediate postop plans as follows and we will maintain the Christianson catheter. Then, a trial void to follow on 06/15/2018. I also is starting the patient on Proscar 5 mg p.o. daily and when he goes home, he should be discharged home on Proscar. Vipin Liu MD
[2018-06-15] MEDS: POLYETHYLENE GLYCOL 3350 17 GM/Dose PACKET PO SCH ×2 (10:37→17:43)
[2018-06-15] MEDS: levETIRAcetam 500mg IVPB 500 MG/100 ML BAG IVPB SCH ×2 (10:38→22:40)
[2018-06-15] MEDS: Divalproex 125 mg EC Sprinkle Cap PO SCH ×2 (10:42→18:00)
[2018-06-15] MEDS: Magnesium Oxide 400 mg Tab UD PO SCH ×2 (10:42→17:43)
[2018-06-15] MEDS: Sodium Chloride 0.9% 1,000 ML IV SCH (10:47)
--- NOTE | 2018-06-15 11:32 | PN ---
DATE: 06/13/2018 UROLOGY NOTE SUBJECTIVE: I received the phone call from the nurse that the patient has had gross hematuria again. His hemoglobin is down from 11.1 to 10.5. See the plans below. PAST MEDICAL AND SURGICAL HISTORY: As listed. No other change. DIAGNOSIS: Recurrent episodes of intermittent clear urine and gross hematuria. ASSESSMENT AND PLAN: In summary, at this point, the patient is on and off with his bleeding, so we are going to do the following; 1. We are going to get a CAT scan now of the abdomen and pelvis without and with IV contrast. 2. We are going to plan for a cystoscopy before discharge home to see if we can assist the patient. So, today is 06/13/2018, we are going to make arrangements for 06/14/2018 in the morning. The patient removed the Christianson catheter. Rule out urethral stricture to see the source of bleeding. The plan is as follows; 1. CT scan of the abdomen and pelvis without and with IV contrast. 2. Cystoscopy to follow. Vipin Liu MD
--- NOTE | 2018-06-15 12:10 | PN ---
DATE: 06/12/2018 See the progress note from 06/11/2018 as well. SUBJECTIVE: The patient is currently resting comfortably. The urine is clear. See the plan listed below. Right now, discharge the patient home. PAST MEDICAL AND SURGICAL HISTORY: As listed on the chart. REVIEW OF SYSTEMS: As listed above. There are no other major changes. MEDICATIONS: See chart. ALLERGIES: SEE CHART. PHYSICAL EXAMINATION: GENERAL: He is in no apparent distress. VITAL SIGNS: Within normal limits, listed in the chart. LUNGS: Clear. HEART: Normal S1, S2. ABDOMEN: Overall soft, nontender. No flank pain appreciated. GENITOURINARY: Normal phallus without discharge. DIAGNOSIS: Gross hematuria, now resolved. ASSESSMENT AND PLAN: In summary, a pleasant gentleman. He also has underlying anemia. I think some of the decrease in the hematocrit is a hydration factor rather than current bleeding. He now has clear urine since I first met him. He had blood in the urine after he pulled the Christianson out with the balloon apparently inflated. So, he does require further workup that would be our recommendation, but it will all be done as an outpatient. The diagnosis is gross hematuria, status post the patient removing the Christianson catheter himself. Plan is as follows. Outpatient followup. He will need labs. He will need followup ultrasound, CAT scans, etc. for imaging. All these can be done as an outpatient. We can follow the patient along. I have given the patient my name, my card, and then we will discuss the further plan. Preferably, we will have the social service technician try to assist us. Most of the Urology workup can be done as outpatient. His hemoglobin and hematocrit has now been stable for the last 24 hours. Further plans can follow. Vipin Liu MD
--- NOTE | 2018-06-15 12:58 | PN ---
DATE: 06/15/2018 CARDIOLOGY FOLLOWUP SUBJECTIVE: No recurrent seizures are happening. The patient is sitting in a chair, eating on his own. PHYSICAL EXAMINATION: VITAL SIGNS: Blood pressure is 117/76, the heart rate is in the 60s. NECK: Negative JVD. LUNGS: Without rales. HEART: Reveals S1, S2. EXTREMITIES: Without edema. LABORATORY DATA: Hemoglobin is 9. Chemistries: BUN and creatinine are unremarkable. IMPRESSION: 1. Recurrent seizures. 2. History of alcoholism. 3. Status post hematuria. 4. History of hepatitis C. 5. Pulmonary hypertension. 6. Chronic obstructive pulmonary disease. PLAN: Given these findings, there are no acute cardiac issues at this time. Javier Reynoso MD
[2018-06-15] MEDS: Ergocalciferol 50,000 Intl Units Cap PO SCH (20:30)
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
[2018-06-16] MEDS: Sodium Chloride 0.9% 1,000 ML IV SCH (01:25)
--- NOTE | 2018-06-16 03:20 | OP ---
PROCEDURE DATE: 06/14/2018 UROLOGY OPERATIVE NOTE PREOPERATIVE DIAGNOSES: Gross hematuria, voiding dysfunction. POSTOPERATIVE DIAGNOSES: Gross hematuria, voiding dysfunction, bleeding from the prostatic bed. See the gross photographs. See the description below. PROCEDURES: Cystoscopy and fulguration of bleeding sites within the prostate. COMPLICATIONS: None. ESTIMATED BLOOD LOSS: Less than 10 mL. FINDINGS: 1. Normal anterior urethra. 2. No strictures. 3. Verumontanum is minimally visually occlusive, only about 2 cm in length, but when the water is turned off on irrigation, still noted there is bleeding on the patient and we could see blood vessel both on the right and left side moving near the bladder neck. There is one specific squirt of the pumper at the bladder neck on the right side of the patient, on the left side of the screen, did see this very well like the pictures. Within the urinary bladder, there is clear efflux and the bladder has no lesions itself. There were no complications. Basically, this should solve the bleeding problem. At the termination, we left the Christianson catheter. INDICATIONS: See history and physical and see the consultation. Very pleasant gentleman who has been in the hospital in the care of Dr. Thornton. He removed his Christianson catheter himself with balloon inflated apparently and there is occult hematuria. It is difficult to tell with his confusion if there was any bleeding before. I do want to mention that today in terms of today procedure, I explained the patient what we are doing, but I also got consent from his mother, [place]. I explained to the patient, the risks, benefits, treatment alternatives. After discussing all other options with the patient and the mother, he is here for the above. PROCEDURE IN DETAIL: After obtaining informed consent from both the patient and mother. The patient was brought to the OR, placed on the table. Routine monitor was placed. Anesthesia provided. Time-out was called to confirm the patient positioning. We introduced cystoscope via urethra. Normal anterior urethra, no strictures. Verumontanum is minimally visually occlusive. What is interesting on the way in with the irrigation going, no obvious things. The prostate looks erythematous. Inspected further the bladder now, there are no obvious lesions. Clear efflux is noted. But as we were doing, we feel a little more blood than would be expected. I will then come back and inspect the prostate more carefully. When I turned off the water, there is more than would be expected. Of note, significantly, there is one particular pumper on the patient's right side right at the bladder neck. We set up the cautery. We then fulgurated. That specific area and some other areas that looked red as if they were bleeding on and off (as if a scab fell off). Further now, we turned off the water, we inspected, there were no more bleeding. The patient tolerated the procedure without any complications. I inserted Christianson catheter via an urethra, inflated the balloon. No traction, just to make sure that bleeding will stop and stay stopped there. Performed a rectal exam, found 20 g prostate, felt smooth. The patient tolerated the procedure well without complications and brought to recovery room in stable condition. Vipin Liu MD
[2018-06-16] MEDS: Albuterol-Ipratrop 3 mg / 0.5 (3 ml) UD IH SCH ×4 (04:45→19:39)
[2018-06-16] MEDS: Pantoprazole 40 mg EC Tab PO SCH (08:32)
--- NOTE | 2018-06-16 09:20 | CP.PCM.PN ---
Subjective - Date & Time of Evaluation Date of Evaluation: 06/16/18 Time of Evaluation: 09:10 - Subjective Subjective: PGY-2 medicine progress note for Dr Thornton No acute events overnight. Patient had urological procedure yesterday - no more hematuria noted. Patient is calm and cooperative. AAOx2 (not oriented to time). Denied pain or discomfort. Objective - Vital Signs/Intake and Output Vital Signs (last 24 hours): Temp Pulse Resp BP Pulse Ox 98.7 F 64 18 111/75 100 06/15/18 14:00 06/15/18 14:00 06/15/18 14:00 06/15/18 14:00 06/15/18 14:00 - Medications Medications: Current Medications Acetaminophen (Tylenol 325mg Tab) 650 mg PO Q6 PRN PRN Reason: TEMP>=99.5F Acetaminophen (Tylenol 650 Mg Supp) 650 mg RC Q6H PRN PRN Reason: TEMP>=99.5F Acetaminophen (Tylenol 325mg Tab) 650 mg PO Q6 PRN PRN Reason: TEMP>=99.5F Acetaminophen (Tylenol 650 Mg Supp) 650 mg RC Q6H PRN PRN Reason: TEMP>=99.5F Albuterol/Ipratropium (Duoneb 3 Mg/0.5 Mg (3 Ml) Ud) 3 ml IH [id number] [facility] Last Admin: 06/16/18 07:28 Dose: 3 ml Atorvastatin Calcium (Lipitor) 40 mg PO DIN [facility] Last Admin: 06/15/18 17:43 Dose: 40 mg Cyanocobalamin (Vitamin B12 1000 Mcg/Ml Inj) 1,000 mcg IM DAILY [facility] Stop: 06/18/18 10:01 Last Admin: 06/15/18 10:39 Dose: 1,000 mcg Divalproex Sodium (Depakote Sprinkles) 125 mg PO BID [facility]; Protocol Last Admin: 06/15/18 10:42 Dose: 125 mg Docusate Sodium (Colace) 100 mg PO TID [facility] Last Admin: 06/15/18 17:43 Dose: 100 mg Ergocalciferol (Drisdol 50,000 Intl Units Cap) 1 cap PO Q7D [facility] Last Admin: 06/15/18 20:30 Dose: 1 cap Finasteride (Proscar) 5 mg PO DAILY [facility] Last Admin: 06/15/18 10:42 Dose: 5 mg Folic Acid (Folic Acid) 1 mg PO DAILY [facility] Last Admin: 06/15/18 10:42 Dose: 1 mg Levetiracetam (Keppra 500mg Ivpb) 500 mg in 100 mls @ 200 mls/hr IVPB Q12 [facility] Last Admin: 06/15/18 22:40 Dose: 200 mls/hr Sodium Chloride (Sodium Chloride 0.9%) 1,000 mls @ 125 mls/hr IV .Q8H [facility] Last Admin: 06/16/18 01:25 Dose: 125 mls/hr Lorazepam (Ativan) 0.5 mg IVP Q6H PRN; Protocol PRN Reason: Anxiety Last Admin: 06/15/18 10:41 Dose: 0.5 mg Magnesium Oxide (Mag-Ox) 400 mg PO BID [facility] Last Admin: 06/15/18 17:43 Dose: 400 mg Nicotine (Nicoderm Cq) 1 patch TD DAILY [facility] Last Admin: 06/15/18 10:43 Dose: 1 patch Ondansetron HCl (Zofran Inj) 4 mg IVP Q4H PRN PRN Reason: Nausea/Vomiting Ondansetron HCl (Zofran Inj) 4 mg IVP ONCE PRN PRN Reason: Nausea/Vomiting Pantoprazole Sodium (Protonix Ec Tab) 40 mg PO 0600 [facility] Last Admin: 06/16/18 08:32 Dose: 40 mg Polyethylene Glycol (Miralax) 17 gm PO BID [facility] Last Admin: 06/15/18 17:43 Dose: 17 gm Tamsulosin HCl (Flomax) 0.4 mg PO DAILY [facility] Last Admin: 06/15/18 10:43 Dose: 0.4 mg Thiamine HCl (Vitamin B1 Tab) 100 mg PO DAILY [facility] Last Admin: 06/15/18 10:42 Dose: 100 mg - Labs Labs: 06/15/18 06:45 06/15/18 06:45 PT 12.1 SECONDS (9.4-12.5) 06/12/18 11:30 INR 1.05 06/12/18 11:30 APTT 36.2 Seconds (25.1-36.5) 06/12/18 11:30 - Additional Findings Additional findings: - Constitutional Appears: Unkempt, Older Than Stated Age, Chronically Ill - Head Exam Head Exam: ATRAUMATIC, NORMAL INSPECTION - Eye Exam Eye Exam: EOMI, Normal appearance, PERRL - ENT Exam ENT Exam: Mucous Membranes Dry - Neck Exam Neck exam: Positive for: Normal Inspection. Negative for: Thyromegaly - Respiratory Exam Respiratory Exam: Clear to Auscultation Bilateral, NORMAL BREATHING PATTERN. absent: Rales, Rhonchi, Wheezes - Cardiovascular Exam Cardiovascular Exam: REGULAR RHYTHM, +S1, +S2. absent: Tachycardia, JVD, Systolic Murmur - GI/Abdominal Exam GI & Abdominal Exam: Normal Bowel Sounds. absent: Tenderness - Extremities Exam Extremities exam: Positive for: normal inspection - Neurological Exam Neurological exam: Alert, AAOx2 (not oriented to time) Additional comments: - Psychiatric Exam Psychiatric exam: Flat Affect - Skin Skin Exam: Normal Color, Warm Additional comments: tattoo's all over body Assessment and Plan - Assessment and Plan (Free Text) Plan: Mr Chambers is a 50-year-old man with a past medical history of alcohol use disorder, history of seizure disorder, Hepatitis C, who was transported by EMS to the Emergency Department for seizure activity: Seizure Disorder -Likely due to home medication non-compliance as phenytoin level was subtherapeutic -Dilantin 1000mg ivp given in ED -Consult neurology, Dr Rolo Perry * Agrees seizure due to med non-compliance; Started him on keppra -CK 632 on admission, downtrending -Home dose is dilantin 200mg po tid, dilantin level was checked and was subtherapeutic -Keppra 500mg ivpb 500mg q12h -EEG * abnormal EEG due to presence of mild diffuse slowing consistent with mild bilateral cerebral dysfunction. No evidence of epileptiform activity. -NPO, seizure precautions NSTEMI -Troponin 0.19 -> 0.18 -Consult dopster, Dr Reynoso * Need to rule out PE as cause of his NSTEMI (however patient pulled out his angio cath) * Anticoagulation inappropriate given his seizure disorder * Cardiac status is stable at this time * Telemetry was discontinued 06/10 -Echo with moderate aortic sclerosis otherwise normal echo -Hold Aspirin 81mg po qd 2/2 to hematuria -Atorvastatin 40mg po din Nasal Fracture -2/2 to fall; No active bleeding -Consult otolaryngology, Dr Garcia * No reduction necessary at this time * Patient should be re-evaluated by ENT in 2 weeks for possible treatment if necessary at that time -CT maxillofacial w/o contrast: * Bilateral nasal bone fractures, minimally displaced to the right. No other calvarial fracture. -CT head w/o contrast: * Bifrontal scalp swelling. No calvarial fracture. No acute intracranial pathology. Age-related changes. No significant interval change. Hematuria, Resolved -Patient agitated and pulled out his echevarria cath with resulting hematuria - however it was unclear if patient had hematuria prior -Consult Urology, Mandie Liu * Performed cystoscopy on 06/15 and found bleeding from prostatic vascular bed which was fulgarated - no complications -Urine Cx negative -Flomax 0.4mg po qd -Finasteride 5mg po qd -Echevarria removed, order for bladder scan if patient retaining and straight cath if necessary Suspect Suicidal Ideations Agitation -Consult Psychiatry, Dr Hernandez * Given patient with NSTEMI and all antipsychotics cause QTc prolongation - observe for now -Ativan 0.5mg po prn -Divalproex 125mg po bid COPD -Saturating well on room air -Levalbuterol 0.63mg IH q6h Alcohol Use Disorder -Vitamin B12 1000mcg IM qd -Folic Acid 1mg po qd -Thiamine 100mg po qd Tobacco Use Disorder -Nicotine 21mg/24hr 1 patch td qd Agitation/Anxiety -Ativan 0.5mg ivp q6h prn for seizure activity/agitation/anxiety PPX -Hold Lovenox 40mg sc qd 2/2 to hematuria -Protonix 40mg po qd -OT/PT/ST
--- NOTE | 2018-06-16 10:17 | PN ---
DATE: 06/15/2018 SUBJECTIVE: The patient is seen in room 567, bed 2. The patient has been getting cleaned up. The patient had a haircut and a shave done by the nursing admin. The patient is awake, responsive. Christianson catheter was discontinued as per the urologist's order. The patient is seen sitting up in the bed. The patient is awake, responsive. The patient is cooperative. PHYSICAL EXAMINATION: VITAL SIGNS: T-max 98.5, pulse 68, blood pressure 117/76, respirations 20, O2 sat 96%. HEENT: Head: Normocephalic, atraumatic. The patient just received the haircut, moody is shaved. Pinkish pale conjunctiva, positive craniotomy noticed. No neck rigidity. CHEST: Kyphosis. LUNGS: Examination shows no crackles, rales or wheezing. Occasional rhonchi upper lung hancock anteriorly. CARDIOVASCULAR: S1, S2, regular rhythm. ABDOMEN: Soft. Positive bowel sound. GENITALIA: Male. RECTAL: Examination is deferred. EXTREMITIES: Shows no pitting edema, no calf tenderness, no Homans' sign. NEUROLOGIC: The patient is alert, awake, responsive, follows command. Moves upper and lower extremities without assistance. Gait examination is not tested. MUSCULOSKELETAL: Examination shows a decreased muscle mass of 20. Gait examination is not tested. DIAGNOSTICS: 06/15, hemoglobin/hematocrit has dropped to 9 and 27.5. Sodium 141, potassium 3.8, chloride 109, CO2 27, anion gap 9, BUN 10, creatinine 0.6, GFR greater than 60, glucose 87, calcium 8.3, phosphorus 4.2, magnesium 2. LFTs are normal. Total protein 5.6, albumin 2.9. IMPRESSION: 1. Status post recurrent breakthrough seizures secondary to noncompliance with antiepileptic drugs. 2. Gross hematuria with acute blood loss anemia secondary to hematuria. 3. Status post packed red blood cell transfusion. 4. Anemia. 5. History of seizure disorder. 6. History of suicidal ideation. 7. Encephalopathy. 8. History of traumatic brain injury with craniotomy. 9. Alcohol use disorder and alcohol dependence. 10. Delirium. 11. Alcohol related dementia. 12. Active nicotine, alcohol and marijuana abuse and dependence. 13. Status post cystoscopy, fulguration of the bleeding site within the prostate. 14. Gross hematuria with voiding dysfunction and hematuria. 15. Prostatic bed bleeding. 16. Fecal impaction, constipation, fecal stasis. 17. Probable cystitis with diffuse urinary bladder wall thickening. 18. Asymptomatic sinus bradycardia. 19. Moderately calcified aortic valve. 20. Mild mitral annular calcification. 21. Aortic sclerosis. 22. Left ventricular ejection fraction of 57%. 23. History of hepatitis C. 24. Abnormal EEG with bilateral cerebral dysfunction. 25. Hypovitaminosis D. 26. Prostatic hypertrophy. 27. Hyperlipidemia. 28. Hypomagnesemia. 1. Recurrent persistent gross hematuria secondary to prostatic bleeding, status post fulguration. 2. Acute blood loss anemia secondary to hematuria. 3. Hypotension. 4. Bradycardia. 5. Breakthrough seizures and recurrent seizures secondary to noncompliance with antiepileptic drug. 6. History of bilateral craniotomy and traumatic brain injury. 7. Hypokalemia. 8. Elevated troponin of 0.19, etiology undetermined. 9. Mild rhabdomyolysis. 10. Mild protein malnutrition. 11. History of vitamin B12 deficiency. 12. Proteinuria, pyuria. 13. History of active nicotine, alcohol and marijuana abuse and dependence. 14. Gait dysfunction. 15. Deconditioning. 16. Status post packed red blood cell transfusions x2. 17. Status post cystoscopy with evacuation of clots and fulguration of prostate. 18. Fecal impaction constipation. 19. Probable cystitis with diffuse urinary bladder wall thickening. 20. Deconditioning. 21. Poor hygienic status. 22. Moderately calcified aortic valve with mitral annular calcification. 23. Aortic sclerosis. 24. Severe alcohol use disorder. 25. Encephalopathy. 26. Episodic disorientation. 27. Alcohol-related dementia with alcohol use disorder. 28. Delirium. 29. Incomplete right bundle-branch block. 30. Questionable suicidal ideation on admission. 31. Chronic alcohol use disorder with cognitive limitation. 32. Echolalia. 33. Possible mood disorder versus substance-induced mood disorder. 34. Status post cystoscopy. 35. Abnormal EEG with diffuse slowing throughout the recording, consistent with bilateral cerebral dysfunction. 36. History of hepatitis C. 37. Hypotension. 38. Questionable behavioral disorder. 1. Breakthrough seizures with recurrent witnessed seizure secondary to noncompliance with antiepileptic drugs. 2. Gross hematuria, probably traumatic hematuria. 3. Bradycardia. 4. Hypotension. 5. Acute blood loss anemia probably secondary to hematuria with decreasing hemoglobin and hematocrit. 6. Status post packed red blood cell transfusion. 7. Hypokalemia. 8. Elevated troponin, etiology unclear versus questionable non-ST elevation myocardial infarction. 9. Mild rhabdomyolysis with elevated CPK. 10. Proteinuria, microscopic hematuria, pyuria. 11. History of alcohol, nicotine and polysubstance abuse and dependence with urine drug screen positive for cannabinoids. 12. Deconditioning 13. Gait dysfunction. 14. History of hepatitis C. 15. Hypovitaminosis D. 16. History of prostatic hypertrophy. 17. History of seizure disorder. 18. Dyslipidemia. 19. Hypomagnesemia. 20. Vitamin B12 deficiency. 1. Recurrent witnessed seizure secondary to noncompliance with antiepileptic drugs and breakthrough seizure. 2. Questionable suicidal ideation. 3. Gross hematuria with acute blood loss anemia secondary to hematuria. 4. Bradycardia. 5. Hypotension. 6. Acute blood loss anemia secondary to gross hematuria. 7. Hypokalemia. 8. Elevated troponin, questionable non-ST elevation myocardial infarction. 9. Questionable rhabdomyolysis with elevated CPK. 10. Protein malnutrition and mild hypoalbuminemia. 11. Trace proteinuria, microscopic hematuria, pyuria. 12. Active nicotine, alcohol and marijuana abuse and dependence. 13. History of traumatic brain injury and multiple craniotomy. 14. History of seizure disorder. 15. Status post packed red blood cell transfusion. 16. Facial contusion secondary to fall. 17. Moderately calcified aortic valve. 18. Mild mitral annular calcification and mild tricuspid regurgitation and aortic sclerosis and left ventricular ejection fraction of 57%. 19. Asymptomatic sinus bradycardia. 20. Hematuria and voiding dysfunction. 21. History of hepatitis C. 22. Deconditioning. 23. Gait dysfunction. 24. Possible alcohol related dementia and alcohol use disorder. 25. Possible substance-induced mood disorder. 26. Questionable suicidal ideation. 27. History of vitamin B12 deficiency. 28. Hypovitaminosis D. 29. History of prostatic hypertrophy. 30. Hyperlipidemia. 31. Vitamin B12 deficiency. 1. Traumatic hematuria secondary to Christianson dislodgement. 2. Possible acute blood loss anemia secondary to traumatic hematuria. 3. Alcohol related dementia. 4. Questionable and possible major depressive disorder with a generalized anxiety disorder. 5. Recurrent breakthrough seizures secondary to noncompliance with antiepileptic drugs. 6. Hepatitis C. 7. Deconditioning. 8. Gait dysfunction. 9. History of traumatic brain injury and craniotomy. 10. History of cerebral encephalomalacia. 11. History of seizure disorder. 12. History of left temporal lobe seizure disorder. 13. History of vitamin B12 deficiency. 14. History of hypovitaminosis D and vitamin B12 deficiency. 15. Deconditioning. 16. Poor hygienic status. 1. Recurrent breakthrough seizures versus alcohol withdrawal seizure. 2. Questionable [id number] myocardial infarction with elevated troponin. 3. History of alcohol, nicotine and polysubstance abuse and dependence. 4. History of craniotomy. 5. Status post fall. 6. Normocytic anemia with granulocytosis. 7. Hypokalemia. 8. Hypomagnesemia. 9. Questionable mild rhabdomyolysis with elevated CPK. 10. Microscopic hematuria. 11. History of polysubstance abuse with urine drug screen positive for cannabinoids. 12. Sinus bradycardia. 13. Questionable age indeterminate septal myocardial infarction. 14. History of incomplete right bundle-branch block. 15. Deconditioning. 16. Gait dysfunction. 17. Poor personal hygiene. 18. History of chronic alcohol abuse. 19. Alcohol withdrawal seizure. 20. History of hepatitis C. 21. Nondisplaced nasal bone fracture. 22. Hypotension. 23. Bradycardia. 24. Constipation. 25. Hypovitaminosis D. 26. Vitamin B12 deficiency. 27. Hyperlipidemia. 28. Nicotine dependence. 29. Vitamin B12 deficiency. 1. Recurrent seizures. 2. History of nicotine, alcohol and drug abuse and dependence. 3. Possible alcohol withdrawal seizure. 4. History of traumatic brain injury. 5. History of craniotomy and traumatic brain injury. 6. Possible breakthrough seizure secondary to noncompliance with antiepileptic therapy. 7. Hypotension. 8. Bradycardia. 9. Normocytic anemia. 10. Granulocytosis. 11. Status post fall. 12. Facial contusion and bilateral nasal bone fracture, nondisplaced. 13. Hypomagnesemia. 14. Acute non-ST elevation myocardial infarction with elevated troponin. 15. Mild rhabdomyolysis. 16. Microscopic hematuria. 17. History of active alcohol, nicotine and drug abuse with urine drug screen positive for cannabinoids. 18. Bilateral nasal bone fracture minimally displaced to the right. 19. Bifrontal scalp swelling. 20. Biparietal craniotomy. 21. Cerebral cortical atrophy of the brain with chronic microvascular ischemic disease of the brain. 21. Deconditioning. 22. Gait dysfunction. 23. History of hepatitis C. 1. Recurrent witnessed seizures secondary to noncompliance with antiepileptic drugs. 2. Questionable suicidal ideation. 3. Postictal state. 4. Bradycardia. 5. Hypertension. 6. History of history of traumatic brain injury, history of multiple bilateral craniotomy. 7. Anemia. 8. Granulocytosis. 9. Hypomagnesemia. 10. Microscopic hematuria. 11. History of active nicotine, alcohol and drug use and dependence. 12. Facial contusion secondary to fall. 13. Bilateral nasal bone fracture with displacement to the right. 14. Chronic microvascular ischemic disease of the brain. 15. Bifrontal scalp swelling. 16. Gait dysfunction and recurrent falls. PLAN: At this time, patient's lab work has been ordered for this morning. The results are still not available for unknown reason. The patient's case is referred to Strike Operations Officer for discharge planning. The patient is seen by physical therapist. According to yesterday's physical therapy note, the patient was unable to participate due to aggression and unwillingness. Physical Therapy previous recommendation was subacute rehab. The patient's current medications are Ativan 0.5 mg IV every 6 hours p.r.n., Colace 100 mg three times a day, Depakote 125 mg twice a day, Drisdol 50,000 weekly, DuoNeb nebulizer every 6 hours, Flomax 0.4 mg daily, folic acid 1 mg daily, Keppra 500 IV every 12, Lipitor 40 mg daily, magnesium oxide 400 twice a day, MiraLax 17 g twice a day, nicotine patch 21 mg daily, Proscar 5 mg daily, Protonix 40 mg daily, IV fluid 0.9 normal saline at 125 ml an hour, thiamine 100 mg p.o. daily, vitamin B12 1000 mcg IM daily, Zofran 4 mg IV every 4 p.r.n. The patient has been ordered SCDs, CURT stockings, seizure precaution. Out of bed, physical therapy, occupational therapy ordered. At this time, the patient's disposition is subacute rehab if accepted by the patient's mother and the patient versus TCU if the patient accepted to TCU versus if the patient is not accepted to TCU, subacute rehab, then the patient will be discharged home under the care of the patient's mother. Dictated and electronically signed, not read. Stephen Thornton MD [facility]
[2018-06-16] MEDS: POLYETHYLENE GLYCOL 3350 17 GM/Dose PACKET PO SCH ×2 (11:04→18:16)
[2018-06-16 11:06] LABS: BASO # 0.03 K/mm3 (0.0-2.0); BASO % 0.5 % (0.0-3.0); EOS # 0.4 (0.0-0.7); EOS % 6.7 % (1.5-5.0); GRAN # 3.49 (1.4-6.5); GRAN % 58.9 % (50.0-68.0); HEMOGLOBIN 10.7 g/dL (14.0-18.0); LYMPH # 1.7 (1.2-3.4); LYMPH % 27.8 % (22.0-35.0); MEAN CELL VOLUME 97.1 fl (80.0-105.0); MEAN CORPUSCULAR HEMOGLOBIN 31.1 pg (25.0-35.0); MEAN PLATELET VOLUME 8.5 fl (7.0-11.0); MONO # 0.4 (0.1-0.6); MONO % 6.1 % (1.0-6.0); RBC 3.44 10^6/uL (3.5-6.1); RED CELL DISTRIBUTION WIDTH 14.5 % (11.5-14.5); WHITE BLOOD COUNT 5.9 10^3/ul (4.5-11.0)
[2018-06-16] MEDS: Magnesium Oxide 400 mg Tab UD PO SCH ×2 (11:06→18:14)
[2018-06-16] MEDS: Divalproex 125 mg EC Sprinkle Cap PO SCH ×2 (11:07→18:13)
[2018-06-16 11:09] LABS: INR 1.04; PARTIAL THROMBOPLASTIN TIME 34.7 Seconds (25.1-36.5)
[2018-06-16 11:11] LABS: ALB/GLOB RATIO 1.2 (1.1-1.8); ALBUMIN 3.7 g/dL (3.0-4.8); ALT/SGPT 36 U/L (7-56); AST/SGOT 40 U/L (17-59); BILIRUBIN,DIRECT 0.2 mg/dL (0.0-0.4); BLOOD UREA NITROGEN 10 mg/dL (7-21); CALCIUM 8.8 mg/dL (8.4-10.5); GFR NON-AFRICAN AMERICAN > 60
[2018-06-16] MEDS ORDERED: DiphenhydrAMINE 50 mg/ml Inj IM ONE ×2 (16:50→17:11)
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
[2018-06-17] MEDS: Albuterol-Ipratrop 3 mg / 0.5 (3 ml) UD IH SCH ×4 (01:37→19:18)
[2018-06-17] MEDS: Pantoprazole 40 mg EC Tab PO SCH (05:04)
[2018-06-17] MEDS: Divalproex 125 mg EC Sprinkle Cap PO SCH ×2 (10:24→18:00)
[2018-06-17] MEDS: Magnesium Oxide 400 mg Tab UD PO SCH ×2 (10:24→18:34)
[2018-06-17] MEDS: POLYETHYLENE GLYCOL 3350 17 GM/Dose PACKET PO SCH ×2 (10:28→18:36)
[2018-06-17] MEDS ORDERED: Pneumococcal 23-Valent Vaccine IM ONE (15:01)
[2018-06-17] MEDS ORDERED: Influenza Vaccine 60 mcg/0.5 mL SYR (4YR UP) IM ONE (15:02)
--- NOTE | 2018-06-17 15:11 | DS ---
FINAL PROGRESS NOTE AND DISCHARGE SUMMARY HISTORY OF PRESENT ILLNESS: The patient is seen in room 567, bed 2. The patient is alert, awake, responsive. I asked the patient today if he is interested in going to rehab and as soon as I asked this question, the patient became very violent and aggressive and angry and he clearly stated that he is not interested in going to rehab and wants to go home. At present, the patient is completely alert, awake, oriented x3. The patient is seen sitting up in the chair in room 567, bed 2. PHYSICAL EXAMINATION: VITAL SIGNS: T-max 98; pulse 82, 64; blood pressure 100/58; respirations 20; O2 sat 97%. HEENT: The patient's head examination shows positive craniotomy. Pinkish pale conjunctivae. Dry oral mucosa. No neck rigidity. CHEST: Kyphosis. LUNGS: Shows no rales, crackles or wheezing. CARDIOVASCULAR: S1, S2. Regular rhythm. No audible murmur, gallop or rub at this time. ABDOMEN: Soft. Positive bowel sound. No hepatosplenomegaly. No organomegaly noted. GENITALIA: Male. No hematuria noted. Genitalia examination is negative. RECTAL: Deferred. EXTREMITY: Shows no pitting edema, no calf tenderness, no Raphael's signs. The patient is able to stand up from the sitting position in the chair without assistance. NEUROLOGIC: At present, there was no neuro deficit noted. MUSCULOSKELETAL: Shows a body mass index of 20. DIAGNOSTICS: None from 06/17/2018. The patient's diagnostic from the admission to yesterday was reviewed. FINAL IMPRESSION, PLAN AND DISCHARGE DIAGNOSES: 1. Recurrent witnessed breakthrough seizures secondary to noncompliance with antiepileptic drugs. 2. Postictal state (resolved). 3. Behavioral disorder with agitated behavior. 4. Poor compliance. 5. Hypotension. 6. Bradycardia. 7. History of traumatic brain injury with craniotomy. 8. Active alcohol, nicotine and marijuana abuse and dependence. 9. Blood loss anemia secondary to gross hematuria. 10. Status post packed red blood cell transfusion. 11. Hypokalemia. 12. Elevated troponin, etiology undetermined versus questionable [id number] myocardial infarction. 13. Mild rhabdomyolysis. 14. Hypomagnesemia. 15. Gait dysfunction. 16. Deconditioning. 17. Hematuria. 18. Bacteriuria. 19. Urine drug screen positive for cannabinoids. 20. Gross hematuria with voiding dysfunction and prostatic bed bleeding. 21. Status post cystoscopy and fulguration of the bleeding site within the prostate. 22. Poor compliance. 23. Noncompliance. 24. Fecal stasis constipation. 25. Sinus bradycardia. 26. Bilateral cerebral dysfunction. Plan at this time, as mentioned above, the patient is refusing to go to subacute rehab, which was informed to the patient's mother, Talya on the phone. In view of the patient's above refusal to go to subacute rehab, we will try to get the patient to Transitional Care Unit if the patient accepted and if the patient agrees, otherwise the patient will be discharged home. All of the above has been explained and discussed with the patient's mother at length and if the patient is discharged home, the patient will be referred to VNA, home health aide, home PT with discharge followup with Dr. Thornton within 1 week. The patient's discharge medications have been revised and updated. The discharge medications are as follows. The patient is on Ecotrin 81 mg daily, Lipitor 40 mg daily or Crestor 10 or 20 mg daily, vitamin B12 at 1000 mcg IM monthly, the patient is started on Depakote 125 mg twice a day, Drisdol 50,000 weekly, Proscar 5 mg daily, folic acid 1 mg daily, Keppra 500 twice a day, magnesium oxide 400 mg twice a day, nicotine patch 21 mg daily, Protonix 40 mg daily, MiraLax 17 g twice a day, Flomax 0.4 mg daily, thiamine 100 mg daily. At present, the patient is refusing to go to subacute rehab, so the patient will be considered for discharge to TCU if accepted and if the patient agrees, otherwise the patient will be discharged home with VNA, home health aide, home PT with discharge followup with Dr. Thornton within 1 week. During this hospitalization, the patient's condition, diagnoses, test results, recommendation by all physicians have been extensively explained to the patient and the patient's mother at length in layman's language. All questions concerned answered. Time spent in the discharge process 45 minutes. Dictated and electronically signed, not read. Stephen Hillary, MD Psychiatric # [id number]
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
[2018-06-18] MEDS: Albuterol-Ipratrop 3 mg / 0.5 (3 ml) UD IH SCH ×4 (01:51→20:00)
[2018-06-18] MEDS: Pantoprazole 40 mg EC Tab PO SCH (05:24)
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
[2018-06-18] MEDS: POLYETHYLENE GLYCOL 3350 17 GM/Dose PACKET PO SCH ×2 (09:52→17:51)
[2018-06-18] MEDS: Divalproex 125 mg EC Sprinkle Cap PO SCH (09:52)
[2018-06-18] MEDS: Magnesium Oxide 400 mg Tab UD PO SCH ×2 (09:53→17:52)
[2018-06-18 14:16] LABS: BASO # 0.02 K/mm3 (0.0-2.0); BASO % 0.4 % (0.0-3.0); EOS # 0.4 (0.0-0.7); EOS % 7.7 % (1.5-5.0); GRAN # 2.83 (1.4-6.5); GRAN % 57.1 % (50.0-68.0); HEMOGLOBIN 9.9 g/dL (14.0-18.0); LYMPH # 1.5 (1.2-3.4); LYMPH % 29.2 % (22.0-35.0); MEAN CELL VOLUME 96.5 fl (80.0-105.0); MEAN CORPUSCULAR HEMOGLOBIN 31.6 pg (25.0-35.0); MEAN CORPUSCULAR HGB CONC 32.8 g/dl (31.0-37.0); MEAN PLATELET VOLUME 8.1 fl (7.0-11.0); MONO # 0.3 (0.1-0.6); MONO % 5.6 % (1.0-6.0); RBC 3.13 10^6/uL (3.5-6.1)
[2018-06-18 14:39] LABS: ALB/GLOB RATIO 1.2 (1.1-1.8); ALBUMIN 3.5 g/dL (3.0-4.8); ALT/SGPT 41 U/L (7-56); AST/SGOT 45 U/L (17-59); BLOOD UREA NITROGEN 14 mg/dL (7-21); CALCIUM 8.7 mg/dL (8.4-10.5); GFR NON-AFRICAN AMERICAN > 60
[2018-06-18] MEDS: Divalproex 500 mg DR(BID formulation) PO SCH (17:52)
[2018-06-18] MEDS: Enoxaparin 40 mg Syringe SC SCH (17:58)
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
[2018-06-19] MEDS: Albuterol-Ipratrop 3 mg / 0.5 (3 ml) UD IH SCH ×4 (02:02→21:44)
[2018-06-19] MEDS: Pantoprazole 40 mg EC Tab PO SCH (05:10)
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
[2018-06-19] MEDS: Divalproex 500 mg DR(BID formulation) PO SCH ×2 (09:19→17:16)
[2018-06-19] MEDS: Magnesium Oxide 400 mg Tab UD PO SCH ×2 (09:19→17:16)
[2018-06-19] MEDS: Enoxaparin 40 mg Syringe SC SCH (09:20)
[2018-06-19] MEDS: POLYETHYLENE GLYCOL 3350 17 GM/Dose PACKET PO SCH ×2 (09:21→17:15)
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
[2018-06-20] MEDS: Albuterol-Ipratrop 3 mg / 0.5 (3 ml) UD IH SCH ×4 (01:46→19:53)
--- NOTE | 2018-06-20 02:23 | PN ---
DATE: 06/19/2018 SUBJECTIVE: The patient is seen in the room 567, bed 2. The patient is sitting up in the bed having breakfast. The patient started to curse and yell at me when I walked into the room and started talking to the patient. The patient started using inappropriate language towards me. The patient is completely alert, awake, responsive and became agitated when I attempted to examine him. The patient was uncooperative. PHYSICAL EXAMINATION: VITAL SIGNS: T-max 97.6, pulse 62, blood pressure 102/59, respiration 20, O2 sat 97%. GENERAL: The patient after a few minutes, calm down and he let me examined him. HEENT: The patient's head examination shows positive craniotomy. Overgrown scalp hair. Poor hygiene. Pinkish pale conjunctivae. Anicteric sclerae. No oropharyngeal lesion. CHEST: Kyphosis. LUNGS: Examination shows occasional rhonchi. No rales, crackles or wheezing. CARDIOVASCULAR: S1, S2, regular rhythm. ABDOMEN: Soft. Positive bowel sounds. No palpable hepatosplenomegaly noted. GENITALIA: Male. No hematuria noted. RECTAL: Examination is deferred. EXTREMITIES: Shows no pitting edema, no calf tenderness, no Homans' sign. MUSCULOSKELETAL: Examination shows a decreased muscle mass of 19. NEUROLOGIC: The patient is alert, awake, responsive, is able to move upper and lower extremities without assistance. Gait examination is not tested. PSYCHIATRIC: Examination as per Psychiatry evaluation. DIAGNOSTICS: From 06/18, reviewed. Keppra level 10.6. Urine cultures negative. The patient received 2 units of PRBC. IMPRESSION: 1. 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 2. Alcohol use disorder. 3. Severe deconditioning and gait dysfunction. 4. Recurrent breakthrough seizures. 5. History of seizure disorder. 6. Severe noncompliance. 7. Nasal fracture. 8. Status post fall. 9. Gross hematuria with acute blood loss anemia secondary to hematuria. 10. Status post cystoscopy and fulguration. 11. Alcohol related dementia. 12. Status post code watts with the patient consulting his mother. 13. Episodic agitation. 14. Questionable depression. 15. Suicidal ideation. 16. Possible mood disorder. 17. Active nicotine, alcohol and marijuana use. 18. Poor insight. 19. Disorientation and confusion. 20. Traumatic brain injury. 21. Possible alcohol-induced mood disorder and anxiety disorder. 22. Hematuria. 23. Voiding dysfunction. 24. Prostatic bed bleeding. 25. Status post cystoscopy and fulguration of the prostatic bleeding site. PLAN: At this time, the patient seen by psychiatrist. Case referred to [facility] Psychiatric Unit hospitalization. The patient seen by Gas Manager. The patient is not cleared by Psychiatry for discharge home. The patient declined an admission to 5-B Psych Unit. The patient's screening initiated for [facility]. The patient is on Ativan 0.5 mg IV every 6 p.r.n. and 2 mg IM every 8 hours p.r.n., Colace 100 mg t.i.d., Depakote increased to 500 mg twice a day, Drisdol 50,000 weekly, DuoNeb nebulizer every 6 hours, Flomax 0.4 mg daily, folic acid 1 mg daily, Geodon 10 mg IM every 8 hours p.r.n., Keppra 500 twice a day, Lipitor 40 mg daily, Lovenox 40 mg subcu daily, magnesium oxide 400 mg twice a day, MiraLax 17 g twice a day, nicotine patch 21 mg daily, Proscar 5 mg daily, Protonix 40 mg daily, Risperdal 1 mg p.o. at bedtime, Risperdal 1 mg b.i.d., Tylenol 650 p.o. or suppository every 6 p.r.n., thiamine 100 mg daily, Zofran 4 mg IV every 4 p.r.n. The patient has been ordered incentive spirometry, CURT stockings, out of bed, physical therapy, occupational therapy. At present, all the concerned services are awaiting the patient's mother power of regulatory attorney, so they can initiate [facility] screening and possible transfer to [facility] Involuntary Unit. Dictated and electronically signed, not read. Stephen Thornton MD
[2018-06-20] MEDS: Pantoprazole 40 mg EC Tab PO SCH (05:44)
[2018-06-20] MEDS: POLYETHYLENE GLYCOL 3350 17 GM/Dose PACKET PO SCH ×2 (10:20→18:06)
[2018-06-20] MEDS: Magnesium Oxide 400 mg Tab UD PO SCH ×2 (10:23→18:05)
[2018-06-20] MEDS: Divalproex 500 mg DR(BID formulation) PO SCH ×2 (10:23→18:04)
[2018-06-20] MEDS: Enoxaparin 40 mg Syringe SC SCH (10:25)
--- NOTE | 2018-06-20 14:52 | CP.PCM.PCO ---
Addendum Addendum: 06/20/18 14:52 Pt's mother has no POA documents, pt refused psych admission, [facility] screening recommended.
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
[2018-06-20 20:01] LABS: PH,URINE 5.5 (4.7-8.0); URINE BILIRUBIN NEGATIVE (NEGATIVE); URINE BLOOD LARGE (NEGATIVE); URINE GLUCOSE (UA) NEGATIVE (NEGATIVE); URINE LEUKOCYTE ESTERASE TRACE Leu/uL (NEGATIVE); URINE PROTEIN NEGATIVE mg/dL (<30 mg/dL); URINE UROBILINOGEN 0.2 E.U./dL (<1 E.U./dL)
[2018-06-20 20:02] LABS: URINE APPEARANCE CLEAR (CLEAR); URINE COLOR LIGHT YELLOW (YELLOW)
[2018-06-20 20:04] LABS: URINE BACTERIA MANY (NEG); URINE EPITHELIAL CELLS 0 - 2 /hpf (0-5); URINE RBC 20 - 25 /hpf (0-2)
--- NOTE | 2018-06-21 00:03 | PN ---
DATE: 06/20/2018 SUBJECTIVE: The patient is seen lying in the bed in room 567, bed 1. The patient was seen in the morning around 9:00 a.m. Overnight nurse's notes were reviewed. The patient yesterday evening was found to be calm and quiet. The patient's case was referred to [facility] screener. [facility] screener has requested a new EKG and urinalysis. The patient also had two soft bowel movements today. MiraLax was discontinued. Colace dose was reduced. The patient's mother was unable to provide the power of health care attorney papers. The patient is presently on continuous video monitoring. PHYSICAL EXAMINATION: VITAL SIGNS: T-max is 98.4; heart rate 64, 63, 58; blood pressure 99/63, 100/68, 92/57; respirations 20; O2 sat 100%. HEENT: The patient's head examination shows positive craniotomy scar. Pinkish pale conjunctivae. Dry oral mucosa. No neck rigidity. CHEST: Kyphosis. LUNGS: Shows occasional rhonchi anteriorly, upper lung hancock. CARDIOVASCULAR: S1 and S2. Regular rhythm. No audible murmur, gallop or rub. ABDOMEN: Soft. Positive bowel sound. No hepatosplenomegaly palpable. GENITALIA: Male. RECTAL: Deferred. EXTREMITY: Shows no pitting edema, no calf tenderness, no Raphael's sign. NEUROLOGICAL: The patient is alert, awake, responsive. Is able to move upper and lower extremity without assistance. Gait examination is not tested. VASCULAR: Palpable pulses. MUSCULOSKELETAL: Shows a decreased muscle mass of 10. The patient was seen yesterday by Physiatry. IMPRESSION AND PLAN: 1. Recurrent seizure and breakthrough seizure secondary to noncompliance with antiepileptic drugs. 2. History of traumatic brain injury and craniotomy. 3. Mood spectrum disorder. 4. Alcohol-related dementia. 5. Possible alcohol-related seizure. 6. Episodic aggressive behavior with behavior disorder. 7. Suicidal ideation. 8. Flat affect. 9. Symptomatic hypotensions. 10. Acute blood loss anemia secondary to hematuria. 11. Status post packed red blood cell transfusion. 12. Elevated troponin, etiology undetermined. 13. Mild rhabdomyolysis with elevated CPK. 14. Hypomagnesemia. 15. Hypokalemia. 16. Mild protein malnutrition and hypoalbuminemia. 17. Hematuria, proteinuria, pyuria, bacteriuria. 18. Active nicotine, alcohol and marijuana abuse and dependence. 19. Deconditioning. 20. Gait dysfunction. 21. Hypovitaminosis D. 22. Prostatic hypertrophy. 23. Seizure disorder. 24. Gross hematuria, voiding dysfunction and prostatic bed bleeding. 25. Status post cystoscopy and fulguration of the prostate bleeding site. 26. Hypomagnesemia. Plan at this time, the patient was requested to have an EKG by the [facility] screeners and urinalysis which was ordered. The patient at present is awaiting [facility] psych screener. Current medications are the patient's Ativan 0.5 IV every 6 will be discontinued. The patient will be maintained on Ativan 2 mg IM every 8 hours p.r.n., Colace 100 mg daily, Depakote 500 twice a day, Drisdol 50,000 units weekly, DuoNeb nebulizer every 6 hours, Flomax 0.4 mg daily, folic acid mg daily, Geodon 10 mg IM every 8 hours p.r.n., Keppra 500 mg p.o. twice a day, Lipitor 40 mg daily, Lovenox 40 mg subcu daily, magnesium oxide 400 mg daily, nicotine patch, magnesium oxide 400 mg twice a day, Nicoderm patch 21 mg daily, Proscar 5 mg daily, Protonix 40 mg daily, Risperdal 1 mg twice a day, Risperdal 2 mg at bedtime, Tylenol 650 mg p.o. suppository every 6 p.r.n., thiamine 100 mg daily, Zofran 4 mg IV every 4 p.r.n., incentive spirometry, oxygen 2 L. EKG ordered, but result pending. Regular diet ordered. CURT davalos, CMs, out of bed, physical therapy, occupational therapy ordered. At present, the patient is awaiting for a psych screener from [facility] for possible transfer to [facility] Involuntary Unit. The patient's overall prognosis is guarded to poor because of the patient's multiple comorbidities and acute decline in the patient's medical and neurological and psychiatric condition. The patient's mother has been updated about the patient's overall guarded to poor prognosis and decompensated and declining health and medical status, neurological status and psychiatric status. The patient's condition has also been extensively explained to the mother by the psychiatrist. Dictated and electronically signed, not read. Stephen Thornton MD
[2018-06-21] MEDS: Albuterol-Ipratrop 3 mg / 0.5 (3 ml) UD IH SCH ×4 (02:56→21:01)
[2018-06-21] MEDS: Pantoprazole 40 mg EC Tab PO SCH (07:06)
[2018-06-21] MEDS: Enoxaparin 40 mg Syringe SC SCH (09:39)
[2018-06-21] MEDS: Divalproex 500 mg DR(BID formulation) PO SCH ×2 (09:40→17:39)
[2018-06-21] MEDS: Magnesium Oxide 400 mg Tab UD PO SCH ×2 (09:41→17:39)
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
--- NOTE | 2018-06-21 12:58 | CARD ---
APPROVED REPORT Date of service: 06/20/2018 EKG Measurement Heart [id number] <Conclusion> Normal sinus rhythm Normal ECG
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
[2018-06-22] MEDS: Albuterol-Ipratrop 3 mg / 0.5 (3 ml) UD IH SCH ×4 (01:19→20:47)
[2018-06-22] MEDS: Pantoprazole 40 mg EC Tab PO SCH (05:48)
[2018-06-22] MEDS: Magnesium Oxide 400 mg Tab UD PO SCH ×2 (09:16→17:59)
[2018-06-22] MEDS: Divalproex 500 mg DR(BID formulation) PO SCH ×2 (09:17→18:04)
[2018-06-22] MEDS: Enoxaparin 40 mg Syringe SC SCH (09:17)
[2018-06-22] MEDS: Ergocalciferol 50,000 Intl Units Cap PO SCH (21:22)
[2018-06-23] MEDS: Albuterol-Ipratrop 3 mg / 0.5 (3 ml) UD IH SCH ×5 (02:41→20:09)
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
--- NOTE | 2018-06-23 07:40 | DS ---
FINAL PROGRESS NOTE AND DISCHARGE SUMMARY HISTORY OF PRESENT ILLNESS: The patient is seen lying in room 567, bed 2. The patient is alert, awake, responsive. Oriented to person and place. Disoriented to day, date, month. PHYSICAL EXAMINATION: VITAL SIGNS: T-max 98.8, pulse 60, blood pressure 111/64, respirations 20, O2 sat 98%. HEENT: Head examination is normocephalic, atraumatic. HEENT examination shows pinkish, pale conjunctivae. Anicteric sclerae. Poor hygiene. CHEST: Kyphosis. LUNGS: Shows no rales, crackles or wheezing. CARDIOVASCULAR: S1 and S2, regular rhythm. ABDOMEN: Soft. Positive bowel sound. No palpable hepatosplenomegaly noted. GENITALIA: Male. RECTAL: Deferred. EXTREMITY: Shows no pitting edema, no calf tenderness, no Homans' sign. NEUROLOGICAL: The patient is alert, awake, oriented x2. Cranial nerves II through XII limited. Gait examination is not tested. MUSCULOSKELETAL: Shows a body mass index of 19.9. VASCULAR: Palpable pulses. DIAGNOSTICS: None. The patient is seen by Psychiatry. Their recommendations noted. As per the nurse's note, the patient was denied by the screener from [facility] for involuntary hospitalization. We are still awaiting for a clearance from Psychiatry for discharge as the patient is not accepted to [facility] Involuntary Psych Unit. FINAL IMPRESSION, PLAN AND DISCHARGE DIAGNOSES: 1. Recurrent seizure with breakthrough seizure secondary to noncompliance with antiepileptic drugs. 2. Suicidal ideation. 3. History of traumatic brain injury. 4. History of alcohol withdrawal, history of alcohol use disorder and alcohol withdrawal seizure. 5. History of alcohol-related dementia. 6. Mild bilateral cerebral dysfunction. 7. Hematuria. 8. Acute blood loss anemia secondary to hematuria. 9. Gross hematuria. 10. Voiding dysfunction. 11. Prostatic bed bleeding. 12. Status post cystoscopy and fulguration of the prostatic bleeding site. 13. Left ventricular ejection fraction of 57%. 14. Moderately calcified aortic valve. 15. Mild mitral annular calcification. 16. Trace to mild tricuspid regurgitation. 17. Moderately calcified aortic valve with aortic sclerosis. 18. History of seizure disorder. 19. History of breakthrough seizure. 20. Dyslipidemia. 21. Hypomagnesemia. 22. Alcohol dependence. 23. Active nicotine, alcohol and marijuana dependence and abuse. DISCHARGE PLAN: As mentioned, the patient has to be discharged to [facility] Involuntary Psych Unit if accepted. If not accepted to [facility] Involuntary Psychiatry Unit, then the patient is to be discharged, transferred to 5B Psychiatry Unit if the patient accepted. If the patient not accepted to 5B Psych Unit, then after Psychiatry clearance, the patient needs to be discharged to subacute rehab if accepted. If the patient is not accepted to subacute rehab, then the patient has to be discharged to TCU if accepted. If the patient is not accepted to TCU, then the patient needs to be discharged home with VNA, home health aide, home PT. DISCHARGE FOLLOWUP: With Dr. Thornton within 1 week. DISCHARGE MEDICATIONS: As per updated ambulatory orders and new scripts. DISCHARGE MEDICATIONS: 1. Aspirin 81 mg p.o. daily. 2. Lipitor 40 mg daily. 3. Vitamin B12 at 1000 mcg once a month. 4. Depakote 500 mg twice a day. 5. Drisdol 50,000 units weekly. 6. Proscar 5 mg daily. 7. Folic acid 1 mg daily. 8. Keppra 500 mg twice a day. 9. Magnesium oxide 400 mg twice a day. 10. Nicotine patch 21 mg daily. 11. Protonix 40 mg daily. 12. MiraLax 17 g twice a day. 13. Flomax 0.4 mg daily. 14. Thiamine 100 mg daily. 15. The patient's Risperdal is only 2 mg a.m. and at bedtime. The patient's discharge medications as per the ambulatory orders, which I just dictated. The new prescriptions are already given and sent to the [facility] if the patient is discharged home. The patient has been discharged as above. Time spent in this discharge process 45 minutes. Dictated and electronically signed, not read. Stephen Thornton MD
[2018-06-23] MEDS: Enoxaparin 40 mg Syringe SC SCH (10:53)
[2018-06-23] MEDS: Magnesium Oxide 400 mg Tab UD PO SCH ×2 (10:54→17:39)
[2018-06-23] MEDS: Divalproex 500 mg DR(BID formulation) PO SCH ×2 (10:55→17:37)
[2018-06-23] MEDS: Pantoprazole 40 mg EC Tab PO SCH (10:55)
--- NOTE | 2018-06-23 21:06 | PN ---
DATE: 06/23/2018 SUBJECTIVE: The patient was seen by Dr. Escobar yesterday. Briefly, the patient was not accepted by [facility]. As per Dr. Escobar, the patient cannot be allowed to go back home and the patient needs supervised living situation. This tag writer evaluated the patient today at the morning time. The patient appears to be sleepy. Poor eye contact. The patient was not able to participate in meaningful conversation. Vital signs are stable. Medications reviewed. The patient is on DuoNeb, Lipitor, Depakote 500 mg twice a day, Colace, Lovenox, Drisdol, Proscar, folic acid, Keppra, Ativan 2 mg IM every 6 hours p.r.n. and most recent was today, magnesium oxide, Nicoderm, Zofran, Protonix, Risperdal 2 mg at the morning time and at the nighttime, Flomax 0.4 mg daily, thiamine and Geodon. Labs reviewed. Most recent was from 06/18/2018. MENTAL STATUS EXAMINATION: The patient appears to be sleepy, easily arousable. Mood described as "okay". Affect was flat. Thought process concrete. Thought content, the patient denied any thoughts of harming himself or others. Does not present to be psychotic. Insight and judgment are impaired. Impulses are unpredictable, but better controlled. IMPRESSION: The patient has traumatic brain injury. The patient has alcohol-related dementia, impulse control disorder. PLAN: The patient pointed few times that mother is the one who is making decisions for him. We will try to obtain power of deputy attorney general if the patient has capacity to do so. At the same time, the patient needs to be continued on current medication, current management. [facility] did not accept the patient as of now. The patient overall is doing little bit better to compare with last week. The patient was not aggressive, not agitated. We will try to obtain power of deputy attorney general. Discussed with case management and the nursing staff. Thank you very much for letting me participate in the care of your patient. Mary Pearson MD [facility] # [id number] [place]
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
[2018-06-24] MEDS: Albuterol-Ipratrop 3 mg / 0.5 (3 ml) UD IH SCH ×4 (03:10→20:00)
[2018-06-24] MEDS: Pantoprazole 40 mg EC Tab PO SCH (06:29)
[2018-06-24 07:58] LABS: BASO # 0.03 K/mm3 (0.0-2.0); BASO % 0.6 % (0.0-3.0); EOS # 0.3 (0.0-0.7); EOS % 5.1 % (1.5-5.0); GRAN # 2.43 (1.4-6.5); GRAN % 47.7 % (50.0-68.0); HEMOGLOBIN 10.7 g/dL (14.0-18.0); LYMPH # 1.8 (1.2-3.4); MEAN CELL VOLUME 95.7 fl (80.0-105.0); MEAN CORPUSCULAR HEMOGLOBIN 30.7 pg (25.0-35.0); MEAN PLATELET VOLUME 8.7 fl (7.0-11.0); MONO # 0.5 (0.1-0.6); MONO % 10.6 % (1.0-6.0); RBC 3.49 10^6/uL (3.5-6.1); WHITE BLOOD COUNT 5.1 10^3/ul (4.5-11.0)
[2018-06-24 08:13] LABS: ALB/GLOB RATIO 1.2 (1.1-1.8); ALBUMIN 3.6 g/dL (3.0-4.8); ALT/SGPT 28 U/L (7-56); AST/SGOT 34 U/L (17-59); BILIRUBIN,DIRECT 0.2 mg/dL (0.0-0.4); BLOOD UREA NITROGEN 16 mg/dL (7-21); CALCIUM 8.9 mg/dL (8.4-10.5); GFR NON-AFRICAN AMERICAN > 60
[2018-06-24] MEDS: Divalproex 500 mg DR(BID formulation) PO SCH ×2 (10:49→18:49)
[2018-06-24] MEDS: Magnesium Oxide 400 mg Tab UD PO SCH ×2 (10:50→18:49)
[2018-06-24] MEDS: Enoxaparin 40 mg Syringe SC SCH (10:51)
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
[2018-06-24] MEDS ORDERED: Divalproex 500 mg DR(BID formulation) PO SCH (22:00)
[2018-06-25] MEDS: Pantoprazole 40 mg EC Tab PO SCH (05:26)
[2018-06-25] MEDS: Albuterol-Ipratrop 3 mg / 0.5 (3 ml) UD IH SCH ×3 (08:43→19:27)
[2018-06-25] MEDS: Divalproex 500 mg DR(BID formulation) PO SCH ×2 (11:17→17:54)
[2018-06-25] MEDS: Magnesium Oxide 400 mg Tab UD PO SCH ×2 (11:19→17:56)
[2018-06-25] MEDS: Enoxaparin 40 mg Syringe SC SCH (11:19)
--- NOTE | 2018-06-25 15:00 | PN ---
DATE: 06/25/2018 ROUTINE FOLLOWUP PROGRESS NOTE See many previously dictated notes. Patient came in, he had hematuria. We initially were concerned that this was secondary to his Christianson catheter being removed by the patient, but subsequently continued bleeding. We had performed a cystoscopy on 06/14/2018. Since then, we have been following the patient. His urine has cleared up and he remained clear. This is a routine followup. PAST MEDICAL AND SURGICAL: No other changes. PHYSICAL EXAMINATION: No change. VITAL SIGNS: Noted. ABDOMEN: Soft, not grossly distended. DIAGNOSIS: Resolved gross hematuria. The urology plan is unchanged. We will continue to monitor and follow along. I did discuss with the patient and I did recommend followup. We will see if the patient is able to return. from urology standpoint, no change. Continue with the current medication. Vipin Liu MD
--- NOTE | 2018-06-25 15:52 | PN ---
DATE: 06/25/2018 SUBJECTIVE: The patient is seen in room 567, bed 2. The patient is seen lying in the bed. The patient is alert, awake, responsive, oriented to person, place. Disoriented to year, date, month. PHYSICAL EXAMINATION: VITAL SIGNS: From 06/25/2018 not documented today. Last vital signs documented is for 10:00 p.m., 06/24/2018, T-max 98, pulse 58, blood pressure 116/71, respiration 18, O2 sat 95%. HEENT: Head examination normocephalic, atraumatic. HEENT examination shows pinkish pale conjunctivae. Anicteric sclerae. No oropharyngeal lesion. No neck rigidity. CHEST: Kyphosis. LUNGS: Shows occasional rhonchi, upper lung hancock anteriorly. CARDIOVASCULAR: S1, S2, regular rhythm. ABDOMEN: Soft. Positive bowel sound. No hepatosplenomegaly noted. LUNGS: Shows no rales, crackles or wheezing. GENITALIA: Male. RECTAL: Deferred. EXTREMITY: Shows no pitting edema, no calf tenderness, no Homans' sign. MUSCULOSKELETAL: Shows a body mass index of 20. NEUROLOGICAL: As mentioned, the patient is alert, awake, oriented x2. Disoriented to year, date, month. Gait examination is not tested. DIAGNOSTICS: On 06/24/2018, WBC 5.1, hemoglobin and hematocrit 10.7 and 33.4, platelet 258. Sodium 140, potassium 4.4, chloride 106, CO2 of 27, anion gap 11, BUN 16, creatinine 0.7, GFR greater than 60, glucose 80, calcium 8.9, phosphorus 4.9, magnesium 2.1. LFTs are normal. The patient's Depakote level was 64, Keppra level was 10.6 on 06/15/2018. Urine cultures are negative x2. The patient received 2 units of PRBC. IMPRESSION AND PLAN: 1. Status post recurrent breakthrough seizure secondary to noncompliance with antiepileptic drug. 2. Alcohol-related alcohol withdrawal seizure. 3. Alcohol-related dementia. 4. History of traumatic brain injury and craniotomy. 5. Chronic active alcohol, nicotine and marijuana abuse and dependence. 6. Severe noncompliance. 7. Alcohol use disorder. 8. Alcohol-related dementia. 9. Delirium. 10. Traumatic brain injury. 11. Hypotension. 12. Normocytic anemia. 13. Status post packed red blood cells transfusion. 14. Gross hematuria with acute blood loss anemia. 15. Elevated troponin, etiology undetermined. 16. Elevated CPK. Questionable mild rhabdomyolysis. 17. Proteinuria, hematuria, pyuria, bacteriuria. 18. Urine drug screen positive for cannabinoids. 19. Voiding dysfunction. 20. Prostatic bed bleeding. 21. Status post cystoscopy and fulguration of the prostatic bleeding site. 22. Abnormal electroencephalogram with diffuse slowing with bilateral cerebral dysfunction. 23. Deconditioning. The patient is to be continued on following medications. The patient was seen by Psychiatry. The patient is not cleared for discharge by Psychiatry, recommending supervised discharge whether to custodial or long-term placement. CURRENT MEDICATIONS: Ativan 2 mg IM every 8 hours p.r.n., Colace 100 mg daily, Depakote 500 mg twice a day and Depakote 500 mg at bedtime, Drisdol 50,000 units weekly, Flomax 0.4 mg daily, Geodon 10 mg IM every 8 hours p.r.n., Keppra 500 mg twice a day, Klonopin 0.5 mg twice a day, Lipitor 40 mg daily, Lovenox 40 mg subcu daily, magnesium oxide 400 mg twice a day, Proscar 5 mg daily, Protonix 40 mg daily, Risperdal 2 mg at bedtime, Risperdal 2 mg daily, Tylenol 650 every 6 hours p.r.n., Zofran 4 mg IV every 4 hours p.r.n. Incentive spirometry every 2 hours, oxygen 2 L continuous, regular diet, occupational therapy, physical therapy has been ordered. At this time, the patient's discharge disposition is at dilemma since the patient is not cleared by Psychiatry for discharge. The patient needs to be discharged to a supervised setting, for example like a custodial or a long-term placement. Dictated and electronically signed, not read. Stephen Thornton MD
--- NOTE | 2018-06-25 17:58 | PN ---
DATE: 06/25/2018 FOLLOWUP NOTE SUBJECTIVE: This personal lines underwriter attempted to speak to the patient today. The patient is deeply sleeping. As per collateral information from the nursing staff, the patient refused to take evening dose of Depakote yesterday because the patient does not like to be disturbed when he is sleeping. There is no agitation, no aggression, no angry outbursts. The patient overall improving. In regards of the patient's disposition and plan, most likely, the patient needs to stay on the medical site in order to have placement into supervised setting as it was recommended. Vital signs seems to be stable. Temperature 97.2, pulse is 67, blood pressure 92/68, respirations 18, oxygen saturation is 99. Medications reviewed. The patient is on Tylenol, DuoNeb, Lipitor, Klonopin which was started yesterday, Depakote 1000 mg at 6:00 p.m. and 500 mg daily, Colace, Lovenox, Drisdol, Proscar, Keppra, Ativan as needed, magnesium oxide 400 mg twice a day, Zofran, Protonix, Risperdal 2 mg at the morning time and at the nighttime for mood stabilization, Geodon as needed. Labs reviewed, most recent was from yesterday. MENTAL STATUS EXAMINATION: This personal lines underwriter was not able to assess mental status today. The patient was deeply sleeping. IMPRESSION: Traumatic brain injury; impulse control disorder, which seems to be under control; alcohol-related dementia. PLAN: Continue current management. Continue current medications. Family meeting needs to be taken place with power of real estate associate attorney, which is the patient's mother. Discharge plan needs to be discussed with the power of real estate associate attorney. This personal lines underwriter does not feel that the patient might benefit from the psychiatric admission because the patient is not participating in groups. The patient pose no imminent danger to self or others. All medications were adjusted on the medical site. Thank you very much for letting me participate in the care of your patient. Should you have any questions, give me a call back. Mary Pearson MD
[2018-06-26] MEDS: Albuterol-Ipratrop 3 mg / 0.5 (3 ml) UD IH SCH ×4 (01:55→20:41)
[2018-06-26] MEDS: Pantoprazole 40 mg EC Tab PO SCH (06:58)
[2018-06-26] MEDS: Magnesium Oxide 400 mg Tab UD PO SCH ×2 (09:06→17:44)
[2018-06-26] MEDS: Divalproex 500 mg DR(BID formulation) PO SCH ×2 (09:06→17:44)
[2018-06-26] MEDS: Enoxaparin 40 mg Syringe SC SCH (09:07)
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
[2018-06-27] MEDS: Albuterol-Ipratrop 3 mg / 0.5 (3 ml) UD IH SCH ×4 (01:26→19:42)
[2018-06-27] MEDS: Pantoprazole 40 mg EC Tab PO SCH (05:15)
--- NOTE | 2018-06-27 08:35 | PN ---
DATE: 06/27/2018 LOCATION: The patient is at [facility] in [place] in room 567, bed 2. SUBJECTIVE: The patient is getting active treatment for seizure disorder, altered mental state, behavioral disorder, chronic obstructive lung disease. The patient has been waiting for placement. The patient is seen this morning. He is resting quietly. The patient has no aggressive behavior at this time. PHYSICAL EXAMINATION: VITAL SIGNS: The patient's blood pressure is 100/57, respirations of 18, the patient's temperature 97.5 and the patient's O2 sat is 97% on room air. HEENT: The patient's head is normocephalic. LUNGS: Clear. HEART: Normal sinus rhythm. S1, S2 present. ABDOMEN: Soft. Liver and spleen not palpable. CAREER REPRESENTATIVE: The patient has no focal deficits. The patient has underlying diagnosis of recurrent seizure, altered mental state, aggressive behavior. MEDICATIONS: The patient's list of medications, the patient is on Ativan 2 mg IM every 8 hours p.r.n. The patient is on Colace. The patient also gets Depakote 2 doses; the patient gets 500 mg daily and 1000 mg daily at different times. The patient is on vitamin D 50,000 units once a week. The patient is also placed on DuoNeb for respiratory treatment. The patient is on Geodon by injection for agitation. The patient gets Keppra 500 mg b.i.d. The patient has Klonopin 0.5 mg b.i.d., Lipitor 40 mg daily. The patient also gets magnesium oxide 400 mg b.i.d, Proscar 5 mg daily, pantoprazole 40 mg daily, Risperdal 2 mg at bedtime and the patient also gets Tylenol for pain. LABORATORY DATA: The patient's recent blood work laboratory studies, the patient's hemoglobin is 10.7, white count is within normal range. The patient's chemistry: The BUN and creatinine are within normal range. The patient's blood sugar is within normal range. The patient's total protein is 6.6. ASSESSMENT AND PLAN: Continue current management. The patient will be kept under observation very closely. Waiting for placement. Connie Morales MD [facility]
[2018-06-27] MEDS: Magnesium Oxide 400 mg Tab UD PO SCH ×2 (09:55→17:06)
[2018-06-27] MEDS: Divalproex 500 mg DR(BID formulation) PO SCH ×2 (09:55→17:07)
--- NOTE | 2018-06-27 14:18 | PN ---
DATE: 06/27/2018 FOLLOWUP NOTE SUBJECTIVE: Family meeting took place yesterday with the social services aide as well as this commercial lines underwriter as well as the patient's mother who pointed to be his power of paint prep technician. The patient's mother was educated about assessment, diagnoses as well as treatment options. Risks, benefits and alternatives of the medications were discussed with the mother. Discharge plan was discussed by social services aide with the mother and mother was appreciative, agreed with the treatment plan as well as discharge plan. Going back to the patient's presentation today, the patient was seen today. The patient presented to be alert, disengaged, did not want to talk to this commercial lines underwriter, was eating with good appetite. The patient reported that he feels "alright." When this commercial lines underwriter tried to evaluate the patient, the patient was eating and urinating at the same time. Notified nurse. Vital signs reviewed. Temperature 97.5, pulse 61, blood pressure 93/63, respirations 18, oxygen saturation is 97. Medications reviewed. The patient is on DuoNeb, Lipitor, Klonopin 0.5 mg b.i.d., Depakote 1500 mg daily. The patient is on Colace, Drisdol, Proscar, folic acid, Keppra, Ativan 2 mg IM every 8 hours as needed for agitation, magnesium oxide, Nicoderm, Zofran, Protonix, Risperdal 2 mg twice a day, thiamine and Geodon. Labs reviewed. Most recent was from 06/24/2018. Reports reviewed. Discussed with the nursing staff today. MENTAL STATUS EXAMINATION: The patient presented to be alert, disengaged, flat affect. Mood described as alright. Thought process concrete. Thought content, the patient was not able to answer if he feels depressed, hopeless or helpless. The patient denied any thoughts of harming himself or others. Insight and judgment seems to be impaired as of now. Impulses are better controlled. IMPRESSION: As per history, traumatic brain injury; as per history, impulse control disorder; as per history, alcohol-related dementia; as per history, alcohol abuse and dependence; as per history, cannabis abuse. PLAN: Continue current management. Continue current medications. The patient pointed his mother to be his power of paint prep technician. The patient tolerates medications well. No side effects observed or reported. Discharge plan and treatment options were discussed with the patient's power of paint prep technician. Valproic acid was 64 on 06/21/2018. The patient is waiting for care home facility placement because based on presentation, this commercial lines underwriter does not feel that the patient will be ever able to take care of himself. Meanwhile, continue current management. This commercial lines underwriter will sign off. Should you have any questions, give me a call back. Thank you very much for letting me participate in the care of your patient. Mary Pearson MD
[2018-06-28] MEDS: Albuterol-Ipratrop 3 mg / 0.5 (3 ml) UD IH SCH ×4 (02:38→20:50)
[2018-06-28] MEDS: Pantoprazole 40 mg EC Tab PO SCH (11:58)
[2018-06-28] MEDS: Divalproex 500 mg DR(BID formulation) PO SCH ×2 (11:58→17:59)
[2018-06-28] MEDS: Mupirocin 2% Ointment 15 GM TUBE TOP SCH ×2 (17:59→18:00)
[2018-06-28] MEDS: Clotrimazole/Betamethasone Cream(15 gm) TOP SCH (22:07)
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
[2018-06-29] MEDS: Albuterol-Ipratrop 3 mg / 0.5 (3 ml) UD IH SCH ×4 (02:40→20:24)
[2018-06-29] MEDS: Divalproex 500 mg DR(BID formulation) PO SCH ×2 (09:19→17:51)
[2018-06-29] MEDS: Clotrimazole/Betamethasone Cream(15 gm) TOP SCH (09:21)
[2018-06-29] MEDS: Mupirocin 2% Ointment 15 GM TUBE TOP SCH ×3 (09:22→17:50)
[2018-06-29] MEDS: Pantoprazole 40 mg EC Tab PO SCH (14:16)
--- NOTE | 2018-06-29 15:59 | PN ---
DATE: 06/29/2018 LOCATION: The patient is seen in room 567, bed 2. SUBJECTIVE: Overnight nurse's notes were reviewed. The patient had no episodes of agitation, restlessness or anger or outburst as per the nurse's notes. The patient stayed calm as per the nurse's notes. The patient was seen and examined in room 567, bed 2. PHYSICAL EXAMINATION: VITAL SIGNS: T-max 98.1, heart rate 77, blood pressure 106/68, respirations 18, O2 sat 98%. HEENT: Head examination shows positive craniotomy. Overgrown scalp hair. Poor hygiene. Pinkish pale conjunctivae. Anicteric sclerae. No oropharyngeal lesion. No neck rigidity. CHEST: Kyphosis. LUNGS: Shows occasional rhonchi, upper lung hancock anteriorly. CARDIOVASCULAR: S1, S2, regular rhythm. ABDOMEN: Soft. Positive bowel sound. GENITALIA: Male. Positive scratch kumari noted in the groin area and scrotum area with some erythema of the scrotum area noted with slight improvement since yesterday. EXTREMITIES: Shows no pitting edema, no calf tenderness, no Homans' sign of the upper and lower extremity. MUSCULOSKELETAL: Shows a decreased muscle mass. NEUROLOGICAL: The patient is alert, awake, oriented to person and place. The patient follows simple command. Motor strength is 5/5 in the upper and lower extremity. Gait examination is not tested. VASCULAR: Palpable pulses. PSYCHIATRIC: As per psychiatrist's evaluation. IMPRESSION AND PLAN: 1. Perineal and scrotal area questionable contact dermatitis secondary to scratching. 2. Recurrent breakthrough seizure disorder with antiepileptic drugs. 3. Alcohol use disorder. 4. Alcohol-related dementia. 5. Impulse control disorder. 6. Questionable behavioral disorder. 7. Active alcohol, nicotine and marijuana and cannabinoid use and dependence. 8. History of traumatic brain injury and craniotomy. 9. History of hepatitis C. 10. Gross hematuria. 11. Acute blood loss anemia. 12. Cystoscopy and fulguration of the prostatic bleeding sites. 13. Constipation. 14. Gait dysfunction. 15. Deconditioning. 16. Questionable history of depression. 17. Alcohol use disorder. 19. Irritable and agitated behavior disorder. 20. History of vitamin B12 deficiency and hypovitaminosis D. Plan at this time, the patient is to be continued on therapeutic intervention and medications as per the MAR of 06/29/2018, which is reviewed. Plan at this time, the patient needs 24-hour care and supervision, which the patient's mother is unable to provide and the patient has not been cleared for discharge by Psychiatry. Psychiatry has advised the patient to be discharged in a supervised setting like long-term placement and half-way placement. The patient's mother is working in collaboration with the Associate Professor Computer Science and employment case manager for discharge planning of the patient. At present, the patient has also been started on Bactroban cream and Lotrisone cream to the perineal and groin area and scrotal area. Dictated and electronically signed, not read. Stephen Thornton MD
[2018-06-30] MEDS: Ergocalciferol 50,000 Intl Units Cap PO SCH (00:17)
[2018-06-30] MEDS: Albuterol-Ipratrop 3 mg / 0.5 (3 ml) UD IH SCH ×4 (02:47→20:13)
[2018-06-30] MEDS: Pantoprazole 40 mg EC Tab PO SCH (06:02)
[2018-06-30] MEDS: Mupirocin 2% Ointment 15 GM TUBE TOP SCH ×3 (11:32→18:58)
[2018-06-30] MEDS: Divalproex 500 mg DR(BID formulation) PO SCH ×2 (11:33→18:57)
[2018-06-30] MEDS: Clotrimazole/Betamethasone Cream(15 gm) TOP SCH ×2 (11:34→18:58)
--- NOTE | 2018-06-30 12:32 | PN ---
DATE: 06/30/2018 SUBJECTIVE: The patient is seen in room 567, bed 2. The patient is sitting up in the chair. The patient is alert, awake, responsive. According to the nurses' note, the patient has been alert, awake, oriented x2. The patient does not appear to be in any distress. No agitated and aggressive behavior noted as per the overnight nurse's note. PHYSICAL EXAMINATION: VITAL SIGNS: T-max 98.2-97.7, heart rate 65-50, blood pressure 138/88, respiration 18, O2 sat 100%. HEAD: Shows positive craniotomy. Pinkish pale conjunctivae. Anicteric sclerae. No oropharyngeal lesion. Poor general hygiene. No neck rigidity. CHEST: Kyphosis. LUNGS: Shows occasional rhonchi in upper lung hancock anteriorly. CARDIOVASCULAR: S1, S2, regular rhythm. ABDOMEN: Soft. Positive bowel sound. No palpable hepatosplenomegaly noted. GENITALIA: Male. RECTAL: Deferred. All the scratch kumari of the groin area and scrotum are completely resolved. No costovertebral angle tenderness noted. EXTREMITIES: Shows no pitting edema, no calf tenderness. No Homans' sign. MUSCULOSKELETAL: Shows a body mass index of 20. NEUROLOGIC: The patient is alert, awake, responsive. According to the nurses' note, the patient has been alert, awake, oriented x2. Motor strength appears to be 5/5. The patient is able to stand up from the chair without any assistance. DIAGNOSTICS: None from 06/30/2018. IMPRESSION AND PLAN: 1. Recurrent breakthrough seizure secondary to noncompliance with antiepileptic medications. 2. Perineal and scrotal area contact dermatitis secondary to scratching. 3. Alcohol use disorder. 4. Alcohol-related dementia. 5. Impulse control disorder. 6. Status post gross hematuria with acute blood loss anemia. 7. History of traumatic brain injury. 8. Active alcohol, nicotine and cannabinoids abuse and dependence. 9. Voiding dysfunction. 10. Prostatic bed bleeding. 11. Status post cystoscopy and fulguration of the prostatic bleeding site. 12. History of seizure disorder. 13. Bilateral cerebral dysfunction on EEG with diffuse slowing. 14. Deconditioning. 15. Gait dysfunction. 16. Left ventricular ejection fraction of 57%. 17. Moderately calcified aortic valve. 18. Mild mitral annular calcification. 19. [id number] tricuspid regurgitation. 20. Asymptomatic bradycardia and hypotension. 21. Normocytic anemia. 22. Acute blood loss anemia secondary to gross hematuria. 23. Status post packed red blood cell transfusion x2. 24. Elevated troponin, etiology undetermined with questionable non-ST elevation myocardial infarction. 25. Pyuria, bacteriuria. 26. Urine drug screen positive for cannabinoids. PLAN: At this time, the patient is being referred to [facility] for long-term placement. Current medications: Ativan 2 mg IM every 8 hours p.r.n., Bactroban cream to the affected area of groin and scrotum three times a day, Colace 100 mg daily, Depakote 500 mg daily at 10:00 a.m. and Depakote 1000 mg at 6:00 p.m., Drisdol 50,000 units weekly, DuoNeb nebulizer every 6 hours, folic acid 1 mg daily, Geodon 10 mg IM every 8 hours p.r.n., Keppra 500 mg twice a day, Klonopin 0.5 mg twice a day which has been ordered by Psychiatry, Lipitor 40 mg daily, Lotrisone cream to the affected area, nicotine patch 21 mg daily, Protonix 40 mg daily, Risperdal 2 mg at bedtime and Risperdal 2 mg daily at 10:00 a.m., Tylenol 650 mg p.o. suppository every 6 hours p.r.n., thiamine 100 mg daily, Zofran 4 mg IV every 4 hours p.r.n. The patient is being ordered physical therapy, occupational therapy, ambulation therapy. At present, the patient is awaiting for long-term placement. Dictated and electronically signed, not read. Stephen Thornton MD
--- NOTE | 2018-06-30 13:59 | CP.PCM.PN ---
<Mimi Daniel - Last Filed: 06/30/18 14:00> Subjective - Date & Time of Evaluation Date of Evaluation: 06/30/18 Time of Evaluation: 13:56 - Subjective Subjective: Podiatry Consult Note for Dr. Emanuel 50 yo male patient, with PMHx of alcohol abuse, Hep C, and seizure disorder, seen and evaluated for elongated dystrophic nails and xerotic skin to plantar aspect of feet bilaterally. Patient is resting comfortably in bed and in NAD. Patient states that the bottom of his feet itch occasionally. Patient is cooperative however unable to obtain full H&P from patient. PMHx: as above ALL: NKDA Objective - Vital Signs/Intake and Output Vital Signs (last 24 hours): Temp Pulse Resp BP Pulse Ox 97.7 F 50 L 18 138/88 100 06/30/18 06:00 06/30/18 06:00 06/30/18 06:00 06/30/18 06:00 06/30/18 06:00 Intake and Output: 06/30/18 06/30/18 06:59 18:59 Intake Total 120 Output Total 600 Balance -480 - Medications Medications: Current Medications Acetaminophen (Tylenol 325mg Tab) 650 mg PO Q6 PRN PRN Reason: TEMP>=99.5F Acetaminophen (Tylenol 650 Mg Supp) 650 mg RC Q6H PRN PRN Reason: TEMP>=99.5F Albuterol/Ipratropium (Duoneb 3 Mg/0.5 Mg (3 Ml) Ud) 3 ml IH [id number] [facility] Last Admin: 06/30/18 13:17 Dose: 3 ml Atorvastatin Calcium (Lipitor) 40 mg PO DIN [facility] Last Admin: 06/29/18 17:51 Dose: 40 mg Betamethasone/Clotrimazole (Lotrisone) 0 gm TOP BID [facility] Last Admin: 06/30/18 11:34 Dose: 1 applic Clonazepam (Klonopin) 0.5 mg PO BID [facility]; Protocol Last Admin: 06/30/18 11:32 Dose: 0.5 mg Divalproex Sodium (Depakote Dr(*Bid*)) 500 mg PO DAILY [facility] Last Admin: 06/30/18 11:33 Dose: 500 mg Divalproex Sodium (Depakote Dr(*Bid*)) 1,000 mg PO 1800 [facility] Last Admin: 06/29/18 17:51 Dose: 1,000 mg Docusate Sodium (Colace) 100 mg PO DAILY [facility] Last Admin: 06/30/18 11:32 Dose: 100 mg Ergocalciferol (Drisdol 50,000 Intl Units Cap) 1 cap PO Q7D [facility] Last Admin: 06/30/18 00:17 Dose: 1 cap Folic Acid (Folic Acid) 1 mg PO DAILY [facility] Last Admin: 06/30/18 11:32 Dose: 1 mg Levetiracetam (Keppra) 500 mg PO BID [facility] Last Admin: 06/30/18 11:33 Dose: 500 mg Lorazepam (Ativan) 2 mg IM Q8 PRN; Protocol PRN Reason: Agitation Last Admin: 06/29/18 00:11 Dose: 2 mg Mupirocin (Bactroban Ointment) 0 gm TOP TID [facility] Last Admin: 06/30/18 11:32 Dose: 1 appl Nicotine (Nicoderm Cq) 1 patch TD DAILY [facility] Last Admin: 06/30/18 11:32 Dose: 1 patch Ondansetron HCl (Zofran Inj) 4 mg IVP Q4H PRN PRN Reason: Nausea/Vomiting Pantoprazole Sodium (Protonix Ec Tab) 40 mg PO 0600 [facility] Last Admin: 06/30/18 06:02 Dose: 40 mg Risperidone (Risperdal Tab) 2 mg PO HS [facility]; Protocol Last Admin: 06/29/18 22:28 Dose: 2 mg Risperidone (Risperdal Tab) 2 mg PO DAILY [facility]; Protocol Last Admin: 06/30/18 11:33 Dose: 2 mg Thiamine HCl (Vitamin B1 Tab) 100 mg PO DAILY [facility] Last Admin: 06/30/18 11:32 Dose: 100 mg Ziprasidone (Geodon Inj) 10 mg IM Q8 PRN; Protocol PRN Reason: Agitation Last Admin: 06/17/18 12:45 Dose: 10 mg - Labs Labs: 06/24/18 07:15 06/24/18 07:15 PT 12.0 SECONDS (9.4-12.5) 06/16/18 10:45 INR 1.04 06/16/18 10:45 APTT 34.7 Seconds (25.1-36.5) 06/16/18 10:45 - Constitutional Appears: Non-toxic, No Acute Distress - Head Exam Head Exam: ATRAUMATIC, NORMOCEPHALIC - Extremities Exam Additional comments: LE focused exam: Vascular: DP/PT palpable, CFT < 3 seconds to all digits, pedal hair diminished, no edema noted to b/l lower extremities Ortho: No tenderness to palpation of b/l lower extremities Neuro: Gross sensation intact, unable to assess for protective sensation Derm: Elongated, mycotic, dystrophic nails to R 2nd and 4th digit, L 3rd, 4th, 5th digit. Xerotic skin noted to plantar feet bilaterally consistent with tinea pedis, interdigital maceration to all webspaces b/l. No open lesions, no clinical signs of infection - Neurological Exam Neurological Exam: Alert, Awake, Oriented x3 Assessment and Plan - Assessment and Plan (Free Text) Assessment: 50 yo male patient, with PMHx of alcohol abuse, Hep C, and seizure disorder, seen and evaluated for elongated dystrophic nails and xerotic skin to plantar aspect of feet bilaterally. Plan: Patient seen and evaluated Patient plan discussed in detail with Dr. Emanuel Afebrile/Absent leukocytosis Betadine paint to webspaces b/l Clotrimazole cream ordered and to be applied to b/l plantar feet BID for tinea pedis Elongated, dystrophic nails debrided with a large nail nipper to patient tolerance without incident. Podiatry to sign off at this time Thank you for the consult <Armando Emanuel - Last Filed: 07/01/18 10:58> Objective - Vital Signs/Intake and Output Vital Signs (last 24 hours): Temp Pulse Resp BP Pulse Ox 98.2 F 56 L 20 92/56 L 97 07/01/18 06:00 07/01/18 06:00 07/01/18 06:00 07/01/18 06:00 07/01/18 06:00 Intake and Output: 07/01/18 07/01/18 06:59 18:59 Intake Total 420 Balance 420 - Medications Medications: Current Medications Acetaminophen (Tylenol 325mg Tab) 650 mg PO Q6 PRN PRN Reason: TEMP>=99.5F Acetaminophen (Tylenol 650 Mg Supp) 650 mg RC Q6H PRN PRN Reason: TEMP>=99.5F Albuterol/Ipratropium (Duoneb 3 Mg/0.5 Mg (3 Ml) Ud) 3 ml IH [id number] [facility] Last Admin: 07/01/18 07:36 Dose: 3 ml Atorvastatin Calcium (Lipitor) 40 mg PO DIN [facility] Last Admin: 06/30/18 18:57 Dose: 40 mg Betamethasone/Clotrimazole (Lotrisone) 0 gm TOP BID [facility] Last Admin: 07/01/18 09:05 Dose: 1 applic Clonazepam (Klonopin) 0.5 mg PO BID [facility]; Protocol Last Admin: 07/01/18 09:04 Dose: 0.5 mg Clotrimazole (Lotrimin 1%) 0 gm TOP BID [facility] Last Admin: 07/01/18 09:05 Dose: 1 applic Divalproex Sodium (Depakote Dr(*Bid*)) 500 mg PO DAILY [facility] Last Admin: 07/01/18 09:04 Dose: 500 mg Divalproex Sodium (Depakote Dr(*Bid*)) 1,000 mg PO 1800 [facility] Last Admin: 06/30/18 18:57 Dose: 1,000 mg Docusate Sodium (Colace) 100 mg PO DAILY [facility] Last Admin: 07/01/18 09:04 Dose: 100 mg Ergocalciferol (Drisdol 50,000 Intl Units Cap) 1 cap PO Q7D [facility] Last Admin: 06/30/18 00:17 Dose: 1 cap Folic Acid (Folic Acid) 1 mg PO DAILY [facility] Last Admin: 07/01/18 09:04 Dose: 1 mg Levetiracetam (Keppra) 500 mg PO BID [facility] Last Admin: 07/01/18 09:04 Dose: 500 mg Lorazepam (Ativan) 2 mg IM Q8 PRN; Protocol PRN Reason: Agitation Last Admin: 06/29/18 00:11 Dose: 2 mg Mupirocin (Bactroban Ointment) 0 gm TOP TID [facility] Last Admin: 07/01/18 09:05 Dose: 1 appl Nicotine (Nicoderm Cq) 1 patch TD DAILY [facility] Last Admin: 07/01/18 09:04 Dose: 1 patch Ondansetron HCl (Zofran Inj) 4 mg IVP Q4H PRN PRN Reason: Nausea/Vomiting Pantoprazole Sodium (Protonix Ec Tab) 40 mg PO 0600 [facility] Last Admin: 07/01/18 06:07 Dose: 40 mg Risperidone (Risperdal Tab) 2 mg PO HS [facility]; Protocol Last Admin: 06/30/18 23:40 Dose: 2 mg Risperidone (Risperdal Tab) 2 mg PO DAILY [facility]; Protocol Last Admin: 07/01/18 09:04 Dose: 2 mg Thiamine HCl (Vitamin B1 Tab) 100 mg PO DAILY [facility] Last Admin: 07/01/18 09:04 Dose: 100 mg Ziprasidone (Geodon Inj) 10 mg IM Q8 PRN; Protocol PRN Reason: Agitation Last Admin: 06/17/18 12:45 Dose: 10 mg - Labs Labs: 06/24/18 07:15 06/24/18 07:15 PT 12.0 SECONDS (9.4-12.5) 06/16/18 10:45 INR 1.04 06/16/18 10:45 APTT 34.7 Seconds (25.1-36.5) 06/16/18 10:45 Attending/Attestation - Attestation I have personally seen and examined this patient.: Yes I have fully participated in the care of the patient.: Yes I have reviewed all pertinent clinical information, including history, physical exam and plan: Yes
[2018-06-30] MEDS: Clotrimazole 1% Cream(30 gm) TOP SCH (18:58)
[2018-07-01] MEDS: Albuterol-Ipratrop 3 mg / 0.5 (3 ml) UD IH SCH ×4 (01:42→19:46)
[2018-07-01] MEDS: Pantoprazole 40 mg EC Tab PO SCH (06:07)
[2018-07-01] MEDS: Divalproex 500 mg DR(BID formulation) PO SCH ×2 (09:04→17:14)
[2018-07-01] MEDS: Mupirocin 2% Ointment 15 GM TUBE TOP SCH ×3 (09:05→17:15)
[2018-07-01] MEDS: Clotrimazole 1% Cream(30 gm) TOP SCH ×2 (09:05→17:15)
[2018-07-01] MEDS: Clotrimazole/Betamethasone Cream(15 gm) TOP SCH ×2 (09:05→17:15)
--- NOTE | 2018-07-01 12:50 | PN ---
DATE: 07/01/2018 SUBJECTIVE: The patient is seen in room 567, bed 2. The patient is out of bed to chair, sitting up in the bed also and sitting up in the chair. Overnight nurse's notes were reviewed. The patient was found to be episodically alert, awake, oriented x2 and alert, awake, oriented x3. There was no documentation by the Nursing for agitated or behavior problem. There was no agitation or irritability noted by the patient. PHYSICAL EXAMINATION: VITAL SIGNS: T-max 98.3, heart rate 67, respirations 20, O2 sat 96%, blood pressure last documented 98/66. GENERAL: The patient is seen sitting up. HEAD: Shows positive bilateral craniotomy. Pinkish pale conjunctiva. Overgrown scalp hair. Poor hygiene. No neck rigidity. No facial asymmetry. CHEST: Kyphosis. LUNGS: Shows occasional rhonchi in upper lung hancock anteriorly. CARDIOVASCULAR: S1, S2, regular rhythm. ABDOMEN: Soft. Positive bowel sound. No palpable hepatosplenomegaly. No palpable organomegaly noted. No costovertebral angle tenderness. GENITALIA: Male. There is no visible lesions of the skin on the perineum or scrotum or penile area noted. EXTREMITIES: Shows no pitting edema, no calf tenderness. No Homans sign. NEUROLOGIC: The patient is awake, oriented x2. Motor strength appears to be 5/5. Gait examination is not tested. VASCULAR: Palpable pulses. PSYCHIATRIC: As per the psychiatrist evaluation. DIAGNOSTICS: None. IMPRESSION AND PLAN: 1. Recurrent breakthrough seizure secondary to noncompliance with antiepileptic medications. 2. Gross hematuria with acute blood loss anemia. 3. Status post packed red blood cell transfusion. 4. Active alcohol, nicotine and cannabinoid abuse. 5. Alcohol-related dementia. 6. Alcohol-use disorder. 7. Impulse-control disorder. 8. Possible behavioral disorder with episodic agitation and irritability. 9. Acute blood loss anemia secondary to hematuria. 10. Hypovitaminosis D. 11. History of vitamin B12 deficiency. 12. Status post cystoscopy and fulguration of the prostatic bleeding areas. 13. History of hepatitis C. 14. History of poor compliance, noncompliance. At present, the patient has been referred to multiple senior care facilities for placement. The patient has been denied by multiple facilities for long-term placement. The patient's mother is aware of above. The patient will be continued on the medications as per the MAR, which was reviewed of 07/01/2018. The patient will be continued on antiepileptic medications and all the medications ordered and recommended by Psychiatry. Dictated and electronically signed, not read. Stephen Thornton MD
[2018-07-02] MEDS: Albuterol-Ipratrop 3 mg / 0.5 (3 ml) UD IH SCH ×4 (01:15→19:52)
[2018-07-02] MEDS: Divalproex 500 mg DR(BID formulation) PO SCH ×2 (11:06→17:42)
[2018-07-02] MEDS: Clotrimazole 1% Cream(30 gm) TOP SCH ×2 (11:07→17:42)
[2018-07-02] MEDS: Mupirocin 2% Ointment 15 GM TUBE TOP SCH ×3 (11:07→17:43)
[2018-07-02] MEDS: Clotrimazole/Betamethasone Cream(15 gm) TOP SCH ×2 (11:07→17:43)
[2018-07-02] MEDS: Pantoprazole 40 mg EC Tab PO SCH (11:08)
--- NOTE | 2018-07-02 12:42 | PN ---
DATE: 07/02/2018 SUBJECTIVE: The patient is in room 567. The patient is seen in room 567, bed 2. Overnight nurse's notes were reviewed. The patient was found to be alert, awake, oriented x2. No adverse events documented according to the nurses' notes. The patient was found to be episodically alert, awake, oriented x2. No agitation of the behavioral disorder was documented by the nurses' notes. PHYSICAL EXAMINATION: VITAL SIGNS: T-max 98.5-97, heart rate 52-73 beats per minute, blood pressure 100/74 to 95/50, respirations 18-20, O2 sat 95-98%. HEENT: The patient's head examination normocephalic, atraumatic. HEENT examination shows poor hygiene. Positive craniotomy. Overgrown scalp hair. Pinkish pale conjunctivae. Anicteric sclerae. No oropharyngeal lesion. NECK: No neck rigidity. CHEST: Kyphosis. LUNGS: Shows no audible rales, crackles or wheezing. CARDIOVASCULAR: S1, S2. Regular rhythm. ABDOMEN: Soft. Positive bowel sound. No organomegaly or hepatosplenomegaly noted. GENITALIA: Male. RECTAL: Deferred. EXTREMITIES: Shows no pitting edema, no calf tenderness, no Homans' sign. MUSCULOSKELETAL: Shows a decreased muscle mass of 20. NEUROLOGICAL: The patient is alert, awake, oriented to person, place. Disoriented to year, date, month, time. Gait examination is not tested. IMPRESSION AND PLAN: 1. Recurrent breakthrough seizure disorder secondary to noncompliance with antiepileptic drugs. 2. History of traumatic brain injury and history of craniotomy. 3. Impulse control disorder. 4. Alcohol use disorder with alcohol related dementia. 5. Gross hematuria. 6. Acute blood loss anemia secondary to gross hematuria. 7. Status post cystoscopy and fulguration of the prostatic bleeding sites. 8. Gross hematuria secondary to prostatic bleeding. 9. Questionable prostatic hypertrophy. 10. Constipation. 11. Hypovitaminosis D. 12. Questionable behavioral disorder. 13. Hyperlipidemia. 14. Questionable contact dermatitis of the inguinal, groin and scrotal area. 15. History of alcohol, nicotine and cannabinoids abuse and dependence. 16. Gait dysfunction. 17. Deconditioning. Plan at this time, the patient is on following medications, Ativan 2 mg IM every 8 hours p.r.n., Bactroban cream to the affected area three times a day, Depakote 500 mg in the morning and the Depakote 1000 mg at 6:00 p.m., Drisdol 50,000 units weekly, DuoNeb nebulizer every 6 hours, folic acid 1 mg daily, Geodon 10 mg IM every 8 hours p.r.n., Keppra 500 mg twice a day, Klonopin 0.5 mg b.i.d., Lipitor 40 mg daily, Lotrisone cream to the affected area, nicotine patch 21 mg daily, Protonix 40 mg daily for GI prophylaxis, Risperdal 2 mg at bedtime and Risperdal 2 mg in the morning, Tylenol 650 mg p.o. suppository every 6 hours, mg daily, Zofran 4 mg IV every 4 hours p.r.n. At present, the patient is to be continued on the above therapeutic intervention. The patient is awaiting for long-term placement and prison placement as the patient is not cleared and not safe for discharge home with mother or independent living. The patient is awaiting for acceptance to long-term placement and prison placement. The patient's mother is aware of the patient's clinical condition and overall neurological, psychiatric and medical decompensation and the patient's need for 24-hour care and supervision. Dictated and electronically signed, not read. Stephen Thornton MD
[2018-07-03] MEDS: Albuterol-Ipratrop 3 mg / 0.5 (3 ml) UD IH SCH ×4 (02:00→20:25)
[2018-07-03] MEDS: Pantoprazole 40 mg EC Tab PO SCH (06:34)
[2018-07-03] MEDS: Divalproex 500 mg DR(BID formulation) PO SCH ×2 (10:22→17:44)
[2018-07-03] MEDS: Mupirocin 2% Ointment 15 GM TUBE TOP SCH ×3 (10:29→17:45)
[2018-07-03] MEDS: Clotrimazole 1% Cream(30 gm) TOP SCH ×2 (10:29→17:45)
[2018-07-03] MEDS: Clotrimazole/Betamethasone Cream(15 gm) TOP SCH ×2 (10:30→17:45)
[2018-07-04] MEDS: Pantoprazole 40 mg EC Tab PO SCH (06:45)
[2018-07-04] MEDS: Albuterol-Ipratrop 3 mg / 0.5 (3 ml) UD IH SCH ×3 (07:27→20:31)
[2018-07-04] MEDS: Divalproex 500 mg DR(BID formulation) PO SCH ×2 (09:31→17:44)
[2018-07-04] MEDS: Clotrimazole 1% Cream(30 gm) TOP SCH ×2 (09:34→17:34)
[2018-07-04] MEDS: Mupirocin 2% Ointment 15 GM TUBE TOP SCH ×3 (09:35→17:35)
[2018-07-04] MEDS: Clotrimazole/Betamethasone Cream(15 gm) TOP SCH ×2 (09:36→17:34)
[2018-07-05] MEDS: Albuterol-Ipratrop 3 mg / 0.5 (3 ml) UD IH SCH ×4 (01:36→20:48)
--- NOTE | 2018-07-05 02:07 | PN ---
DATE: 07/04/2018 SUBJECTIVE: The patient is seen in room 567, bed 2. The patient has been seen lying in the bed. Overnight nurse's notes in the last 24 hours reviewed. The patient was found to be mostly alert, awake, oriented x2. The patient had intermittent episodes of agitation. The patient was screaming at the chart clerk and using profanity and cursing. The patient refused all the labs yesterday which was ordered. The patient even at the time of examination, was also slightly agitated. PHYSICAL EXAMINATION: GENERAL: The patient was seen and examined, lying in the bed. VITAL SIGNS: T-max 98.2, heart rate 68, 63, blood pressure 109/70, 93/54, respiration 18, O2 sat 96%. HEAD: Normocephalic, atraumatic. HEENT examination shows poor hygiene. Positive craniotomy. Positive overgrown scalp hair and pinkish pale conjunctivae. Anicteric sclerae. No oropharyngeal lesion. No neck rigidity. CHEST: Kyphosis. LUNGS: Shows no rales, crackles or wheezing. CARDIOVASCULAR: S1, S2, regular rhythm. ABDOMEN: Soft. Positive bowel sounds. No palpable hepatosplenomegaly noted. GENITALIA: Male. RECTAL: Deferred. EXTREMITIES: Shows no pitting edema, no calf tenderness. No Homans' sign. MUSCULOSKELETAL: Shows a body mass index of 20. Cranial nerves II-XII limited. Gait examination is not tested. VASCULAR: Palpable pulses. DIAGNOSTICS: The patient refused all the lab data. IMPRESSION AND PLAN: 1. Impulse control disorder with episodic agitation and inappropriate language use. 2. Possible behavioral disorder. 3. History of nicotine, alcohol and cannabinoid abuse and dependence. 4. Recurrent breakthrough seizure disorder secondary to noncompliance with antiepileptic drug. 5. Elongated dystrophic and xerotic bilateral lower extremity toenails. 6. Deconditioning. 7. Acute blood loss anemia secondary to gross hematuria. 8. Status post packed red blood cell transfusion x2. 9. Normocytic anemia. 10. Poor compliance. 11. Mild protein malnutrition and mild hypoalbuminemia. 12. Elevated troponin of 0.19, etiology undetermined. 13. Mild rhabdomyolysis with elevated CPK. 14. Hypokalemia. 15. Hematuria, pyuria, bacteriuria. 16. Urine drug screen positive for cannabinoids. 17. Bilateral cerebral dysfunction. 18. Gross hematuria secondary to prostatic bed bleeding. 19. Voiding dysfunction. 20. Status post cystoscopy and fulguration of the prostatic bleeding site. PLAN: At this time, the patient is still awaiting for long-term placement. Updates by the Pastoral Counselor noted. Current medications, Ativan 2 mg IM every 8 hours p.r.n., Bactroban cream to the affected area three times a day, Colace 100 mg daily, Depakote 500 mg at 10 a.m., Depakote 1000 mg at 6 p.m., Drisdol 50,000 units weekly, DuoNeb nebulizer every 6 hours [id number], folic acid 1 mg daily, Geodon 10 mg IM every 8 hours p.r.n., Keppra 500 twice a day, Klonopin 0.5 mg twice a day, Lipitor 40 mg daily, Lotrisone cream to the affected area of the groin, Lotrimin cream to both feet and toes, nicotine patch 21 mg daily, midodrine 2.5 three times a day, Protonix 40 mg daily, Risperdal 2 mg at bedtime and Risperdal 2 mg in the morning, Tylenol 650 mg p.o. suppository every 6 hours p.r.n., thiamine 100 mg p.o. daily, Zofran 4 mg IV every 4 hours p.r.n. Regular diet, out of bed, physical therapy, occupational therapy ordered. The patient was seen by the physical therapist. The last time, the patient was seen by physical therapist on 07/03/2018 because the patient was uncooperative and declined physical therapy. At present, the patient will be continued on the above therapeutic intervention. At present, the patient is awaiting long-term residential placement. Overall prognosis is [id number]. The patient's mother is aware. Dictated and electronically signed, not read. Stephen Thornton MD
[2018-07-05] MEDS: Pantoprazole 40 mg EC Tab PO SCH (06:25)
[2018-07-05] MEDS: Divalproex 500 mg DR(BID formulation) PO SCH ×2 (10:35→17:27)
[2018-07-05] MEDS: Mupirocin 2% Ointment 15 GM TUBE TOP SCH ×3 (10:36→17:19)
[2018-07-05] MEDS: Clotrimazole/Betamethasone Cream(15 gm) TOP SCH ×2 (10:36→17:20)
[2018-07-05] MEDS: Clotrimazole 1% Cream(30 gm) TOP SCH ×2 (10:36→17:20)
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
[2018-07-06] MEDS: Albuterol-Ipratrop 3 mg / 0.5 (3 ml) UD IH SCH ×4 (01:04→20:49)
[2018-07-06] MEDS: Pantoprazole 40 mg EC Tab PO SCH (06:42)
--- NOTE | 2018-07-06 09:01 | PN ---
DATE: 07/03/2018 SUBJECTIVE: The patient is seen lying in the bed in room 567, bed 2. The patient is alert, awake, responsive. When the patient was asked to sit up for the examination, the patient became aggressive and abusive and started cursing. The patient was seen and examined while lying down. The patient was not found to be in any distress. Overnight, nurse's notes were reviewed. The patient was found to be alert, awake, oriented x2 to 3 with intermittent disorientation. The patient was able to ambulate to the bathroom with assistance. According to the night nurses, the patient was not cooperative with their nursing advises. PHYSICAL EXAMINATION: VITAL SIGNS: T-max 98.9 to 97.3, heart rate 89 to 51, blood pressure 131/77 and 88/57. The patient's blood pressure has been also staying low in the last 24 to 48 hours. HEENT: Head examination shows positive craniotomy bilateral. Overgrown scalp hair. Poor hygiene. Positive halitosis. Pinkish pale conjunctivae. Anicteric sclerae. No oropharyngeal lesion. NECK: No neck rigidity. CHEST: Kyphosis. LUNGS: Examination shows no rales, crackles, or wheezing. CARDIOVASCULAR: S1, S2, regular rhythm. ABDOMEN: Soft. Positive bowel sound. GENITALIA: Male. Rectal: Deferred. EXTREMITIES: Shows no pitting edema, no calf numbness, no Raphael's signs. MUSCULOSKELETAL: Shows a body mass index of 20. NEUROLOGIC: The patient is alert, awake, responsive, oriented to person, place. Disoriented to year, date, month, time, day of the week. Gait examination is not tested. LABORATORY DATA: None from today. Last Keppra level was 12, last Depakote level was 64. IMPRESSION AND PLAN: 1. Recurrent breakthrough seizure secondary to noncompliance with antiepileptic drug. 2. Gross hematuria with acute blood loss anemia. 3. Voiding dysfunction. 4. Prostatic bed bleeding. 5. Status post cystoscopy and fulguration of the prostatic bleeding sites. 6. Hypotension. 7. Deconditioning. 8. Gait dysfunction. 9. History of hepatitis C. 10. Elongated dystrophic xerotic bilateral lower extremity toenails. 11. Active alcohol, nicotine, and cannabinoid abuse and dependence. 12. Traumatic brain injury. 13. Impulse control disorder. 14. Alcohol related dementia. 15. History of craniotomy. 16. Hypovitaminosis D. 17. Hyperlipidemia. 18. Hypotension. Plan at this time, the patient will be ordered repeat labs today for evaluation of hypotension. The patient will be ordered Keppra level, Depakote level, CBC, CMP, LFT, magnesium. CURRENT CONSULTATION: 1. Neurology. 2. ENT. 3. Cardiology. 4. Urology. 5. Podiatry. 6. Psychiatry. CURRENT MEDICATIONS: Ativan 2 mg IM every 8 hours p.r.n., Bactroban cream to the affected areas three times a day, Colace 100 mg daily, Depakote 500 mg at 10:00 a.m. and Depakote 1000 mg at 06:00 p.m., Drisdol 50,000 units weekly, DuoNeb nebulizer every 6 hours, folic acid 1 mg daily, Geodon 10 mg IM every 8 hours p.r.n., Keppra 500 twice a day, Klonopin 0.5 mg twice a day, Lipitor 40 mg daily, Lotrisone cream to the affected area, nicotine patch 21 mg daily. The patient started on ProAmatine, midodrine 2.5 mg three times a day, Protonix 40 mg daily, Risperdal 2 mg at nighttime, Risperdal 2 mg at 10:00 a.m., Tylenol 650 p.o., suppository p.r.n., thiamine 100 mg daily, Zofran 4 mg IV every 4 hours p.r.n. Incentive spirometer, regular diet, out of bed to chair, occupational, physical therapy ordered. The patient seen by the community mental health social worker today. The patient's family and the mother to provide requested information by the [facility]. Overall, the patient's prognosis is poor to guarded due to overall medical, neurological and psychiatric decompensation. Above has been explained on multiple time to the patient's mother which she acknowledged the understanding. All questions and concerns answered. Stephen Thornton MD
--- NOTE | 2018-07-06 09:19 | CP.PCM.PN ---
Objective - Vital Signs/Intake and Output Vital Signs (last 24 hours): Temp Pulse Resp BP Pulse Ox 98.0 F 58 L 18 106/64 96 07/06/18 06:00 07/06/18 06:00 07/06/18 06:00 07/06/18 06:00 07/06/18 06:00 - Medications Medications: Current Medications Acetaminophen (Tylenol 325mg Tab) 650 mg PO Q6 PRN PRN Reason: TEMP>=99.5F Acetaminophen (Tylenol 650 Mg Supp) 650 mg RC Q6H PRN PRN Reason: TEMP>=99.5F Albuterol/Ipratropium (Duoneb 3 Mg/0.5 Mg (3 Ml) Ud) 3 ml IH [id number] [facility] Last Admin: 07/06/18 07:29 Dose: 3 ml Atorvastatin Calcium (Lipitor) 40 mg PO DIN [facility] Last Admin: 07/05/18 17:27 Dose: 40 mg Betamethasone/Clotrimazole (Lotrisone) 0 gm TOP BID [facility] Last Admin: 07/05/18 17:20 Dose: Not Given Clonazepam (Klonopin) 0.5 mg PO BID [facility]; Protocol Last Admin: 07/05/18 17:27 Dose: 0.5 mg Clotrimazole (Lotrimin 1%) 0 gm TOP BID [facility] Last Admin: 07/05/18 17:20 Dose: Not Given Divalproex Sodium (Depakote Dr(*Bid*)) 500 mg PO DAILY [facility] Last Admin: 07/05/18 10:35 Dose: 500 mg Divalproex Sodium (Depakote Dr(*Bid*)) 1,000 mg PO 1800 [facility] Last Admin: 07/05/18 17:27 Dose: 500 mg Docusate Sodium (Colace) 100 mg PO DAILY [facility] Last Admin: 07/05/18 10:37 Dose: Not Given Ergocalciferol (Drisdol 50,000 Intl Units Cap) 1 cap PO Q7D [facility] Last Admin: 06/30/18 00:17 Dose: 1 cap Folic Acid (Folic Acid) 1 mg PO DAILY [facility] Last Admin: 07/05/18 10:35 Dose: 1 mg Levetiracetam (Keppra) 500 mg PO BID [facility] Last Admin: 07/05/18 17:27 Dose: 500 mg Lorazepam (Ativan) 2 mg IM Q8 PRN; Protocol PRN Reason: Agitation Last Admin: 06/29/18 00:11 Dose: 2 mg Midodrine (Proamatine) 5 mg PO Q8H [facility] Last Admin: 07/06/18 06:42 Dose: 5 mg Mupirocin (Bactroban Ointment) 0 gm TOP TID [facility] Last Admin: 07/05/18 17:19 Dose: Not Given Nicotine (Nicoderm Cq) 1 patch TD DAILY [facility] Last Admin: 07/05/18 10:38 Dose: 1 patch Ondansetron HCl (Zofran Inj) 4 mg IVP Q4H PRN PRN Reason: Nausea/Vomiting Pantoprazole Sodium (Protonix Ec Tab) 40 mg PO 0600 [facility] Last Admin: 07/06/18 06:42 Dose: 40 mg Risperidone (Risperdal Tab) 2 mg PO DAILY [facility]; Protocol Last Admin: 07/05/18 10:34 Dose: 2 mg Thiamine HCl (Vitamin B1 Tab) 100 mg PO DAILY [facility] Last Admin: 07/05/18 10:34 Dose: 100 mg Ziprasidone (Geodon Inj) 10 mg IM Q8 PRN; Protocol PRN Reason: Agitation Last Admin: 06/17/18 12:45 Dose: 10 mg - Labs Labs: 06/24/18 07:15 06/24/18 07:15 PT 12.0 SECONDS (9.4-12.5) 06/16/18 10:45 INR 1.04 06/16/18 10:45 APTT 34.7 Seconds (25.1-36.5) 06/16/18 10:45
[2018-07-06] MEDS: Mupirocin 2% Ointment 15 GM TUBE TOP SCH ×2 (11:00→14:07)
[2018-07-06] MEDS: Divalproex 500 mg DR(BID formulation) PO SCH (11:25)
[2018-07-06] MEDS: Clotrimazole/Betamethasone Cream(15 gm) TOP SCH ×2 (11:26→11:27)
[2018-07-06] MEDS: Clotrimazole 1% Cream(30 gm) TOP SCH (11:27)
--- NOTE | 2018-07-06 21:04 | PN ---
DATE: 07/06/2018 SUBJECTIVE: The patient was seen in room 567, bed 2. The patient is seen sitting up in the chair. The patient is alert, awake, responsive. Overnight nurses' notes were reviewed. The patient was found to be having episodes of impulsive behavior, was found to be alert, awake, oriented x2. During the morning, the patient was cooperative. The patient needs assistance with care. PHYSICAL EXAMINATION VITAL SIGNS: T-max 98. Heart rate 58, 57, 74. Blood pressure 106/64. Respirations 18. O2 sat 96%. HEAD: Shows positive craniotomy scar. Positive overgrown scalp hair. Pinkish pale conjunctivae. Anicteric sclerae. No oropharyngeal lesion. No neck rigidity. CHEST: Kyphosis. LUNGS: Shows no rales, crackles, or wheezing. CARDIOVASCULAR: S1, S2, regular rhythm. ABDOMEN: Soft. Positive bowel sound. No hepatosplenomegaly noted. GENITALIA: Male. RECTAL: Deferred. EXTREMITIES: Shows no pitting edema, no calf tenderness, no Homans' sign. MUSCULOSKELETAL: Shows a body mass index of 20. NEUROLOGIC: The patient is alert, awake, oriented x2. Cranial nerves II-XII limited. Gait examination is independent versus assistance. DIAGNOSTICS: None because the patient has been refusing lab data and lab work. IMPRESSION: 1. Recurrent breakthrough seizure disorder secondary to noncompliance with antiepileptic drugs. 2. Gross hematuria with acute blood loss anemia. 3. Voiding dysfunction. 4. Prostatic bed bleeding. 5. Status post cystoscopy and fulguration of the prostatic bleeding site. 6. Gait dysfunction. 7. Deconditioning. 8. Poor compliance and noncompliance. 9. Impulse control disorder. 10. History of traumatic brain injury and craniotomy. 11. Alcohol-related dementia. 12. Active alcohol, nicotine, and cannabinoids abuse and dependence. 13. Asymptomatic bradycardia and hypotension. 14. Normocytic anemia. 15. Status post packed red blood cell transfusion. 16. Poor compliance. 17. History of hepatitis C. 18. History of vitamin B12 deficiency. 19. Hypovitaminosis D. 20. Hyperlipidemia. 21. Seizure disorder. 22. Nicotine addiction. PLAN: At this time, the patient is awaiting for long-term placement. The patient's family including the mother is working in collaboration with the Pathology Laboratory Technologist regarding placement to [facility]. CURRENT MEDICATIONS: 1. Ativan 2 mg IM every eight hours p.r.n. 2. Bactroban cream to the affected area three times a day. 3. Colace 100 mg daily. 4. Depakote 500 mg at 10:00 a.m. and Depakote 1000 mg at 06:00 p.m. 5. Drisdol 50,000 units weekly. 6. DuoNeb nebulizer every 6 hours. 7. Folic acid 1 mg daily. 8. Geodon 10 mg IM every eight hours p.r.n. 9. Keppra 500 mg twice a day. 10. Klonopin 0.5 mg twice a day. 11. Lipitor 40 mg daily. 12. Lotrimin cream to the affected areas of toes and feet. 13. Lotrisone cream to the affected area of groin. 14. Nicotine patch 21 mg daily. 15. ProAmatine 5 mg every 8 hours. 16. Protonix 40 mg daily. 17. Risperdal 2 mg daily. 18. Tylenol 650 p.o. suppository every six p.r.n. 19. Thiamine 100 mg daily. 20. Zofran 4 mg IV every four p.r.n. DISPOSITION: The patient's discharge disposition is still in dilemma. The patient is not yet accepted by any facility. Dictated and electronically signed, not read. Stephen Thornton MD
[2018-07-06] MEDS: Ergocalciferol 50,000 Intl Units Cap PO SCH (22:32)
[2018-07-07] MEDS: Albuterol-Ipratrop 3 mg / 0.5 (3 ml) UD IH SCH ×4 (01:10→19:54)
[2018-07-07] MEDS: Pantoprazole 40 mg EC Tab PO SCH (06:07)
[2018-07-07 07:31] LABS: BASO # 0.04 K/mm3 (0.0-2.0); BASO % 0.6 % (0.0-3.0); EOS # 0.4 (0.0-0.7); EOS % 6.5 % (1.5-5.0); GRAN # 3.58 (1.4-6.5); GRAN % 56.3 % (50.0-68.0); HEMOGLOBIN 11.7 g/dL (14.0-18.0); LYMPH # 1.4 (1.2-3.4); LYMPH % 22.4 % (22.0-35.0); MEAN CELL VOLUME 96.5 fl (80.0-105.0); MEAN CORPUSCULAR HEMOGLOBIN 31.5 pg (25.0-35.0); MEAN CORPUSCULAR HGB CONC 32.6 g/dl (31.0-37.0); MEAN PLATELET VOLUME 9.5 fl (7.0-11.0); MONO # 0.9 (0.1-0.6); MONO % 14.2 % (1.0-6.0); RBC 3.72 10^6/uL (3.5-6.1); RED CELL DISTRIBUTION WIDTH 13.7 % (11.5-14.5); WHITE BLOOD COUNT 6.4 10^3/ul (4.5-11.0)
[2018-07-07 08:42] LABS: ALB/GLOB RATIO 1.2 (1.1-1.8); ALBUMIN 3.8 g/dL (3.0-4.8); ALT/SGPT 23 U/L (7-56); AST/SGOT 28 U/L (17-59); BILIRUBIN,DIRECT 0.2 mg/dL (0.0-0.4); BLOOD UREA NITROGEN 19 mg/dL (7-21); CALCIUM 9.1 mg/dL (8.4-10.5); GFR NON-AFRICAN AMERICAN > 60
[2018-07-07] MEDS: Divalproex 500 mg DR(BID formulation) PO SCH ×2 (11:12→18:31)
[2018-07-07] MEDS: Clotrimazole 1% Cream(30 gm) TOP SCH ×2 (11:13→17:08)
[2018-07-07] MEDS: Mupirocin 2% Ointment 15 GM TUBE TOP SCH ×3 (11:13→18:31)
[2018-07-07] MEDS: Clotrimazole/Betamethasone Cream(15 gm) TOP SCH ×2 (11:13→17:08)
[2018-07-08] MEDS: Albuterol-Ipratrop 3 mg / 0.5 (3 ml) UD IH SCH ×4 (01:57→21:27)
[2018-07-08] MEDS: Divalproex 500 mg DR(BID formulation) PO SCH ×2 (10:11→17:20)
[2018-07-08] MEDS: Clotrimazole/Betamethasone Cream(15 gm) TOP SCH (10:13)
[2018-07-08] MEDS: Clotrimazole 1% Cream(30 gm) TOP SCH ×2 (10:13→17:20)
--- NOTE | 2018-07-08 16:06 | PN ---
DATE: 07/08/2018 SUBJECTIVE: The patient is seen. The patient is still in room 567 bed 2. Overnight nurse's notes were reviewed. The patient slept well without any episodes of agitation, behavioral problems or yelling, screaming, cursing. The patient's overnight and the last 24 hours nurse's notes were reviewed. PHYSICAL EXAMINATION: VITAL SIGNS: T-max 98.4, pulse 65, blood pressure 104/68, respirations 18, O2 sat 99%. HEAD: The patient's head examination shows positive bilateral craniotomy. Overgrown scalp hair. EYES: Pinkish pale conjunctivae. Anicteric sclerae. THROAT: No oropharyngeal lesion. NECK: No neck rigidity. CHEST: Kyphosis. LUNGS: Examination shows no audible rales, crackles or wheezing. CARDIOVASCULAR: S1 and S2, regular rhythm. Questionable soft systolic murmur left sternal border, right second intercostal space, left second intercostal space. ABDOMEN: Soft. Positive bowel sounds. No palpable hepatosplenomegaly noted. GENITALIA: Male. RECTAL: Deferred. EXTREMITIES: Shows no pitting edema, no calf tenderness, no Homans' sign. NEUROLOGIC: The patient is alert, awake, oriented x1 to 2. Motor strength, the patient is able to move upper and lower extremity without assistance. Gait examination is not tested. MUSCULOSKELETAL: As per the BMI on the [employer]. IMPRESSION: 1. Recurrent breakthrough seizure disorder secondary to noncompliance with antiepileptic drugs. 2. Gross hematuria. 3. Acute blood loss anemia secondary to gross hematuria. 4. Status post packed red blood cell transfusion. 5. Prostatic bed bleeding. 6. Status post cystoscopy and fulguration of the prostatic bleeding site. 7. Hypotension. 8. Bradycardia. 9. Behavioral disorder. 10. Impulse control disorder. 11. Alcohol-related dementia. 12. Active nicotine, alcohol and cannabinoids abuse and dependence. 13. Gait dysfunction. 14. Deconditioning. 15. History of vitamin B12 deficiency. 16. History of hepatitis C. 17. History of hypovitaminosis D. PLAN: At this time, the patient is to be continued on the therapeutic intervention as per the MAR today, which was reviewed. At present, the patient is still awaiting for a long-term senior care placement as the patient required 24 hour care and supervision with activities of daily living and also the patient requires 24 hours care and supervision secondary to impulse control disorder and behavioral issue. DISPOSITION: The patient is still not accepted to any of the long-term placement facility. Dictated and electronically signed, not read. Stephen Thornton MD
[2018-07-09] MEDS: Albuterol-Ipratrop 3 mg / 0.5 (3 ml) UD IH SCH ×4 (03:00→19:57)
[2018-07-09] MEDS: Pantoprazole 40 mg EC Tab PO SCH (05:08)
--- NOTE | 2018-07-09 09:05 | PN ---
DATE: 07/07/2018 SUBJECTIVE: The patient is seen in room 567, bed 2. The patient's overnight nurse's notes were reviewed. The patient stayed calm. There was no agitation or behavioral issues noted as per the nurse's notes. The patient's appetite is normal. The patient does not offer any specific complaint. REVIEW OF SYSTEMS: Fourteen system review was done, pertinent positive and negative dictated above. PHYSICAL EXAMINATION: VITAL SIGNS: The patient's vital signs as of 07/07/2018, T-max is 97.5-97.8; heart rate 74; blood pressure 115/74, 93/62; respirations 18; O2 sat 97%. HEENT: Head examination shows positive bilateral craniotomy. Positive overgrown scalp hair. Pinkish pale conjunctivae. No oropharyngeal lesion. NECK: No neck rigidity. CHEST: Kyphosis. LUNGS: Shows no rales, crackles or wheezing. CARDIOVASCULAR: S1, S2. Regular rhythm. ABDOMEN: Soft. No palpable hepatosplenomegaly noted. GENITALIA: Male. RECTAL: Deferred. EXTREMITIES: Shows no pitting edema, no calf tenderness, no Raphael's signs. SKIN: The rash which was noted around the groin area and scrotal area has resolved and there are no scratch kumari noted today. MUSCULOSKELETAL: Shows muscle mass. Gait examination is independent versus assisted. With intermittent unsteadiness noted, regarding which the patient has been advised to call for assistance when he needs to ambulate. DIAGNOSTICS: On 07/07/2018, which the patient finally agreed to the lab work today, WBC 6.4, hemoglobin and hematocrit 11.7 and 36, platelets 173. Sodium 143, potassium 4.3, chloride 106, CO2 of 29, anion gap not noted, BUN 19, creatinine 0.8, glucose 84, calcium 9.1, phosphorus 5, magnesium 1.7. Liver function tests are within normal limit. IMPRESSION AND PLAN: 1. Recurrent breakthrough seizures secondary to noncompliance with antiepileptic drugs. 2. Gross hematuria. 3. Acute blood loss anemia secondary to gross hematuria. 4. Voiding dysfunction. 5. Prostatic bed bleeding. 6. Status post cystoscopy and fulguration of the prostatic bleeding site. 7. Status post packed red blood cell transfusion. 8. Active nicotine, alcohol and cannabinoids abuse and dependence. 9. Questionable and possible behavioral disorder with episodic agitation and restlessness and uncooperativeness with impulse control disorder. 10. Alcohol-related dementia. 11. History of traumatic brain injury, status post bilateral craniotomy. 12. Minimally displaced bilateral nasal bone fracture. 13. Status post fall. 14. Gait dysfunction. 15. History of hepatitis C. 16. Hypovitaminosis D. 17. History of vitamin B12 deficiency. 18. History of hyperlipidemia. 19. Hyperphosphatemia. 20. Hypotension and bradycardia. 21. Deconditioning. 22. Possible prostatic hypertrophy. Plan at this time, the patient is to be continued on the therapeutic intervention as per the MAR. The patient's family including the mother is in the process of working with the Instrumentation And Control Technician Department regarding the patient's long-term placement and fdc placement as the patient was found ineligible for discharge home and live alone as per Psychiatry recommendations, so the patient is in the process of being evaluated for a long-term placement and fdc placement. The patient's medications will be continued as per the MAR of today, which was reviewed. The patient at present is being followed by Psychiatry. Dictated and electronically signed, not read. Stephen Thornton MD
[2018-07-09] MEDS: Divalproex 500 mg DR(BID formulation) PO SCH ×2 (09:34→17:35)
[2018-07-09] MEDS: Clotrimazole 1% Cream(30 gm) TOP SCH ×2 (10:00→17:37)
--- NOTE | 2018-07-09 12:11 | PN ---
DATE: 07/09/2018 SUBJECTIVE: The patient is in room 567, bed 2. Overnight nurse's notes were reviewed. The patient was found to be uncooperative and not complying with the nursing recommendations. The patient refused medication. The patient was advised not to ambulate independently but was found to have unsteady wobbly gait by the nurses. The patient was again reinforced multiple times by me that the patient should ask for assistance with getting out of bed to bathroom and ambulation due to gait dysfunction. PHYSICAL EXAMINATION: GENERAL: The patient appears to be uncooperative and gets agitated. VITAL SIGNS: T-max 98.3, pulse 64, blood pressure 106/56, respirations 20, O2 sat 98%. HEENT: Head: Normocephalic, atraumatic. HEENT examination shows pinkish pale conjunctivae. Anicteric sclerae. Positive bilateral craniotomy noted. Overgrown scalp hair noted. No neck rigidity. CHEST: Kyphosis. LUNGS: Examination shows no rales, crackles or wheezing. CARDIOVASCULAR: S1, S2, regular rhythm. ABDOMEN: Soft. Positive bowel sound. GENITALIA: Male. RECTAL: Examination is deferred. SKIN: No groin or genitalia rashes noted. EXTREMITIES: Shows no pitting edema, no calf tenderness, no Homans' sign. NEUROLOGIC: The patient is alert, awake, responsive, is able to move upper and lower extremities without assistance. Gait examination is not tested. Cranial nerves II-XII limited. MUSCULOSKELETAL: Examination shows a decreased muscle mass. DIAGNOSTICS: None from today. Diagnostics from yesterday were reviewed. IMPRESSION: 1. Impulse control disorder with behavioral disorder and severe noncompliance and poor compliance. 2. Recurrent breakthrough seizure secondary to noncompliance with antiepileptic drugs. 3. Gross hematuria. 4. Acute blood loss anemia. 5. Status post packed red blood cell transfusion. 6. Status post cystoscopy. 7. Voiding dysfunction. 8. Prostatic bed bleeding. 9. Status post cystoscopy and status post fulguration of the prostatic bleeding site. 10. Alcohol-related dementia. 11. History of active nicotine, alcohol and cannabinoids abuse and dependence. 12. History of hepatitis C. 13. History of poor compliance. 14. History of recurrent seizure. 15. History of hyperlipidemia. 16. History of hypovitaminosis D. 17. History of vitamin B12 deficiency. At present, the patient is to be continued on the therapeutic intervention as per the MAR, which was reviewed of today. The patient is still awaiting acceptance by long-term facility and awaiting shelter placement. The patient will be continued on the above therapeutic intervention as the MAR. Dictated and electronically signed, not read. Stephen Thornton MD
[2018-07-09 23:07] VITALS: RESP 18
[2018-07-10] MEDS: Albuterol-Ipratrop 3 mg / 0.5 (3 ml) UD IH SCH ×3 (01:14→13:20)
[2018-07-10] MEDS: Pantoprazole 40 mg EC Tab PO SCH (06:22)
[2018-07-10] MEDS: Divalproex 500 mg DR(BID formulation) PO SCH (09:28)
[2018-07-10] MEDS: Clotrimazole 1% Cream(30 gm) TOP SCH (13:37)
[2018-07-10 14:48] VITALS: BP 93/56; PULSE 63; TEMP 98.2; O2SAT 100
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
--- NOTE | 2018-07-15 20:08 | PQF ---
PROVIDER RESPONSE TEXT: Defer to cardiology for clarification REVIEWER QUERY TEXT: Conflicting Documentation Clarification A single mention or documentation of multiple diagnoses for the same clinical presentation appears in the record. Please clarify the diagnosis/diagnoses. Please also document if the condition is: -- Confirmed and current -- Confirmed, treated and resolved -- Ruled out -- Other, please specify The patient's Clinical Indicators include: Query created by: Angeli Mcgee on 07/13/2018 10:15 AM Electronically signed by: Stephen Thornton MD 07/15/2018 8:05 PM
== END 2018-07-10 16:26 | DRG 988 ==
LOC: ED 18:04 → ERH 19:55 → 2RSO 06-09 17:51 → 5RNO 06-10 13:49
PROVIDERS: ADMIT Internal Medicine; ATTEND Internal Medicine
PROC: 30233N1 Transfusion of Nonautologous Red Blood Cells into Peripheral Vein, Percutaneous Approach (ICD-10-PCS; 2018-06-11)
PROC: 0TJB8ZZ Inspection of Bladder, Via Natural or Artificial Opening Endoscopic (ICD-10-PCS; 2018-06-14)
PROC: 0V508ZZ Destruction of Prostate, Via Natural or Artificial Opening Endoscopic (ICD-10-PCS; principal; 2018-06-14 10:57)
DX: G40.509 Epileptic seizures related to external causes, not intractable, without status epilepticus (principal); F10.27 Alcohol dependence with alcohol-induced persisting dementia; R45.851 Suicidal ideations; D62 Acute posthemorrhagic anemia; M62.82 Rhabdomyolysis; F10.231 Alcohol dependence with withdrawal delirium; E44.1 Mild protein-calorie malnutrition; G93.40 Encephalopathy, unspecified; S37.30XA Unspecified injury of urethra, initial encounter; F01.51 Vascular dementia, unspecified severity, with behavioral disturbance; F02.81 Dementia in other diseases classified elsewhere, unspecified severity, with behavioral disturbance; F10.239 Alcohol dependence with withdrawal, unspecified; S02.2XXA Fracture of nasal bones, initial encounter for closed fracture; I10 Essential (primary) hypertension; B19.20 Unspecified viral hepatitis C without hepatic coma; J44.9 Chronic obstructive pulmonary disease, unspecified; S80.01XA Contusion of right knee, initial encounter; S80.02XA Contusion of left knee, initial encounter; S00.81XA Abrasion of other part of head, initial encounter; W18.30XA Fall on same level, unspecified, initial encounter; Z91.14 Patient's other noncompliance with medication regimen; F19.10 Other psychoactive substance abuse, uncomplicated; R00.1 Bradycardia, unspecified; R31.9 Hematuria, unspecified; E87.6 Hypokalemia; N42.1 Congestion and hemorrhage of prostate; F12.10 Cannabis abuse, uncomplicated; F17.200 Nicotine dependence, unspecified, uncomplicated; F63.9 Impulse disorder, unspecified; Z87.820 Personal history of traumatic brain injury; S00.83XA Contusion of other part of head, initial encounter; I27.20 Pulmonary hypertension, unspecified; D50.0 Iron deficiency anemia secondary to blood loss (chronic); E53.8 Deficiency of other specified B group vitamins; E55.9 Vitamin D deficiency, unspecified; E78.5 Hyperlipidemia, unspecified; E83.39 Other disorders of phosphorus metabolism; E83.42 Hypomagnesemia; F12.20 Cannabis dependence, uncomplicated; F39 Unspecified mood [affective] disorder; G30.9 Alzheimer's disease, unspecified; G62.9 Polyneuropathy, unspecified; I07.1 Rheumatic tricuspid insufficiency; I35.8 Other nonrheumatic aortic valve disorders; I45.10 Unspecified right bundle-branch block; I70.0 Atherosclerosis of aorta; K56.41 Fecal impaction; L25.9 Unspecified contact dermatitis, unspecified cause; L85.3 Xerosis cutis; N30.90 Cystitis, unspecified without hematuria; N40.0 Benign prostatic hyperplasia without lower urinary tract symptoms; R29.6 Repeated falls; Z79.899 Other long term (current) drug therapy; Z91.83 Wandering in diseases classified elsewhere; I95.9 Hypotension, unspecified